=== PATIENT | female | born 1955 | race Caucasian/White ===

== ENCOUNTER 2016-07-28 18:24 | Inpatient (IN) | payer MEDICARE, MEDICAID ==
[2016-07-28] MEDS: NITROFURANTOIN MONOHYD/M-CRYST 100 MG CAPSULE PO SCH ×2 (18:00→23:40)
[2016-07-28 20:47] LABS: ABSOLUTE BASOPHILS # (AUTO) 0.1 10^3/uL (0.0-0.2); ABSOLUTE LYMPHOCYTES (AUTO) 2.6 10^3/uL (0.5-4.7); ABSOLUTE MONOCYTES (AUTO) 1.2 10^3/uL (0.1-1.4); BASOPHILS % (AUTO) 0.7 % (0-2); EOSINOPHILS % (AUTO) 0.1 % (0-6); HEMATOCRIT 29.8 % (36.0-47.0); HEMOGLOBIN 9.7 g/dL (12.0-15.5); HGB HCT DIFFERENCE -0.7; MEAN CORPUSCULAR HGB CONC 32.6 g/dL (32.0-36.0); MEAN CORPUSCULAR VOLUME 86 fl (80-97); MONOCYTES % (AUTO) 12.3 % (3-13); RED BLOOD COUNT 3.46 10^6/uL (3.72-5.28); RED CELL DISTRIBUTION WIDTH 13.9 % (11.5-14.0); SEGMENTED NEUTROPHILS % (AUTO) 60.9 % (42-78); WHITE BLOOD COUNT 9.8 10^3/uL (4.0-10.5)
[2016-07-28 21:00] LABS: ALANINE AMINOTRANSFERASE 23 U/L (9-52); ALBUMIN 4.3 g/dL (3.5-5.0); ALKALINE PHOSPHATASE 87 U/L (38-126); ANION GAP 15 (5-19); ASPARTATE AMINO TRANSFERASE 17 U/L (14-36); BILIRUBIN,TOTAL 0.5 mg/dL (0.2-1.3); BLOOD UREA NITROGEN 34 mg/dL (7-20); CARBON DIOXIDE 24 mmol/L (22-30); CHLORIDE 106 mmol/L (98-107); CREATININE RESULT 0.83 mg/dL (0.52-1.25); GLUCOSE 100 mg/dL (75-110); SODIUM 145.3 mmol/L (137-145); TOTAL PROTEIN 8.1 g/dL (6.3-8.2)
[2016-07-28 21:01] LABS: ALCOHOL < 10 mg/dL (NONE DETECTED)
[2016-07-28 22:40] LABS: APPEARANCE,URINE CLOUDY; BILIRUBIN,URINE NEGATIVE (NEGATIVE); GLUCOSE, URINE NEGATIVE (NEGATIVE); KETONES,URINE TRACE mg/dL (NEGATIVE); LEUKOCYTE ESTERASE,URINE LARGE (NEGATIVE); NITRITE,URINE NEGATIVE (NEGATIVE); PROTEIN,URINE 30 mg/dL (NEGATIVE); URINE SPECIFIC GRAVITY 1.023; UROBILINOGEN,URINE NEGATIVE mg/dL (<2.0)
[2016-07-28 22:59] LABS: URINE BARBITURATES SCREEN NEGATIVE; URINE METHADONE SCREEN NEGATIVE; URINE OPIATES LOW NEGATIVE; URINE PHENCYCLIDINE SCREEN NEGATIVE
[2016-07-28] MEDS ORDERED: CEFTRIAXONE INJ 500 MG VIAL IM ONE (23:02)
--- NOTE | 2016-07-28 23:06 | ER Document Report ---
ED Psych Disorder / Suicide - General Chief Complaint: Psych Problem Stated Complaint: BEHAVIOR ISSUES Time seen by provider: 23:03 Mode of Arrival: Medic Information source: Patient Notes: This is a 60-year-old female with a known history of schizophrenia and bipolar affective disorder with multiple presentations to the emergency room for altered mental status. Records show that she's had worsening mental status in the past in the setting of a UTI. The patient was brought into the emergency room because she became violent with the staff at the [facility]. TRAVEL OUTSIDE OF THE [place] IN LAST 30 DAYS: No - HPI Patient complains to provider of: Aggression, Agitated Onset: Just prior to arrival Onset was: Sudden Quality of pain: No pain Severity: None Pain Level: Denies Suicide Risk Factors: Bipolar, Chronic illness, Loss of rational thought, Schizophrenia Situational problems related to: denies: Daughter, Legal problems, Lost job, Parent, Recent , Recent divorce, School, Sexual orientation, Significant other, Son, Spouse, Work, Other Suicide Attempt Method: denies: Drowning, Hanging, Motor Vehicle, Overdose, Shooting, Stabbing/Cutting, Train, Other Overdose of: No: Acetominophen, Alcohol, Anticholinergic, Anti-depressants, Benzodiazepine, Salicylate, Tricyclic Antidepressant, Other Injury to: No: Generalized, Abdomen, Ankle, Back, Breast, Buttocks, Chest, Elbow , Epigastric, Flank, Face, Finger, Foot, Hand, Head, Hip, Knee, Leg, Lower extremity, Mouth, Neck, Pelvic, Penis, Perineum, Rectum, Shoulder, Testicle, Thigh, Throat, Trunk, Upper extremity, Vagina, Wrist Normal mood: No - labile Associated symptoms: Labile Similar symptoms previously: Yes Recently seen / treated by doctor: Yes - Related Data Allergies/Adverse Reactions: No Known Allergies Allergy (Verified 05/10/15 03:53) Past Medical History - General Information source: Patient - Social History Smoking Status: Never Smoker Cigarette use (# per day): No Chew tobacco use (# tins/day): No Frequency of alcohol use: None Drug Abuse: None Lives with: Other - The [facility] Family History: Reviewed & Not Pertinent Patient has suicidal ideation: No Patient has homicidal ideation: No - Past Medical History Cardiac Medical History: Reports: Hx Coronary Artery Disease, Hx Hypercholesterolemia, Hx Hypertension Denies: Hx Heart Attack Pulmonary Medical History: Denies: Hx Asthma, Hx Bronchitis, Hx COPD, Hx Pneumonia Neurological Medical History: Reports: Hx Seizures Musculoskeltal Medical History: Denies Hx Arthritis Skin Medical History: Reports Hx Eczema, Reports Hx MRSA Psychiatric Medical History: Reports: Hx Anxiety, Hx Dementia, Hx Obsessive Compulsive Disorder, 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 Past Surgical History: Reports: Hx Orthopedic Surgery - right index amputation, left index area removal - Immunizations Hx Diphtheria, Pertussis, Tetanus Vaccination: Yes Review of Systems - Review of Systems Constitutional: denies: Chills, Fever EENT: No symptoms reported Cardiovascular: No symptoms reported Respiratory: No symptoms reported Gastrointestinal: No symptoms reported Genitourinary: No symptoms reported Female Genitourinary: No symptoms reported Musculoskeletal: No symptoms reported Skin: No symptoms reported Hematologic/Lymphatic: No symptoms reported Neurological/Psychological: See HPI Physical Exam - Vital signs Vitals: Temp Pulse Resp BP Pulse Ox 98.9 F 94 20 134/94 H 95 07/28/16 18:59 07/28/16 18:59 07/28/16 18:59 07/28/16 18:59 07/28/16 18:59 Notes: Physical exam: GENERAL: 60-year-old female, appears emotionally labile, she is alert and walking around the room. She is afebrile with stable vital signs. She does not appear to be in any distress. HEAD: Atraumatic, normocephalic. EYES: Pupils equal round and reactive to light, extraocular movements intact, sclera anicteric, conjunctiva are normal. ENT: TMs normal, nares patent, oropharynx clear without exudates. Moist mucous membranes. NECK: Normal range of motion, supple without lymphadenopathy or JVD. LUNGS: Breath sounds clear to auscultation bilaterally and equal. No wheezes rales or rhonchi. HEART: Regular rate and rhythm without murmurs, rubs or gallops. ABDOMEN: Soft, normoactive bowel sounds. No tenderness to palpation. No guarding, no rebound. No masses appreciated. EXTREMITIES: Normal range of motion, no pitting or edema. No clubbing or cyanosis. NEUROLOGICAL: Cranial nerves II through XII grossly intact. Normal speech, normal gait. PSYCH: Normal mood, normal affect. SKIN: Warm, Dry, normal turgor, no rashes or lesions noted. Course - Re-evaluation Re-evalutation: 07/28/16 23:06 Note: It might be that the patient's psychiatric illness is worse in the setting of a UTI. The plan will be to treat for a UTI and to observe her overnight and have psychiatry reassess her tomorrow. I do not see any evidence of acute delirium. The patient is walking around and is quite alert and in no distress. [facility] and she does have a history of this and the settings of UTIs. - Vital Signs Vital signs: Temp Pulse Resp BP Pulse Ox 98.9 F 94 20 134/94 H 95 07/28/16 18:59 07/28/16 18:59 07/28/16 18:59 07/28/16 18:59 07/28/16 18:59 - Laboratory Result Diagrams: 07/28/16 20:30 07/28/16 20:30 Laboratory results interpreted by me: 07/28/16 07/28/16 07/28/16 20:30 20:30 21:13 RBC 3.46 L Hgb 9.7 L Hct 29.8 L Sodium 145.3 H BUN 34 H Urine Protein 30 H Urine Ketones TRACE H Ur Leukocyte Esterase LARGE H Salicylates < 1.0 L Acetaminophen < 10 L - EKG Interpretation by Me Rate: Normal Rhythm: NSR - EKG shows normal sinus rhythm with left ventricular hypertrophy, no acute ST-T wave changes. Discharge - Discharge Clinical Impression: schizophrenia, UTI Condition: Stable Disposition: PSYCH HOSP/UNIT Referrals: JUAN M LE MD [Primary Care Provider] - Follow up as needed
[2016-07-29] MEDS ORDERED: HALOPERIDOL LACTATE INJ 5 MG/1 ML VIAL IM ONE ×2 (00:06→03:34)
[2016-07-29] MEDS ORDERED: LORAZEPAM INJ 2 MG/1 ML VIAL IM ONE ×2 (00:07→03:34)
[2016-07-29] MEDS ORDERED: DIPHENHYDRAMINE HCL 50 MG/ML VIAL IM ONE (00:07)
[2016-07-29] MEDS: NITROFURANTOIN MONOHYD/M-CRYST 100 MG CAPSULE PO SCH ×2 (00:30→17:15)
--- NOTE | 2016-07-29 04:02 | ER Document Report ---
Doctor's Note Notes: 07/29/16 04:01 Patient's continue to try to leave the room. She continued to fight with security. We did give her Haldol and Ativan. She continued to fight despite these medications. Patient will be placed in soft wrist restraints. This is to help keep her from eloping and keep her from being a danger to herself.
[2016-07-29] MEDS ORDERED: DIVALPROEX SODIUM 125 MG CAP.SPRINK PO ONE (07:58)
[2016-07-29] MEDS ORDERED: CLONIDINE HCL 0.2 MG TABLET PO ONE (09:22)
[2016-07-29] MEDS: DIVALPROEX SODIUM 125 MG CAP.SPRINK PO SCH ×2 (09:32→17:13)
[2016-07-29] MEDS ORDERED: HYDROXYZINE PAMOATE 50 MG CAPSULE PO ONE (09:54)
--- NOTE | 2016-07-29 11:24 | PSYCHOLOGICAL NOTE ---
Psych Note - Psych Note Psych Note: Patient presented to [facility] ED with known history of schizophrenia and bipolar affective disorder with multiple presentations to the emergency room for altered mental status. Records show that she's had worsening mental status in the past in the setting of a UTI. The patient was brought into the emergency room because [facility] Clinician observes patient pressure around on bed attempting to communicate however unable to understand what patient is attempting to say. Patient's voice is low in sounds coming out sound as if patient is very hoarse; clinician notes tone and prosody is at baseline for patient; however rate, and thought process is not at baseline. Patient makes eye contact well attempting to speak. Patient is demonstrating behavior that she is responding to internal stimuli with eyes moving around the room, appearing to jump in surprise at times , and attempting communicate in several directions. Diagnosis: Vascular Dementia Based on review of past medical records to include CT scans from 9250-8324, the patient's reaction to benzodiazepines and antipsychotics, and the patient's presentation, evidence indicates Vascular Dementia. Any antipsychotic medication or benzodiazepines will aggravate symptoms. Unspecified Schizophrenia or psychosis per history
--- NOTE | 2016-07-29 14:53 | ER Document Report ---
Doctor's Note Notes: 07/29/16 14:52 Rounds: Chart reviewed and patient interviewed. Patient not making any sense in her conversation and is very anxious and agitated. Vital signs are all essentially normal, although she does have some slight increase in heart rate and respiratory rate this afternoon. Initial labs show no acute problems. Chronic appearing anemia. Patient appears to be medically stable for transfer or discharge. Yasir Bernal M.D. 07/29/16 20:10 Patient continues to be intermittently agitated rolling about in the bed with her soft restraints on her wrists. There is some rubbing of the tissue at the wrist concerning the nursing staff that the patient may get some skin breakdown. We're going to try to reinforce with some padding. I'm giving the patient an extra 0.25 mg of Risperdal now.
[2016-07-29] MEDS ORDERED: RISPERIDONE 0.25 MG TABLET PO ONE ×2 (14:59→20:09)
--- NOTE | 2016-07-29 16:55 | EKG REPORT ---
SEVERITY:- ABNORMAL ECG - SINUS RHYTHM LEFT VENTRICULAR HYPERTROPHY : Confirmed by: Lara Ness MD 29-Jul-2016 16:54:25
[2016-07-29] MEDS ORDERED: RISPERIDONE 0.25 MG TABLET PO SCH ×2 (18:00)
[2016-07-29] MEDS: BUSPIRONE HCL 10 MG TABLET PO SCH (22:06)
[2016-07-30] MEDS: NITROFURANTOIN MONOHYD/M-CRYST 100 MG CAPSULE PO SCH (08:14)
--- NOTE | 2016-07-30 08:50 | PSYCHOLOGICAL NOTE ---
Psych Note - Psych Note Psych Note: Check in Patient presented to [facility] ED with known history of schizophrenia and bipolar affective disorder with multiple presentations to the emergency room for altered mental status. Records show that she's had worsening mental status in the past in the setting of a UTI. The patient was brought into the emergency room because [facility] Patient was able to communicate with some words instead of grunting earlier this morning however is still actively hallucinating. Overall, communication with patient is unsuccessful and currently patient is using hands and sounds in an attempt to communicate. Patient is still trashing around on bed and is currently in soft restraints. Records indicate that patient did get some rest after evening medications. Diagnosis: Vascular Dementia Based on review of past medical records to include CT scans from [id number], the patient's reaction to benzodiazepines and antipsychotics, and the patient's presentation, evidence indicates Vascular Dementia. Any antipsychotic medication or benzodiazepines will aggravate symptoms. Unspecified Schizophrenia or psychosis per history Addendum: Clinician spoke with patient's sister, Shu, she states that her sister is "not like this" normally. She does have good days and bad but she is able to go out in the community to [employer] and show what shed would like to have. She is also able to communicate. She continued to state that in the past she know that she has had mental health issues when she has a UTI.
[2016-07-30] MEDS ORDERED: LIDOCAINE 1% INJ-PF (10 MG/ML) 30 ML SDV INJ ONE (09:51)
[2016-07-30] MEDS ORDERED: CEFTRIAXONE INJ 1000 MG VIAL IM ONE (09:51)
--- NOTE | 2016-07-30 09:51 | ER Document Report ---
Doctor's Note Notes: 07/30/16 09:44 Rounds: Chart reviewed and patient evaluated. Patient continues to thrash about mumbling unintelligible words her statements. She is moving all 4 extremities. Her upper extremities are restrained with soft restraints to prevent self-harm or falling out of the bed, etc. Patient's behavior has shown little change, if any, since medications were initiated. We have started her on Depakote 500 mg twice a day and Risperdal 0.25 at 8 AM and again at 3 PM daily. She's currently on nitrofurantoin for UTI. I just called the lab and they're reporting out greater than 100,000 enterococcus growing on her urine culture and sensitivities will be available tomorrow. I'm going to give the patient an injection of Rocephin IM to feel more certain that the patient is getting sufficient antibiotic treatment for a UTI. I still don't think the UTI counts for much, if any, of the patient's mental status alteration or behavior that she is exhibiting. Patient's vital signs are normal, not febrile. Other labs are essentially normal. And the patient reportedly has episodes like this with UTIs in the past. She is a resident at [facility] and very likely some of her behavior is chronic dementia related. But, I still think the patient needs some additional sedation medication. Yasir Bernal M.D. 07/30/16 20:39 Patient continues to be agitated and acting the same way she has been up until now. Family came to visit and says that this behavior is not like her at all. Nurse reports to me that the patient has a low-grade temp, 100.5. A rectal showed a temp of about the same. I will order to re-draw of patients basic labs and a couple of blood cultures and I've ordered another gram of Rocephin for tomorrow morning. Yasir Bernal M.D.
[2016-07-30] MEDS: DIVALPROEX SODIUM 125 MG CAP.SPRINK PO SCH ×2 (11:00→19:30)
[2016-07-30] MEDS ORDERED: RISPERIDONE 0.25 MG TABLET PO SCH (15:00)
[2016-07-30] MEDS ORDERED: HYDROXYZINE PAMOATE 50 MG CAPSULE PO ONE (20:33)
[2016-07-30 22:14] LABS: ABSOLUTE BASOPHILS # (AUTO) 0.1 10^3/uL (0.0-0.2); ABSOLUTE LYMPHOCYTES (AUTO) 1.9 10^3/uL (0.5-4.7); ABSOLUTE MONOCYTES (AUTO) 1.3 10^3/uL (0.1-1.4); ABSOLUTE NEUT (AUTO) 10.3 10^3/uL (1.7-8.2); BASOPHILS % (AUTO) 0.5 % (0-2); HEMATOCRIT 33.9 % (36.0-47.0); HEMOGLOBIN 11.1 g/dL (12.0-15.5); HGB HCT DIFFERENCE -0.6; LYMPHOCYTES % (AUTO) 14.2 % (13-45); MEAN CORPUSCULAR HEMOGLOBIN 27.6 pg (27.0-33.4); MEAN CORPUSCULAR HGB CONC 32.8 g/dL (32.0-36.0); MEAN CORPUSCULAR VOLUME 84 fl (80-97); MONOCYTES % (AUTO) 9.5 % (3-13); RED BLOOD COUNT 4.03 10^6/uL (3.72-5.28); RED CELL DISTRIBUTION WIDTH 13.6 % (11.5-14.0); SEGMENTED NEUTROPHILS % (AUTO) 75.8 % (42-78); WHITE BLOOD COUNT 13.5 10^3/uL (4.0-10.5)
[2016-07-30] MEDS: BUSPIRONE HCL 10 MG TABLET PO SCH (22:25)
[2016-07-30 22:32] LABS: ALANINE AMINOTRANSFERASE 32 U/L (9-52); ALKALINE PHOSPHATASE 95 U/L (38-126); ASPARTATE AMINO TRANSFERASE 48 U/L (14-36); BILIRUBIN,TOTAL 0.9 mg/dL (0.2-1.3); BLOOD UREA NITROGEN 35 mg/dL (7-20); CALCIUM 10.7 mg/dL (8.4-10.2); CREATINE KINASE 954 U/L (30-135); CREATININE RESULT 0.91 mg/dL (0.52-1.25); GLUCOSE 99 mg/dL (75-110); TOTAL PROTEIN 8.9 g/dL (6.3-8.2)
[2016-07-30 22:56] LABS: ANION GAP 23 (5-19)
[2016-07-30 22:57] LABS: CARBON DIOXIDE 21 mmol/L (22-30); CHLORIDE 112 mmol/L (98-107); POTASSIUM 3.8 mmol/L (3.6-5.0); SODIUM 155.5 mmol/L (137-145)
[2016-07-31] MEDS ORDERED: DEXTROSE 5% IV ONE (01:37)
[2016-07-31] MEDS ORDERED: 1/2 NORMAL SALINE IV ONE (01:37)
[2016-07-31] MEDS ORDERED: HALOPERIDOL LACTATE INJ 5 MG/1 ML VIAL IM ONE (01:38)
[2016-07-31] MEDS ORDERED: CEFTRIAXONE INJ 1000 MG VIAL IV ONE (02:20)
--- NOTE | 2016-07-31 02:26 | ER Document Report ---
ED General - General Chief Complaint: Psych Problem Stated Complaint: BEHAVIOR ISSUES Mode of Arrival: Medic TRAVEL OUTSIDE OF THE [place] IN LAST 30 DAYS: No - Related Data Allergies/Adverse Reactions: Benzodiazepines Adverse Reaction (Verified 07/29/16 16:17) Abnormal behavior anti-psychotics Adverse Reaction (Uncoded 07/29/16 16:14) Abnormal behavior Home Medications: Current Home Medications Acetaminophen [Tylenol 325 mg Tablet] 650 mg PO Q8 07/29/16 [History] Aripiprazole [Abilify 10 mg Tablet] 10 mg PO DAILY 07/29/16 [History] Benztropine Mesylate [Benztropine Mesylate 2 mg Tablet] 2 mg PO BID 07/29/16 [ History] Bisacodyl [Dulcolax 5 mg Tablet] 10 mg PO Q2D 07/29/16 [History] Calcium Carbonate [Calcium] 500 mg PO Q4HP PRN 07/29/16 [History] Divalproex Sodium 250 mg PO QHS 07/29/16 [History] Docusate Sodium [Colace 100 mg Capsule] 100 mg PO QHS 07/29/16 [History] Haloperidol [Haldol 2 mg Tablet] 2 mg PO BID 07/29/16 [History] Lorazepam 2 mg PO Q6HP PRN 07/29/16 [History] Lorazepam [Ativan 1 mg Tablet] 1 mg PO BID 07/29/16 [History] Past Medical History - General Information source: Patient - Social History Smoking Status: Never Smoker Cigarette use (# per day): No Chew tobacco use (# tins/day): No Frequency of alcohol use: None Drug Abuse: None [facility] Family History: Reviewed & Not Pertinent Patient has suicidal ideation: No Patient has homicidal ideation: No - Past Medical History Cardiac Medical History: Reports: Hx Coronary Artery Disease, Hx Hypercholesterolemia, Hx Hypertension Denies: Hx Heart Attack Pulmonary Medical History: Denies: Hx Asthma, Hx Bronchitis, Hx COPD, Hx Pneumonia Neurological Medical History: Reports: Hx Seizures Musculoskeltal Medical History: Denies Hx Arthritis Skin Medical History: Reports Hx Eczema, Reports Hx MRSA Psychiatric Medical History: Reports: Hx Anxiety, Hx Dementia, Hx Obsessive Compulsive Disorder, 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 She has a history of vascular dementia and schizophrenia. She has been agitated frequently throughout her ER stay and has received multiple doses of antipsychotics. RN alerted me to patient's labs that showed a CK of 987 and sodium that increased from 145-155. In addition, she now has a leukocytosis with UTI symptoms. 2L bolus of D5-1/2NS. Patient will require medical admission for IV antibiotics and further evaluation and treatment before she is able to be medically cleared for psychiatric evaluation. Will send a lactate because of multiple SIRS criteria. Pt of Dr. Le's. Spoke to Dr. Cordero at 02:30 and he has accepted patient as Inpatient Tele. - Vital Signs Vital signs: Temp Pulse Resp BP Pulse Ox 100.6 F H 58 L 22 H 132/75 H 96 07/30/16 19:45 07/30/16 18:55 07/30/16 18:55 07/30/16 18:55 07/30/16 18:55 - Laboratory Result Diagrams: 07/30/16 21:45 07/30/16 21:45 Laboratory results interpreted by me: 07/28/16 07/28/16 07/28/16 20:30 20:30 21:13 WBC RBC 3.46 L Hgb 9.7 L Hct 29.8 L Absolute Neutrophils Sodium 145.3 H Chloride Carbon Dioxide Anion Gap BUN 34 H Calcium AST Creatine Kinase Total Protein Urine Protein 30 H Urine Ketones TRACE H Ur Leukocyte Esterase LARGE H Salicylates < 1.0 L Acetaminophen < 10 L 07/30/16 07/30/16 21:45 21:45 WBC 13.5 H RBC Hgb 11.1 L Hct 33.9 L Absolute Neutrophils 10.3 H Sodium 155.5 H Chloride 112 H Carbon Dioxide 21 L Anion Gap 23 H BUN 35 H Calcium 10.7 H AST 48 H Creatine Kinase 954 H Total Protein 8.9 H Urine Protein Urine Ketones Ur Leukocyte Esterase Salicylates Acetaminophen Discharge - Discharge Clinical Impression: UTI, schizophrenia Altered mental status Qualifiers: Altered mental status type: unspecified Qualified Code(s): R41.82 - Altered mental status, unspecified Condition: Stable Disposition: ADMITTED INPATIENT Admitting Provider: [facility] Unit Admitted: Telemetry Referrals: JUAN M LE MD [Primary Care Provider] - Follow up as needed
[2016-07-31] MEDS ORDERED: KETOROLAC TROMETHAMINE INJ/PF 30 MG/1 ML SDV IV ONE (02:27)
[2016-07-31] MEDS ORDERED: LORAZEPAM INJ 2 MG/1 ML VIAL IV ONE (03:03)
[2016-07-31] MEDS ORDERED: DEXTROSE 5%-1/2 NORMAL SALINE 1,000 ML IV PRN (05:17)
[2016-07-31] MEDS ORDERED: LORAZEPAM 1 MG TABLET PO PRN (05:17)
[2016-07-31] MEDS ORDERED: LIDOCAINE 1% INJ-PF (10 MG/ML) 30 ML SDV INJ SCH (08:00)
[2016-07-31] MEDS ORDERED: CEFTRIAXONE INJ 1000 MG VIAL IM SCH (08:00)
[2016-07-31] MEDS ORDERED: (PENDING PHARMACY ID) (Calcium Carbonate [Calcium] 500 MG) PO PRN (09:02)
[2016-07-31] MEDS ORDERED: (PENDING PHARMACY ID) (Lorazepam [Lorazepam] 2 MG) PO PRN (09:02)
[2016-07-31] MEDS ORDERED: BISACODYL 5 MG TABEC PO SCH (09:15)
--- NOTE | 2016-07-31 09:25 | PSYCHOLOGICAL NOTE ---
Psych Note - Psych Note Psych Note: Patient is a 60 year old female who has been admitted to [facility] due to complications due to UTI. Patient is a resident at [facility], which per record, is where she is scheduled to return. Patient has been evaluated multiple times here in the Department by Dr. Alvarado as well as medical staff. Patient's record suggests a history of Vascular Dementia, and per sister has exasperated mental health symptoms when experiencing medical complications. Patient at this time is recommended for rescind IVC due to the medical etiology of her presentation. I consulted with Dr. Alvarado in regards to the care and management of this patient. Hospitalist Dr. Cordero made aware of recommendations; however, disagrees re: the rescind of IVC. Patient is discharged from this services at this time. Please reconsult at a later time should the need arise for further evaluation. Thank you kindly for this referral. Diagnosis: Vascular Dementia Based on review of past medical records to include CT scans from [id number], the patient's reaction to benzodiazepines and antipsychotics, and the patient's presentation, evidence indicates Vascular Dementia. Any antipsychotic medication or benzodiazepines will aggravate symptoms. Unspecified Schizophrenia or psychosis per history
[2016-07-31] MEDS ORDERED: CALCIUM CARBONATE 500 MG TAB.CHEW PO PRN (09:30)
[2016-07-31] MEDS ORDERED: LORAZEPAM 1 MG TABLET PO SCH (10:00)
[2016-07-31] MEDS ORDERED: HALOPERIDOL 2 MG TABLET PO SCH (10:00)
[2016-07-31] MEDS ORDERED: (PENDING PHARMACY ID) (Aripiprazole [Abilify 10 Mg Tablet] 10 MG) PO SCH (10:00)
[2016-07-31] MEDS ORDERED: ARIPIPRAZOLE 5 MG TABLET PO SCH (10:00)
[2016-07-31] MEDS ORDERED: LORAZEPAM INJ 2 MG/1 ML VIAL IV PRN (10:41)
[2016-07-31] MEDS: LORAZEPAM 1 MG TABLET PO SCH ×2 (11:16→17:55)
[2016-07-31] MEDS: BENZTROPINE MESYLATE 1 MG TABLET PO SCH ×2 (11:16→17:56)
[2016-07-31] MEDS: CEFTRIAXONE 1 GM/D5W RTU 1 GM/50 ML RTUPB IV SCH (11:17)
[2016-07-31] MEDS: BISACODYL 5 MG TABEC PO SCH (11:18)
[2016-07-31] MEDS: ACETAMINOPHEN 325 MG TABLET PO SCH ×3 (11:18→23:04)
[2016-07-31] MEDS ORDERED: RISPERIDONE 0.25 MG TABLET PO ONE (11:30)
--- NOTE | 2016-07-31 11:52 | PDOC H&P ---
History of Present Illness Admission Date/PCP: 07/31/16 02:43 JUAN M LE MD Patient complains of: Altered mental status History of Present Illness: VALERY SORIA is a 60 year old female This is a 60-year-old female came to the emergency department for several days. She had a history of the muscular dementia and schizophrenia. was hesitated frequently throughout the her ER stay and that is symptomatic per dose of the antipsychotic. The the nurses so monitor the patient's supposed the patient's CK was 987 and patient's some sodium is going to up to 145-155 and the patient's also have a elevated white counts with the urinary symptoms. At this point patient's was given IV antibiotic and IV fluid and admitting in the hospital for further medical treatments. Patient's serum also seen by the psychologist and suggest the DC the all psychiatric medications as per discussed with myself and suggest to use the BuSpar and that aspirated all. Patient was admitting in the hospital for the IV antibiotic and IV fluid. When I saw the patient's in the ER room patient still was a little agitated and according to the staff patient have this before ongoing problem for to further ongoing schizophrenia and a vascular dementia. Past Medical History Cardiac Medical History: Reports: Coronary Artery Disease, Hyperlipidema, Hypertension Denies: Myocardial Infarction Pulmonary Medical History: Denies: Asthma, Bronchitis, Chronic Obstructive Pulmonary Disease (COPD), Pneumonia Neurological Medical History: Reports: Seizures Musculoskeltal Medical History: Denies: Arthritis Skin Medical History: Reports: Eczema Psychiatric Medical History: Reports: Dementia Hematology: Denies: Anemia Past Surgical History Past Surgical History: Reports: Orthopedic Surgery - right index amputation, left index area removal Social History [facility] with: [facility] Smoking Status: Never Smoker - Advance Directive Resuscitation Status: Full Code Family History Family History: Reviewed & Not Pertinent Parental Family History Reviewed: Yes Children Family History Reviewed: Yes Sibling(s) Family History Reviewed.: Yes Medication/Allergy Home Medications: Haloperidol [Haldol 5 mg Tablet] 5 mg PO BID 11/16/13 Ibuprofen [Motrin 600 Mg Tablet] 600 mg PO TID #30 tablet 03/29/15 Acetaminophen [Tylenol 325 mg Tablet] 650 mg PO Q8 07/29/16 Aripiprazole [Abilify 10 mg Tablet] 10 mg PO DAILY 07/29/16 Benztropine Mesylate [Benztropine Mesylate 2 mg Tablet] 2 mg PO BID 07/29/16 Bisacodyl [Dulcolax 5 mg Tablet] 10 mg PO Q2D 07/29/16 Calcium Carbonate [Calcium] 500 mg PO Q4HP PRN 07/29/16 Divalproex Sodium 250 mg PO QHS 07/29/16 Docusate Sodium [Colace 100 mg Capsule] 100 mg PO QHS 07/29/16 Haloperidol [Haldol 2 mg Tablet] 2 mg PO BID 07/29/16 Lorazepam 2 mg PO Q6HP PRN 07/29/16 Lorazepam [Ativan 1 mg Tablet] 1 mg PO BID 07/29/16 Allergies/Adverse Reactions: Benzodiazepines Adverse Reaction (Verified 07/31/16 11:29) anti-psychotics Adverse Reaction (Uncoded 07/29/16 16:14) Abnormal behavior Review of Systems ROS unobtainable: Due to mental status All systems: as per [facility] Physical Exam Vital Signs: Temp Pulse Resp BP Pulse Ox 98.4 F 92 21 H 119/65 99 07/31/16 08:45 07/31/16 08:45 07/31/16 08:45 07/31/16 08:45 07/31/16 08:45 General appearance: PRESENT: no acute distress, other - Noncooperative and very agitated Head exam: PRESENT: normocephalic Eye exam: PRESENT: EOMI Neck exam: ABSENT: carotid bruit, full ROM, JVD, lymphadenopathy, meningismus, tenderness, thyromegaly, tracheal deviation, tracheostomy, other Respiratory exam: ABSENT: accessory muscle use, chest wall tenderness, clear to auscultation meera, crackles, decreased breath sounds, prolonged expiratory phas, rales, retraction, rhonchi, stridor, symmetrical, tachypnea, unlabored, wheezes , other Cardiovascular exam: ABSENT: bradycardia, clicks, diastolic murmur, gallop, irregular rhythm, RRR, rubs, +S1, +S2, systolic murmur, tachycardia, other GI/Abdominal exam: ABSENT: ascites, diminished bowel sounds, distended, firm, guarding, hernia, hyperactive bowel sounds, hypoactive bowel sounds, mass, Khan's sign, normal bowel sounds, organolmegaly, rebound, rigid, soft, tenderness, other Extremities exam: ABSENT: pedal edema Neurological exam: PRESENT: alert, altered, awake Psychiatric exam: PRESENT: agitated, anxious Skin exam: PRESENT: dry Results Laboratory Results: 07/31/16 07/31/16 03:27 08:04 Lactic Acid 3.1 H 1.3 Assessment & Plan - Diagnosis (1) Urinary tract infection Qualifiers: Urinary tract infection type: site unspecified Is this a current diagnosis for this admission?: YesPlan: Start the patient on IV Rocephin and await for the culture (2) Leukocytosis Qualifiers: Leukocytosis type: unspecified Qualified Code(s): D72.829 - Elevated white blood cell count, unspecified Is this a current diagnosis for this admission?: YesPlan: Continues to IV antibiotic (3) Dementia Qualifiers: Dementia type: unspecified type Is this a current diagnosis for this admission?: YesPlan: Patient have a known history of the vascular dementia (4) Altered mental status Qualifiers: Altered mental status type: unspecified Qualified Code(s): R41.82 - Altered mental status, unspecified Is this a current diagnosis for this admission?: YesPlan: We will get the CT of the head (5) Schizophrenia Qualifiers: Schizophrenia type: unspecified Qualified Code(s): F20.9 - Schizophrenia, unspecified Is this a current diagnosis for this admission?: YesPlan: Discussed with the psych and follow with the psych (6) Hypernatremia Is this a current diagnosis for this admission?: YesPlan: Start the patient on a D5 1 half normal saline with the underlying some rhabdo due to the most agitated behavior - Time Time Spent: 30 to 50 Minutes Medications reviewed and adjusted accordingly: Yes Anticipated discharge: Other Within: Other - Inpatient Certification Medical Necessity: Need Close Monitoring Due to Risk of Patient Decompensation, Need for IV Antibiotics Post Hospital Care: D/C Sole Splitter Documentation - Plan Summary Plan Summary: Patient is admitted for UTI and altered mental status and hypernatremic dehydration's start the patient on IV Rocephin IV fluid and possible underlying rhabdo. Discussed with the psychologist and adjust psych medications and continues to monitor the patient's will get the CT of the head
[2016-07-31] MEDS ORDERED: DOCUSATE SODIUM 100 MG CAPSULE PO SCH (22:00)
[2016-07-31] MEDS ORDERED: DIVALPROEX SODIUM 250 MG TABLET.DR PO SCH (22:00)
[2016-07-31] MEDS: RISPERIDONE 0.25 MG TABLET PO SCH (23:04)
[2016-07-31] MEDS: DIVALPROEX SODIUM 250 MG TAB.SR.24H PO SCH (23:04)
[2016-07-31] MEDS: BUSPIRONE HCL 10 MG TABLET PO SCH (23:04)
[2016-07-31] MEDS: DOCUSATE SODIUM 100 MG CAPSULE PO SCH (23:04)
[2016-07-31] MEDS: DEXTROSE 5%-1/2 NORMAL SALINE 1,000 ML IV PRN (23:31)
[2016-08-01] MEDS: ACETAMINOPHEN 325 MG TABLET PO SCH ×3 (05:35→23:18)
[2016-08-01] MEDS ORDERED: LORAZEPAM INJ 2 MG/1 ML VIAL IV PRN (06:00)
[2016-08-01 06:54] LABS: ABSOLUTE LYMPHOCYTES (AUTO) 2.3 10^3/uL (0.5-4.7); ABSOLUTE NEUT (AUTO) 5.5 10^3/uL (1.7-8.2); BASOPHILS % (AUTO) 0.2 % (0-2); EOSINOPHILS % (AUTO) 0.3 % (0-6); HEMATOCRIT 29.8 % (36.0-47.0); HEMOGLOBIN 9.8 g/dL (12.0-15.5); HGB HCT DIFFERENCE -0.4; MEAN CORPUSCULAR HGB CONC 32.8 g/dL (32.0-36.0); MEAN CORPUSCULAR VOLUME 85 fl (80-97); MONOCYTES % (AUTO) 11.5 % (3-13); RED BLOOD COUNT 3.49 10^6/uL (3.72-5.28); RED CELL DISTRIBUTION WIDTH 13.9 % (11.5-14.0); WHITE BLOOD COUNT 8.8 10^3/uL (4.0-10.5)
[2016-08-01 07:17] LABS: ANION GAP 14 (5-19); BLOOD UREA NITROGEN 22 mg/dL (7-20); CALCIUM 9.2 mg/dL (8.4-10.2); CARBON DIOXIDE 23 mmol/L (22-30); CHLORIDE 114 mmol/L (98-107); CREATININE RESULT 0.53 mg/dL (0.52-1.25); GLUCOSE 107 mg/dL (75-110); POTASSIUM 3.2 mmol/L (3.6-5.0); SODIUM 151.4 mmol/L (137-145)
[2016-08-01] MEDS: LORAZEPAM 1 MG TABLET PO SCH ×2 (09:59→17:27)
[2016-08-01] MEDS: RISPERIDONE 0.25 MG TABLET PO SCH (10:00)
[2016-08-01] MEDS: BENZTROPINE MESYLATE 1 MG TABLET PO SCH ×2 (10:00→17:27)
[2016-08-01] MEDS: DEXTROSE 5%-1/2 NORMAL SALINE 1,000 ML IV PRN (10:05)
[2016-08-01] MEDS: CEFTRIAXONE 1 GM/D5W RTU 1 GM/50 ML RTUPB IV SCH (12:04)
--- NOTE | 2016-08-01 19:49 | PDOC PROGRESS REPORT ---
Subjective Progress Note for:: 08/01/16 Subjective:: She has schizophrenia and she is very disruptive, she has not been taking antipsychotic medications. she has been spitting out the PO antipsychotic medications .The urine culture grew enterococus faecalic sensitive to ampicillin Physical Exam Vital Signs: Temp Pulse Resp BP Pulse Ox 97.5 F 84 20 117/66 99 08/01/16 11:42 08/01/16 16:00 08/01/16 16:00 08/01/16 16:00 08/01/16 11:42 Intake & Output 07/31/16 08/01/16 08/02/16 06:59 06:59 06:59 Intake Total 878 1259 Balance 878 1259 General appearance: PRESENT: disheveled Eye exam: PRESENT: PERRLA Respiratory exam: PRESENT: clear to auscultation meera Cardiovascular exam: PRESENT: +S1, +S2 GI/Abdominal exam: PRESENT: soft Neurological exam: PRESENT: alert Results Laboratory Results: 08/01/16 06:40 08/01/16 06:40 08/01/16 08/01/16 06:40 06:40 WBC 8.8 RBC 3.49 L Hgb 9.8 L Hct 29.8 L MCV 85 MCH 28.0 MCHC 32.8 RDW 13.9 Plt Count 175 Seg Neutrophils % 62.0 Lymphocytes % 26.0 Monocytes % 11.5 Eosinophils % 0.3 Basophils % 0.2 Absolute Neutrophils 5.5 Absolute Lymphocytes 2.3 Absolute Monocytes 1.0 Absolute Eosinophils 0.0 Absolute Basophils 0.0 Sodium 151.4 H Potassium 3.2 L Chloride 114 H Carbon Dioxide 23 Anion Gap 14 BUN 22 H Creatinine 0.53 Est GFR ( Amer) > 60 Est GFR (Non-Af Amer) > 60 Glucose 107 Calcium 9.2 Impressions: Chest X-Ray 07/31/16 00:00 IMPRESSION: NO ACUTE RADIOGRAPHIC FINDING IN THE CHEST. Head CT 07/31/16 00:00 IMPRESSION: No acute abnormality in the brain. Assessment & Plan - Diagnosis (1) Enterococcus UTI Is this a current diagnosis for this admission?: YesPlan: Start ampicillin (2) Hypernatremia Is this a current diagnosis for this admission?: Yes (3) Schizophrenia Qualifiers: Schizophrenia type: unspecified Qualified Code(s): F20.9 - Schizophrenia, unspecified Is this a current diagnosis for this admission?: Yes
[2016-08-01] MEDS ORDERED: POTASSI CL 20 MEQ/50 ML RIDER 50 ML IV ONE (21:56)
[2016-08-02] MEDS: BUSPIRONE HCL 10 MG TABLET PO SCH ×2 (00:17→22:27)
[2016-08-02] MEDS: DIVALPROEX SODIUM 250 MG TAB.SR.24H PO SCH ×2 (00:17→22:26)
[2016-08-02] MEDS: AMPICILLIN SODIUM 750 GM in NORMAL SALINE 50 ML IV SCH ×2 (00:52→05:22)
[2016-08-02] MEDS: HALOPERIDOL LACTATE INJ 5 MG/1 ML VIAL IV PRN ×3 (00:53→13:05)
[2016-08-02] MEDS: DOCUSATE SODIUM 100 MG CAPSULE PO SCH ×2 (00:53→22:27)
[2016-08-02] MEDS: RISPERIDONE 0.25 MG TABLET PO SCH ×3 (00:53→22:26)
[2016-08-02] MEDS: ACETAMINOPHEN 325 MG TABLET PO SCH ×3 (05:23→22:27)
[2016-08-02] MEDS: NORMAL SALINE IV SCH ×2 (11:35→18:08)
[2016-08-02] MEDS: AMPICILLIN SODIUM IV SCH ×2 (11:35→18:08)
[2016-08-02] MEDS: BISACODYL 5 MG TABEC PO SCH (11:51)
[2016-08-02] MEDS: BENZTROPINE MESYLATE 1 MG TABLET PO SCH ×2 (11:51→20:18)
[2016-08-02] MEDS: LORAZEPAM 1 MG TABLET PO SCH ×2 (12:34→20:18)
[2016-08-02] MEDS: DEXTROSE 5%-1/2 NORMAL SALINE 1,000 ML IV PRN (13:05)
--- NOTE | 2016-08-02 19:11 | PDOC PROGRESS REPORT ---
Subjective Progress Note for:: 08/02/16 Subjective:: She has E faecalis UTI, she is not on any by mouth medications ,she is on IV medication .The IV line tissued on the right upper extremity Physical Exam Vital Signs: Temp Pulse Resp BP Pulse Ox 98.4 F 74 18 101/54 L 100 08/02/16 16:00 08/02/16 16:00 08/02/16 16:00 08/02/16 16:00 08/02/16 16:00 Intake & Output 08/01/16 08/02/16 08/03/16 06:59 06:59 06:59 Intake Total 878 2042 1267 Balance 878 2042 1267 General appearance: PRESENT: no acute distress Eye exam: PRESENT: PERRLA Respiratory exam: PRESENT: clear to auscultation meera Cardiovascular exam: PRESENT: +S1, +S2 Psychiatric exam: PRESENT: agitated Results Laboratory Results: 08/01/16 06:40 08/01/16 06:40 Impressions: Chest X-Ray 07/31/16 00:00 IMPRESSION: NO ACUTE RADIOGRAPHIC FINDING IN THE CHEST. Head CT 07/31/16 00:00 IMPRESSION: No acute abnormality in the brain. Assessment & Plan - Diagnosis (1) Enterococcus UTI Is this a current diagnosis for this admission?: YesPlan: Continue IV ampicillin (2) Hypernatremia Is this a current diagnosis for this admission?: Yes (3) Schizophrenia Qualifiers: Schizophrenia type: unspecified Qualified Code(s): F20.9 - Schizophrenia, unspecified Is this a current diagnosis for this admission?: YesPlan: Patient continues to nothing by mouth, she is psychotic
[2016-08-03] MEDS: DEXTROSE 5%-1/2 NORMAL SALINE 1,000 ML IV PRN (00:54)
[2016-08-03] MEDS: HALOPERIDOL LACTATE INJ 5 MG/1 ML VIAL IV PRN ×3 (00:54→08:58)
[2016-08-03] MEDS: NORMAL SALINE IV SCH ×4 (00:54→23:31)
[2016-08-03] MEDS: AMPICILLIN SODIUM IV SCH ×4 (00:54→23:31)
[2016-08-03] MEDS: ACETAMINOPHEN 325 MG TABLET PO SCH ×2 (05:54→15:45)
[2016-08-03] MEDS: BENZTROPINE MESYLATE 1 MG TABLET PO SCH (09:00)
[2016-08-03] MEDS: LORAZEPAM 1 MG TABLET PO SCH ×2 (09:00→23:32)
[2016-08-03] MEDS: RISPERIDONE 0.25 MG TABLET PO SCH (09:00)
--- NOTE | 2016-08-03 18:47 | PDOC PROGRESS REPORT ---
Subjective Progress Note for:: 08/03/16 Subjective:: Patient still very agitated, we need to get psych consult Physical Exam Vital Signs: Temp Pulse Resp BP Pulse Ox 99.6 F 78 18 105/80 99 08/03/16 11:47 08/03/16 11:47 08/03/16 11:47 08/03/16 11:47 08/03/16 11:47 Intake & Output 08/02/16 08/03/16 08/04/16 06:59 06:59 06:59 Intake Total 2041 2388 100 Balance 2041 2388 100 Weight 51 kg General appearance: PRESENT: other - extreme agitation Eye exam: PRESENT: PERRLA Respiratory exam: PRESENT: clear to auscultation meera Cardiovascular exam: PRESENT: +S2 Murmur grade: 3 Results Laboratory Results: 08/01/16 06:40 08/01/16 06:40 Impressions: Chest X-Ray 07/31/16 00:00 IMPRESSION: NO ACUTE RADIOGRAPHIC FINDING IN THE CHEST. Head CT 07/31/16 00:00 IMPRESSION: No acute abnormality in the brain. Assessment & Plan - Diagnosis (1) Enterococcus UTI Is this a current diagnosis for this admission?: Yes (2) Hypernatremia Is this a current diagnosis for this admission?: Yes (3) Schizophrenia Qualifiers: Schizophrenia type: unspecified Qualified Code(s): F20.9 - Schizophrenia, unspecified Is this a current diagnosis for this admission?: YesPlan: Psychiatric consultation
[2016-08-03] MEDS: DIVALPROEX SODIUM 250 MG TAB.SR.24H PO SCH (23:31)
[2016-08-04] MEDS: ACETAMINOPHEN 325 MG TABLET PO SCH ×4 (01:05→21:55)
[2016-08-04] MEDS: BENZTROPINE MESYLATE 1 MG TABLET PO SCH ×3 (01:05→17:30)
[2016-08-04] MEDS: BUSPIRONE HCL 10 MG TABLET PO SCH ×2 (01:05→21:55)
[2016-08-04] MEDS: DOCUSATE SODIUM 100 MG CAPSULE PO SCH ×2 (01:05→21:56)
[2016-08-04] MEDS: RISPERIDONE 0.25 MG TABLET PO SCH ×3 (01:05→21:56)
[2016-08-04] MEDS: AMPICILLIN SODIUM IV SCH ×4 (05:13→23:04)
[2016-08-04] MEDS: NORMAL SALINE IV SCH ×4 (05:13→23:04)
[2016-08-04] MEDS: LORAZEPAM 1 MG TABLET PO SCH ×2 (09:42→17:30)
[2016-08-04] MEDS: BISACODYL 5 MG TABEC PO SCH (09:45)
--- NOTE | 2016-08-04 20:20 | PDOC PROGRESS REPORT ---
Subjective Progress Note for:: 08/04/16 Subjective:: Patient is psychotic and she needs to be seen by psychiatry, the UTI is not the etiology of the acute psychosis is manifesting. I spoke to her caregivers in the assisted living facility where she resides they stated that she has been manifesting psychosis for awhile and psychiatrist have made changes to her medication without good results. Physical Exam Vital Signs: Temp Pulse Resp BP Pulse Ox 98.4 F 79 20 109/59 L 100 08/04/16 16:00 08/04/16 16:00 08/04/16 16:00 08/04/16 16:00 08/04/16 16:00 Intake & Output 08/03/16 08/04/16 08/05/16 06:59 06:59 06:59 Intake Total 2388 2333 1288 Balance 2388 2333 1288 Weight 51 kg General appearance: PRESENT: mild distress Eye exam: PRESENT: PERRLA Respiratory exam: PRESENT: clear to auscultation meera Cardiovascular exam: PRESENT: +S1, +S2 Murmur grade: 3 GI/Abdominal exam: PRESENT: soft Neurological exam: PRESENT: alert, CN II-XII grossly intact Results Laboratory Results: 08/01/16 06:40 08/01/16 06:40 Impressions: Chest X-Ray 07/31/16 00:00 IMPRESSION: NO ACUTE RADIOGRAPHIC FINDING IN THE CHEST. Head CT 07/31/16 00:00 IMPRESSION: No acute abnormality in the brain. Assessment & Plan - Diagnosis (1) Enterococcus UTI Is this a current diagnosis for this admission?: YesPlan: Continue IV antibiotics (2) Hypernatremia Is this a current diagnosis for this admission?: Yes (3) Schizophrenia Qualifiers: Schizophrenia type: unspecified Qualified Code(s): F20.9 - Schizophrenia, unspecified Is this a current diagnosis for this admission?: Yes
[2016-08-04] MEDS: HALOPERIDOL LACTATE INJ 5 MG/1 ML VIAL IV PRN (21:53)
[2016-08-04] MEDS: DEXTROSE 5%-1/2 NORMAL SALINE 1,000 ML IV PRN (21:53)
[2016-08-04] MEDS: DIVALPROEX SODIUM 250 MG TAB.SR.24H PO SCH (21:55)
[2016-08-05] MEDS: ACETAMINOPHEN 325 MG TABLET PO SCH ×3 (05:08→22:56)
[2016-08-05] MEDS: AMPICILLIN SODIUM IV SCH ×3 (05:11→18:26)
[2016-08-05] MEDS: NORMAL SALINE IV SCH ×3 (05:11→18:26)
[2016-08-05] MEDS: RISPERIDONE 0.25 MG TABLET PO SCH ×2 (10:09→22:56)
[2016-08-05] MEDS: LORAZEPAM 1 MG TABLET PO SCH ×2 (10:09→18:26)
[2016-08-05] MEDS: BENZTROPINE MESYLATE 1 MG TABLET PO SCH ×2 (10:09→18:26)
[2016-08-05] MEDS: HALOPERIDOL LACTATE INJ 5 MG/1 ML VIAL IV PRN (13:26)
[2016-08-05] MEDS: BUSPIRONE HCL 10 MG TABLET PO SCH (22:56)
[2016-08-05] MEDS: DOCUSATE SODIUM 100 MG CAPSULE PO SCH (22:56)
[2016-08-05] MEDS: DIVALPROEX SODIUM 250 MG TAB.SR.24H PO SCH (22:56)
[2016-08-06] MEDS: NORMAL SALINE IV SCH ×4 (00:38→18:14)
[2016-08-06] MEDS: AMPICILLIN SODIUM IV SCH ×4 (00:38→18:14)
[2016-08-06] MEDS: DEXTROSE 5%-1/2 NORMAL SALINE 1,000 ML IV PRN (00:39)
[2016-08-06] MEDS: ACETAMINOPHEN 325 MG TABLET PO SCH ×3 (06:16→21:03)
[2016-08-06] MEDS: BISACODYL 5 MG TABEC PO SCH (10:36)
[2016-08-06] MEDS: RISPERIDONE 0.25 MG TABLET PO SCH ×2 (10:36→21:03)
[2016-08-06] MEDS: LORAZEPAM 1 MG TABLET PO SCH ×2 (10:36→18:14)
[2016-08-06] MEDS: BENZTROPINE MESYLATE 1 MG TABLET PO SCH ×2 (10:36→18:14)
[2016-08-06 13:38] LABS: ABSOLUTE BASOPHILS # (AUTO) 0.1 10^3/uL (0.0-0.2); ABSOLUTE LYMPHOCYTES (AUTO) 2.2 10^3/uL (0.5-4.7); ABSOLUTE MONOCYTES (AUTO) 1.3 10^3/uL (0.1-1.4); ABSOLUTE NEUT (AUTO) 4.9 10^3/uL (1.7-8.2); BASOPHILS % (AUTO) 0.8 % (0-2); HEMATOCRIT 27.6 % (36.0-47.0); HEMOGLOBIN 9.2 g/dL (12.0-15.5); LYMPHOCYTES % (AUTO) 25.9 % (13-45); MEAN CORPUSCULAR HEMOGLOBIN 27.7 pg (27.0-33.4); MEAN CORPUSCULAR HGB CONC 33.4 g/dL (32.0-36.0); MEAN CORPUSCULAR VOLUME 83 fl (80-97); MONOCYTES % (AUTO) 15.7 % (3-13); RED BLOOD COUNT 3.33 10^6/uL (3.72-5.28); SEGMENTED NEUTROPHILS % (AUTO) 57.6 % (42-78); WHITE BLOOD COUNT 8.6 10^3/uL (4.0-10.5)
[2016-08-06 13:46] LABS: ALANINE AMINOTRANSFERASE 28 U/L (9-52); ALBUMIN 3.7 g/dL (3.5-5.0); ALKALINE PHOSPHATASE 69 U/L (38-126); ANION GAP 13 (5-19); ASPARTATE AMINO TRANSFERASE 13 U/L (14-36); BILIRUBIN,TOTAL 0.7 mg/dL (0.2-1.3); BLOOD UREA NITROGEN 7 mg/dL (7-20); CALCIUM 9.1 mg/dL (8.4-10.2); CARBON DIOXIDE 23 mmol/L (22-30); CHLORIDE 103 mmol/L (98-107); CREATININE RESULT 0.49 mg/dL (0.52-1.25); GLUCOSE 103 mg/dL (75-110); SODIUM 139.3 mmol/L (137-145); TOTAL PROTEIN 6.5 g/dL (6.3-8.2)
[2016-08-06 13:55] LABS: POTASSIUM 2.6 mmol/L (3.6-5.0)
[2016-08-06] MEDS ORDERED: POTASSIUM CHLORIDE 20 MEQ/50 ML RTU IV ONE (14:55)
--- NOTE | 2016-08-06 16:52 | PDOC PROGRESS REPORT ---
Subjective Progress Note for:: 08/05/16 Subjective:: Patient continues to manifest symptoms of psychosis, she has E faecalis UTI but the UTI is not the etiology of her psychosis. She needs to be committed into a psychiatric facility she was seen by a psychiatrist they suggests that she has vascular dementia and that antipsychotics will worsen her symptoms. Physical Exam Vital Signs: Temp Pulse Resp BP Pulse Ox 98.6 F 101 H 16 108/84 97 08/05/16 19:00 08/05/16 19:00 08/05/16 19:00 08/05/16 19:00 08/05/16 19:00 Intake & Output 08/04/16 08/05/16 08/06/16 06:59 06:59 06:59 Intake Total 2333 2388 2275 Balance 2333 2388 2275 Weight 53.2 kg General appearance: PRESENT: mild distress Eye exam: PRESENT: PERRLA Respiratory exam: PRESENT: clear to auscultation meera Cardiovascular exam: PRESENT: +S1, +S2 Murmur grade: 3 GI/Abdominal exam: PRESENT: soft Neurological exam: PRESENT: alert, CN II-XII grossly intact Results Laboratory Results: 08/01/16 06:40 08/01/16 06:40 Impressions: Chest X-Ray 07/31/16 00:00 IMPRESSION: NO ACUTE RADIOGRAPHIC FINDING IN THE CHEST. Head CT 07/31/16 00:00 IMPRESSION: No acute abnormality in the brain. Assessment & Plan - Diagnosis (1) Enterococcus UTI Is this a current diagnosis for this admission?: Yes (2) Hypernatremia Is this a current diagnosis for this admission?: Yes (3) Schizophrenia Qualifiers: Schizophrenia type: unspecified Qualified Code(s): F20.9 - Schizophrenia, unspecified Is this a current diagnosis for this admission?: Yes (4) Acute psychosis Is this a current diagnosis for this admission?: Yes
--- NOTE | 2016-08-06 16:54 | PDOC PROGRESS REPORT ---
Subjective Progress Note for:: 08/06/16 Subjective:: Patient need to be committed/admitted into psychiatric facility, the nursing supervisor final is is making efforts for the placement. She continues to manifest symptoms of psychosis Physical Exam Vital Signs: Temp Pulse Resp BP Pulse Ox 98.4 F 93 18 124/82 99 08/06/16 00:00 08/06/16 07:32 08/06/16 00:00 08/06/16 00:00 08/06/16 00:00 Intake & Output 08/05/16 08/06/16 08/07/16 06:59 06:59 06:59 Intake Total 2388 3413 150 Balance 2388 3413 150 Weight 53.2 kg 54.1 kg General appearance: PRESENT: mild distress Eye exam: PRESENT: PERRLA Respiratory exam: PRESENT: clear to auscultation meera Cardiovascular exam: PRESENT: +S1, +S2 Murmur grade: 3 GI/Abdominal exam: PRESENT: soft Neurological exam: PRESENT: alert Results Laboratory Results: 08/06/16 13:17 08/06/16 13:17 08/06/16 08/06/16 13:17 13:17 WBC 8.6 RBC 3.33 L Hgb 9.2 L Hct 27.6 L MCV 83 MCH 27.7 MCHC 33.4 RDW 13.0 Plt Count 157 Seg Neutrophils % 57.6 Lymphocytes % 25.9 Monocytes % 15.7 H Eosinophils % 0.0 Basophils % 0.8 Absolute Neutrophils 4.9 Absolute Lymphocytes 2.2 Absolute Monocytes 1.3 Absolute Eosinophils 0.0 Absolute Basophils 0.1 Sodium 139.3 Potassium 2.6 L* Chloride 103 Carbon Dioxide 23 Anion Gap 13 BUN 7 Creatinine 0.49 L Est GFR ( Amer) > 60 Est GFR (Non-Af Amer) > 60 Glucose 103 Calcium 9.1 Total Bilirubin 0.7 AST 13 L ALT 28 Alkaline Phosphatase 69 Total Protein 6.5 Albumin 3.7 Impressions: Chest X-Ray 07/31/16 00:00 IMPRESSION: NO ACUTE RADIOGRAPHIC FINDING IN THE CHEST. Head CT 07/31/16 00:00 IMPRESSION: No acute abnormality in the brain. Assessment & Plan - Diagnosis (1) Enterococcus UTI Is this a current diagnosis for this admission?: Yes (2) Hypernatremia Is this a current diagnosis for this admission?: YesPlan: This is resolved (3) Schizophrenia Qualifiers: Schizophrenia type: unspecified Qualified Code(s): F20.9 - Schizophrenia, unspecified Is this a current diagnosis for this admission?: Yes (4) Acute psychosis Is this a current diagnosis for this admission?: YesPlan: Patient need to be committed into a psychiatric facility, (5) Hypokalemia Plan: This be corrected with potassium
[2016-08-06] MEDS ORDERED: POTASSI CL 20 MEQ/50 ML RIDER 20 MEQ/50 ML RTUPB IV ONE (17:15)
[2016-08-06] MEDS: DIVALPROEX SODIUM 250 MG TAB.SR.24H PO SCH (21:03)
[2016-08-06] MEDS: BUSPIRONE HCL 10 MG TABLET PO SCH (21:03)
[2016-08-06] MEDS: DOCUSATE SODIUM 100 MG CAPSULE PO SCH (21:03)
[2016-08-07] MEDS: AMPICILLIN SODIUM IV SCH ×5 (00:50→23:14)
[2016-08-07] MEDS: NORMAL SALINE IV SCH ×5 (00:50→23:14)
[2016-08-07] MEDS: HALOPERIDOL LACTATE INJ 5 MG/1 ML VIAL IV PRN ×3 (04:00→18:10)
[2016-08-07] MEDS: ACETAMINOPHEN 325 MG TABLET PO SCH ×3 (05:14→21:40)
[2016-08-07] MEDS: BENZTROPINE MESYLATE 1 MG TABLET PO SCH ×2 (09:46→17:06)
[2016-08-07] MEDS: LORAZEPAM 1 MG TABLET PO SCH ×2 (09:46→17:06)
[2016-08-07] MEDS: RISPERIDONE 0.25 MG TABLET PO SCH ×2 (09:46→21:40)
[2016-08-07] MEDS: DIVALPROEX SODIUM 250 MG TAB.SR.24H PO SCH (21:40)
[2016-08-07] MEDS: DOCUSATE SODIUM 100 MG CAPSULE PO SCH (21:40)
[2016-08-07] MEDS: BUSPIRONE HCL 10 MG TABLET PO SCH (21:40)
[2016-08-07] MEDS: DEXTROSE 5%-1/2 NORMAL SALINE 1,000 ML IV PRN (23:13)
[2016-08-08] MEDS: ACETAMINOPHEN 325 MG TABLET PO SCH ×3 (05:06→22:45)
[2016-08-08] MEDS: NORMAL SALINE IV SCH ×3 (05:22→17:34)
[2016-08-08] MEDS: AMPICILLIN SODIUM IV SCH ×3 (05:22→17:34)
[2016-08-08] MEDS: LORAZEPAM 1 MG TABLET PO SCH ×2 (09:49→17:34)
[2016-08-08] MEDS: BISACODYL 5 MG TABEC PO SCH (09:49)
[2016-08-08] MEDS: BENZTROPINE MESYLATE 1 MG TABLET PO SCH ×2 (09:49→17:34)
[2016-08-08] MEDS: RISPERIDONE 0.25 MG TABLET PO SCH ×2 (09:49→22:43)
[2016-08-08 13:17] LABS: HEMOGLOBIN 8.4 g/dL (12.0-15.5); HGB HCT DIFFERENCE 0.2; MEAN CORPUSCULAR HEMOGLOBIN 27.9 pg (27.0-33.4); MEAN CORPUSCULAR HGB CONC 33.8 g/dL (32.0-36.0); MEAN CORPUSCULAR VOLUME 83 fl (80-97); RED BLOOD COUNT 3.03 10^6/uL (3.72-5.28); WHITE BLOOD COUNT 6.6 10^3/uL (4.0-10.5)
[2016-08-08 13:42] LABS: BASOPHILS % (MANUAL) 0 % (0-2); EOSINOPHILS % (MANUAL) 0 % (0-6); LYMPHOCYTES % (MANUAL) 33 % (13-45); TOTAL CELLS COUNTED 100
[2016-08-08 13:45] LABS: ANISOCYTOSIS SLIGHT; HYPOCHROMASIA SLIGHT; OVALOCYTES SLIGHT; POIKILOCYTOSIS SLIGHT; TOXIC GRANULATION SLIGHT
[2016-08-08 13:47] LABS: ALANINE AMINOTRANSFERASE 21 U/L (9-52); ALBUMIN 3.2 g/dL (3.5-5.0); ALKALINE PHOSPHATASE 61 U/L (38-126); ANION GAP 12 (5-19); ASPARTATE AMINO TRANSFERASE 13 U/L (14-36); BILIRUBIN,TOTAL 0.5 mg/dL (0.2-1.3); BLOOD UREA NITROGEN 5 mg/dL (7-20); CALCIUM 8.6 mg/dL (8.4-10.2); CARBON DIOXIDE 26 mmol/L (22-30); CHLORIDE 100 mmol/L (98-107); CREATININE RESULT 0.47 mg/dL (0.52-1.25); GLUCOSE 101 mg/dL (75-110); SODIUM 137.8 mmol/L (137-145)
[2016-08-08 13:59] LABS: POTASSIUM 2.7 mmol/L (3.6-5.0)
[2016-08-08] MEDS: POTASSIUM CHLORIDE 20 MEQ/50 ML RTU IV SCH ×2 (15:49→17:59)
--- NOTE | 2016-08-08 20:16 | PDOC PROGRESS REPORT ---
Subjective Progress Note for:: 08/08/16 Subjective:: Patient manifesting symptoms of psychosis she will need inpatient psychiatric care, she was manifesting the symptoms before she was admitted, she is a resident of [facility] , she was transferred from this facility to the emergency room because she was psychotic, she be stated that the food was poisoned and not behavioral was erratic in the emergency room she was admitted on it was assumed that her behavior or change in behavior was a UTI but she was treated successfully with IV antibiotic for the last 5 7 days on she continues to manifest symptoms of psychosis. The serum potassium is low today there is for that is because of the normal saline infusion that she has been receiving because patient has not been eating or drinking the only means of hydration is through the IV fluid ,will be add potassium into the normal saline Physical Exam Vital Signs: Temp Pulse Resp BP Pulse Ox 98.1 F 68 20 100/55 L 95 08/08/16 16:00 08/08/16 16:00 08/08/16 16:00 08/08/16 16:00 08/08/16 16:00 Intake & Output 08/07/16 08/08/16 08/09/16 06:59 06:59 06:59 Intake Total 2503 2121 2353 Output Total 0 Balance 2503 2121 2353 Weight 55.9 kg General appearance: PRESENT: no acute distress Eye exam: PRESENT: PERRLA Respiratory exam: PRESENT: clear to auscultation meera Cardiovascular exam: PRESENT: +S1, +S2 Murmur grade: 3 Results Laboratory Results: 08/08/16 13:01 08/08/16 13:01 08/08/16 08/08/16 13:01 13:01 WBC 6.6 RBC 3.03 L Hgb 8.4 L Hct 25.0 L MCV 83 MCH 27.9 MCHC 33.8 RDW 13.0 Plt Count 132 L Seg Neutrophils % Not Reportable Lymphocytes % Not Reportable Monocytes % Not Reportable Eosinophils % Not Reportable Basophils % Not Reportable Absolute Neutrophils Not Reportable Absolute Lymphocytes Not Reportable Absolute Monocytes Not Reportable Absolute Eosinophils Not Reportable Absolute Basophils Not Reportable Sodium 137.8 Potassium 2.7 L* Chloride 100 Carbon Dioxide 26 Anion Gap 12 BUN 5 L Creatinine 0.47 L Est GFR ( Amer) > 60 Est GFR (Non-Af Amer) > 60 Glucose 101 Calcium 8.6 Total Bilirubin 0.5 AST 13 L ALT 21 Alkaline Phosphatase 61 Total Protein 6.0 L Albumin 3.2 L Impressions: Chest X-Ray 07/31/16 00:00 IMPRESSION: NO ACUTE RADIOGRAPHIC FINDING IN THE CHEST. Head CT 07/31/16 00:00 IMPRESSION: No acute abnormality in the brain. Assessment & Plan - Diagnosis (1) Enterococcus UTI Is this a current diagnosis for this admission?: Yes (2) Hypernatremia Is this a current diagnosis for this admission?: Yes (3) Schizophrenia Qualifiers: Schizophrenia type: unspecified Qualified Code(s): F20.9 - Schizophrenia, unspecified Is this a current diagnosis for this admission?: Yes (4) Acute psychosis Is this a current diagnosis for this admission?: Yes
[2016-08-08] MEDS: DEXTROSE 5%-NORMAL SALINE 1,000 ML with POTASSIUM CHLORIDE 40 MEQ IV PRN ×2 (22:37)
[2016-08-08] MEDS: DIVALPROEX SODIUM 250 MG TAB.SR.24H PO SCH (22:43)
[2016-08-08] MEDS: BUSPIRONE HCL 10 MG TABLET PO SCH (22:45)
[2016-08-08] MEDS: DOCUSATE SODIUM 100 MG CAPSULE PO SCH (22:45)
[2016-08-09] MEDS ORDERED: AMPICILLIN SOD INJ 1 GM VIAL ONE (01:20)
[2016-08-09] MEDS: NORMAL SALINE IV SCH ×2 (01:54→05:49)
[2016-08-09] MEDS: AMPICILLIN SODIUM IV SCH ×2 (01:54→05:49)
[2016-08-09] MEDS: ACETAMINOPHEN 325 MG TABLET PO SCH ×3 (05:53→22:27)
[2016-08-09] MEDS: RISPERIDONE 0.25 MG TABLET PO SCH ×2 (11:54→22:27)
[2016-08-09] MEDS: BENZTROPINE MESYLATE 1 MG TABLET PO SCH ×2 (11:54→17:47)
[2016-08-09] MEDS: DEXTROSE 5%-NORMAL SALINE 1,000 ML with POTASSIUM CHLORIDE 40 MEQ IV PRN ×2 (17:45)
--- NOTE | 2016-08-09 18:57 | PDOC PROGRESS REPORT ---
Subjective Progress Note for:: 08/09/16 Subjective:: Patient is IVC but no placement yet Physical Exam Vital Signs: Temp Pulse Resp BP Pulse Ox 97.3 F 100 16 119/70 100 08/09/16 16:00 08/09/16 16:00 08/09/16 16:00 08/09/16 16:00 08/09/16 16:00 Intake & Output 08/08/16 08/09/16 08/10/16 06:59 06:59 06:59 Intake Total 2121 3428 0 Output Total 0 Balance 2121 3428 0 General appearance: PRESENT: mild distress Eye exam: PRESENT: PERRLA Respiratory exam: PRESENT: clear to auscultation meera Murmur grade: 3 GI/Abdominal exam: PRESENT: soft Neurological exam: PRESENT: alert Results Laboratory Results: 08/08/16 13:01 08/08/16 13:01 Impressions: Chest X-Ray 07/31/16 00:00 IMPRESSION: NO ACUTE RADIOGRAPHIC FINDING IN THE CHEST. Head CT 07/31/16 00:00 IMPRESSION: No acute abnormality in the brain. Assessment & Plan - Diagnosis (1) Enterococcus UTI Is this a current diagnosis for this admission?: Yes (2) Hypernatremia Is this a current diagnosis for this admission?: Yes (3) Schizophrenia Qualifiers: Schizophrenia type: unspecified Qualified Code(s): F20.9 - Schizophrenia, unspecified Is this a current diagnosis for this admission?: Yes (4) Acute psychosis Is this a current diagnosis for this admission?: Yes
[2016-08-09 19:44] LABS: ABSOLUTE BASOPHILS # (AUTO) 0.1 10^3/uL (0.0-0.2); ABSOLUTE LYMPHOCYTES (AUTO) 1.8 10^3/uL (0.5-4.7); ABSOLUTE MONOCYTES (AUTO) 0.9 10^3/uL (0.1-1.4); ABSOLUTE NEUT (AUTO) 4.5 10^3/uL (1.7-8.2); EOSINOPHILS % (AUTO) 0.1 % (0-6); HEMATOCRIT 27.6 % (36.0-47.0); HEMOGLOBIN 9.1 g/dL (12.0-15.5); HGB HCT DIFFERENCE -0.3; LYMPHOCYTES % (AUTO) 24.9 % (13-45); MEAN CORPUSCULAR HEMOGLOBIN 27.7 pg (27.0-33.4); MEAN CORPUSCULAR HGB CONC 33.1 g/dL (32.0-36.0); MEAN CORPUSCULAR VOLUME 84 fl (80-97); MONOCYTES % (AUTO) 12.6 % (3-13); RED CELL DISTRIBUTION WIDTH 13.2 % (11.5-14.0); SEGMENTED NEUTROPHILS % (AUTO) 61.4 % (42-78); WHITE BLOOD COUNT 7.4 10^3/uL (4.0-10.5)
[2016-08-09] MEDS: DIVALPROEX SODIUM 250 MG TAB.SR.24H PO SCH (22:27)
[2016-08-09] MEDS: BUSPIRONE HCL 10 MG TABLET PO SCH (22:27)
[2016-08-09] MEDS: DOCUSATE SODIUM 100 MG CAPSULE PO SCH (22:27)
[2016-08-10] MEDS: ACETAMINOPHEN 325 MG TABLET PO SCH ×3 (05:05→22:27)
[2016-08-10] MEDS: BENZTROPINE MESYLATE 1 MG TABLET PO SCH ×2 (10:22→17:45)
[2016-08-10] MEDS: RISPERIDONE 0.25 MG TABLET PO SCH ×2 (10:22→22:27)
[2016-08-10] MEDS: BISACODYL 5 MG TABEC PO SCH (10:22)
--- NOTE | 2016-08-10 18:30 | PDOC PROGRESS REPORT ---
Subjective Progress Note for:: 08/10/16 Subjective:: Patient remains psychotic, already IVC waiting for placement Physical Exam Vital Signs: Temp Pulse Resp BP Pulse Ox 98.0 F 69 16 137/62 H 100 08/10/16 08:10 08/10/16 08:10 08/10/16 08:10 08/10/16 08:10 08/10/16 08:10 Intake & Output 08/09/16 08/10/16 08/11/16 06:59 06:59 06:59 Intake Total 3428 1930 Balance 3428 1930 Weight 53.3 kg General appearance: PRESENT: no acute distress Respiratory exam: PRESENT: clear to auscultation meera Cardiovascular exam: PRESENT: +S1, +S2 Murmur grade: 3 GI/Abdominal exam: PRESENT: soft Results Laboratory Results: 08/09/16 19:24 08/08/16 13:01 08/09/16 19:24 WBC 7.4 RBC 3.30 L Hgb 9.1 L Hct 27.6 L MCV 84 MCH 27.7 MCHC 33.1 RDW 13.2 Plt Count 160 Seg Neutrophils % 61.4 Lymphocytes % 24.9 Monocytes % 12.6 Eosinophils % 0.1 Basophils % 1.0 Absolute Neutrophils 4.5 Absolute Lymphocytes 1.8 Absolute Monocytes 0.9 Absolute Eosinophils 0.0 Absolute Basophils 0.1 Impressions: Chest X-Ray 07/31/16 00:00 IMPRESSION: NO ACUTE RADIOGRAPHIC FINDING IN THE CHEST. Head CT 07/31/16 00:00 IMPRESSION: No acute abnormality in the brain. Assessment & Plan - Diagnosis (1) Enterococcus UTI Is this a current diagnosis for this admission?: Yes (2) Hypernatremia Is this a current diagnosis for this admission?: Yes (3) Schizophrenia Qualifiers: Schizophrenia type: unspecified Qualified Code(s): F20.9 - Schizophrenia, unspecified Is this a current diagnosis for this admission?: Yes (4) Acute psychosis Is this a current diagnosis for this admission?: Yes
[2016-08-10] MEDS: DOCUSATE SODIUM 100 MG CAPSULE PO SCH (22:27)
[2016-08-10] MEDS: BUSPIRONE HCL 10 MG TABLET PO SCH (22:27)
[2016-08-10] MEDS: DIVALPROEX SODIUM 250 MG TAB.SR.24H PO SCH (22:27)
[2016-08-11] MEDS: DEXTROSE 5%-NORMAL SALINE 1,000 ML with POTASSIUM CHLORIDE 40 MEQ IV PRN ×4 (00:06→15:09)
[2016-08-11] MEDS: ACETAMINOPHEN 325 MG TABLET PO SCH ×3 (06:21→22:56)
[2016-08-11] MEDS: RISPERIDONE 0.25 MG TABLET PO SCH ×2 (10:26→22:56)
[2016-08-11] MEDS: BENZTROPINE MESYLATE 1 MG TABLET PO SCH ×2 (10:26→22:56)
[2016-08-11] MEDS: DIVALPROEX SODIUM 250 MG TAB.SR.24H PO SCH (22:56)
[2016-08-11] MEDS: BUSPIRONE HCL 10 MG TABLET PO SCH (22:56)
[2016-08-11] MEDS: DOCUSATE SODIUM 100 MG CAPSULE PO SCH (22:56)
[2016-08-12] MEDS: ACETAMINOPHEN 325 MG TABLET PO SCH ×3 (05:09→23:53)
[2016-08-12] MEDS: DEXTROSE 5%-NORMAL SALINE 1,000 ML with POTASSIUM CHLORIDE 40 MEQ IV PRN ×2 (05:29)
--- NOTE | 2016-08-12 10:53 | PSYCHOLOGICAL NOTE ---
Psych Note - Psych Note Psych Note: New consult Patient presented to [facility] ED with known history of schizophrenia and bipolar affective disorder with multiple presentations to the emergency room for altered mental status. Records show that she's had worsening mental status in the past in the setting of a UTI. The patient was brought into the emergency room because [facility] Patient has been in [facility] since 07/28/16 with acute psychosis. While patient had a UTI, psychosis continued after treatment. Current presentation is more congruent with dementia. Symptoms have started to show improvement; however, it has been a slow process with some set backs. Currently patient is verbal but difficult to understand. It appears the patient is still experiencing internal stimuli and the verbalization is centered around the psychosis. Patient is showing signs of awareness of others; however unable to differentiate from her hallucinations. Verbalizations is on random topics and words showing disorganized thought process. Currently looking for in-patient treatment; thus far have been unsuccessful due to medical acuity. Diagnosis: Vascular Dementia Based on review of past medical records to include CT scans from [id number], the patient's reaction to benzodiazepines and antipsychotics, and the patient's presentation, evidence indicates Vascular Dementia. Any antipsychotic medication or benzodiazepines will aggravate symptoms. Unspecified Schizophrenia or psychosis per history
--- NOTE | 2016-08-12 11:02 | PSYCHOLOGICAL NOTE ---
Psych Note - Psych Note Psych Note: Check-in Patient presented to [facility] ED with known history of schizophrenia and bipolar affective disorder with multiple presentations to the emergency room for altered mental status. Records show that she's had worsening mental status in the past in the setting of a UTI. The patient was brought into the emergency room because she became [facility] with [facility]. Patient has been in [facility] since 07/28/16 with acute psychosis. While patient had a UTI, psychosis continued after treatment. Current presentation is more congruent with dementia. Symptoms have started to show improvement; however, it has been a slow process with some set backs. Patient is verbal and able answer clinician's questions; however, patient is unable to remain linear and becomes disorganized. Patient was able to state that she used wipes to clean up. When asked if she is hearing voices she states "ya...I hear my own...write that down." When asked if she saw her sister yesterday, she states "no." Patient's volume of voice is louder when talking with clinician and able to answer directly then reverts to lower level speech and disorganized thought process. Currently looking for in-patient treatment; thus far have been unsuccessful due to medical acuity. Diagnosis: Vascular Dementia Based on review of past medical records to include CT scans from [id number], the patient's reaction to benzodiazepines and antipsychotics, and the patient's presentation, evidence indicates Vascular Dementia. Any antipsychotic medication or benzodiazepines will aggravate symptoms. Unspecified Schizophrenia or psychosis per history
[2016-08-12] MEDS: CLONIDINE 0.2 MG/24 HR PATCH.TDWK TD SCH (17:39)
[2016-08-12] MEDS: BENZTROPINE MESYLATE 1 MG TABLET PO SCH ×2 (18:42→18:47)
[2016-08-12] MEDS: BISACODYL 5 MG TABEC PO SCH (18:42)
[2016-08-12] MEDS: RISPERIDONE 0.25 MG TABLET PO SCH ×2 (18:42→23:53)
[2016-08-12] MEDS: PHENYTOIN SODIUM INJ/PF 100 MG/2 ML SDV IM SCH ×2 (18:47→23:53)
--- NOTE | 2016-08-12 21:47 | PDOC PROGRESS REPORT ---
Subjective Progress Note for:: 08/12/16 Subjective:: Patient remains psychotic screening uncontrol behavior she is restrained she was seen by psychiatrist Physical Exam Vital Signs: Temp Pulse Resp BP Pulse Ox 98.2 F 91 17 126/81 H 100 08/11/16 23:51 08/11/16 23:51 08/11/16 23:51 08/11/16 23:51 08/11/16 23:51 Intake & Output 08/11/16 08/12/16 08/13/16 06:59 06:59 06:59 Intake Total 2420 2400 1650 Balance 2420 2400 1650 Weight 50 kg 50.9 kg General appearance: PRESENT: disheveled Eye exam: PRESENT: PERRLA Respiratory exam: PRESENT: clear to auscultation meera Cardiovascular exam: PRESENT: +S1, +S2 Murmur grade: 3 Results Laboratory Results: 08/09/16 19:24 08/08/16 13:01 Impressions: Chest X-Ray 07/31/16 00:00 IMPRESSION: NO ACUTE RADIOGRAPHIC FINDING IN THE CHEST. Head CT 07/31/16 00:00 IMPRESSION: No acute abnormality in the brain. Assessment & Plan - Diagnosis (1) Enterococcus UTI Is this a current diagnosis for this admission?: Yes (2) Hypernatremia Is this a current diagnosis for this admission?: Yes (3) Schizophrenia Qualifiers: Schizophrenia type: unspecified Qualified Code(s): F20.9 - Schizophrenia, unspecified Is this a current diagnosis for this admission?: Yes (4) Acute psychosis Is this a current diagnosis for this admission?: Yes
--- NOTE | 2016-08-12 21:48 | PDOC PROGRESS REPORT ---
Subjective Progress Note for:: 08/11/16 Subjective:: Patient remains psychotic screening uncontrol behavior she is restrained she was seen by psychiatrist Physical Exam Vital Signs: Temp Pulse Resp BP Pulse Ox 98.2 F 91 17 126/81 H 100 08/11/16 23:51 08/11/16 23:51 08/11/16 23:51 08/11/16 23:51 08/11/16 23:51 Intake & Output 08/11/16 08/12/16 08/13/16 06:59 06:59 06:59 Intake Total 2420 2400 1650 Balance 2420 2400 1650 Weight 50 kg 50.9 kg Head exam: PRESENT: atraumatic, normocephalic Eye exam: PRESENT: conjunctiva pink, EOMI, PERRLA Ear exam: PRESENT: normal external ear exam Mouth exam: PRESENT: moist, tongue midline Neck exam: PRESENT: full ROM Cardiovascular exam: PRESENT: RRR, +S1, +S2. ABSENT: rubs, systolic murmur Murmur grade: 3 Pulses: PRESENT: normal dorsalis pedis pul, +2 pedal pulses bilateral Vascular exam: PRESENT: normal capillary refill GI/Abdominal exam: PRESENT: normal bowel sounds, soft Rectal exam: PRESENT: deferred Neurological exam: PRESENT: alert, awake, oriented to person, oriented to place , oriented to time, oriented to situation, CN II-XII grossly intact Psychiatric exam: PRESENT: appropriate affect, normal mood Skin exam: PRESENT: dry, intact, warm Results Laboratory Results: 08/09/16 19:24 08/08/16 13:01 Impressions: Chest X-Ray 07/31/16 00:00 IMPRESSION: NO ACUTE RADIOGRAPHIC FINDING IN THE CHEST. Head CT 07/31/16 00:00 IMPRESSION: No acute abnormality in the brain. Assessment & Plan - Diagnosis (1) Enterococcus UTI Is this a current diagnosis for this admission?: Yes (2) Hypernatremia Is this a current diagnosis for this admission?: Yes (3) Schizophrenia Qualifiers: Schizophrenia type: unspecified Qualified Code(s): F20.9 - Schizophrenia, unspecified Is this a current diagnosis for this admission?: Yes (4) Acute psychosis Is this a current diagnosis for this admission?: Yes
[2016-08-12] MEDS: DIVALPROEX SODIUM 250 MG TAB.SR.24H PO SCH (23:53)
[2016-08-12] MEDS: DOCUSATE SODIUM 100 MG CAPSULE PO SCH (23:53)
[2016-08-12] MEDS: BUSPIRONE HCL 10 MG TABLET PO SCH (23:53)
[2016-08-13] MEDS: ACETAMINOPHEN 325 MG TABLET PO SCH ×3 (05:20→21:38)
[2016-08-13] MEDS: PHENYTOIN SODIUM INJ/PF 100 MG/2 ML SDV IM SCH ×6 (05:20→21:56)
[2016-08-13] MEDS: RISPERIDONE 0.25 MG TABLET PO SCH (10:48)
[2016-08-13] MEDS: BENZTROPINE MESYLATE 1 MG TABLET PO SCH ×2 (10:48→17:52)
--- NOTE | 2016-08-13 12:03 | PDOC PROGRESS REPORT ---
Subjective Progress Note for:: 08/13/16 Subjective:: Patient continue to demonstrate psychotic agitation and remain on four point restraints. Patient have not been able to take Depakote ER, Buspirone or Risperdal for awhile. P.O intake remain a concern. No reported difficulty with breathing. No reported fever. No vomiting. Physical Exam Vital Signs: Temp Pulse Resp BP Pulse Ox 98.2 F 97 21 H 91/62 L 100 08/13/16 07:44 08/13/16 07:44 08/13/16 07:44 08/13/16 07:44 08/13/16 07:44 Intake & Output 08/12/16 08/13/16 08/14/16 06:59 06:59 07:59 Intake Total 2400 1650 Balance 2400 1650 Weight 50.9 kg General appearance: PRESENT: cooperative, severe distress - from psychotic agitation Head exam: PRESENT: atraumatic, normocephalic Eye exam: PRESENT: conjunctiva pink, EOMI, PERRLA. ABSENT: scleral icterus Mouth exam: PRESENT: dry mucosa Teeth exam: PRESENT: edentulous Respiratory exam: PRESENT: clear to auscultation meera Cardiovascular exam: PRESENT: RRR. ABSENT: diastolic murmur, rubs, systolic murmur Murmur grade: 3 GI/Abdominal exam: PRESENT: normal bowel sounds, soft. ABSENT: distended, guarding, mass, organolmegaly, rebound, tenderness Extremities exam: PRESENT: full ROM Neurological exam: PRESENT: awake Focused psych exam: PRESENT: psychomotor agitation, restlessness Skin exam: PRESENT: dry, warm Results Laboratory Results: 08/09/16 19:24 08/08/16 13:01 Impressions: Chest X-Ray 07/31/16 00:00 IMPRESSION: NO ACUTE RADIOGRAPHIC FINDING IN THE CHEST. Head CT 07/31/16 00:00 IMPRESSION: No acute abnormality in the brain. Assessment & Plan - Diagnosis (1) Vascular dementia with behavioral disturbance Is this a current diagnosis for this admission?: YesPlan: See covering physician orders. (2) Acute psychosis Is this a current diagnosis for this admission?: YesPlan: See covering physician orders. (3) Schizophrenia Qualifiers: Schizophrenia type: unspecified Qualified Code(s): F20.9 - Schizophrenia, unspecified Is this a current diagnosis for this admission?: YesPlan: See covering physician orders. (4) Electrolyte abnormality Is this a current diagnosis for this admission?: YesPlan: See covering physician orders. - Time Time Spent with patient: 35 or more minutes Medications reviewed and adjusted accordingly: Yes Anticipated discharge: Other Within: Other - Inpatient Certification Medical Necessity: Need Close Monitoring Due to Risk of Patient Decompensation, Risk of Complication if Not Cared For in Hospital, Other - acute mental health deterioration Post Hospital Care: D/C or Transfer Summary - Plan Summary Plan Summary: See covering physician orders. I did change her Depakote to sprinkle formulary to easy administration and improve compliance. She will be started on 125 mg p.o tid and adjust dose as needed. I will change Risperdal to odt formulation and increase dose to 0.5mg bid. Maintain on four point restrains as per protocol and discontinue as agitation become less risky.
[2016-08-13] MEDS: DIVALPROEX SODIUM 125 MG CAP.SPRINK PO SCH ×2 (13:44→17:52)
[2016-08-13] MEDS: RISPERIDONE 0.5 MG TAB.RAPDIS PO SCH (17:52)
[2016-08-13] MEDS: BUSPIRONE HCL 10 MG TABLET PO SCH (21:38)
[2016-08-13] MEDS: DOCUSATE SODIUM 100 MG CAPSULE PO SCH (22:07)
[2016-08-14] MEDS: ACETAMINOPHEN 325 MG TABLET PO SCH ×2 (06:49→14:02)
[2016-08-14] MEDS: PHENYTOIN SODIUM INJ/PF 100 MG/2 ML SDV IM SCH ×4 (06:49→18:36)
--- NOTE | 2016-08-14 09:29 | PDOC PROGRESS REPORT ---
Subjective Progress Note for:: 08/14/16 Subjective:: Patient responded to medication formulary adjustment. She is currently sleeping. No reported difficulty with breathing. No reported fever. No vomiting. Physical Exam Vital Signs: Temp Pulse Resp BP Pulse Ox 98.0 F 87 20 109/87 H 96 08/13/16 23:55 08/13/16 23:55 08/13/16 23:55 08/13/16 23:55 08/13/16 23:55 Intake & Output 08/13/16 08/14/16 08/15/16 05:59 06:59 06:59 Intake Total Balance General appearance: PRESENT: no acute distress Head exam: PRESENT: atraumatic, normocephalic Eye exam: PRESENT: conjunctiva pink, EOMI, PERRLA. ABSENT: scleral icterus Respiratory exam: PRESENT: clear to auscultation meera Cardiovascular exam: PRESENT: RRR. ABSENT: diastolic murmur, rubs, systolic murmur Murmur grade: 3 GI/Abdominal exam: PRESENT: normal bowel sounds, soft. ABSENT: distended, guarding, mass, organolmegaly, rebound, tenderness Extremities exam: PRESENT: full ROM Focused psych exam: PRESENT: psychomotor agitation - improving, restlessness - improving Skin exam: PRESENT: dry, warm Results Laboratory Results: 08/09/16 19:24 08/08/16 13:01 Impressions: Chest X-Ray 07/31/16 00:00 IMPRESSION: NO ACUTE RADIOGRAPHIC FINDING IN THE CHEST. Head CT 07/31/16 00:00 IMPRESSION: No acute abnormality in the brain. Assessment & Plan - Diagnosis (1) Vascular dementia with behavioral disturbance Is this a current diagnosis for this admission?: YesPlan: See covering physician orders. (2) Acute psychosis Is this a current diagnosis for this admission?: YesPlan: See covering physician orders. (3) Schizophrenia Qualifiers: Schizophrenia type: unspecified Qualified Code(s): F20.9 - Schizophrenia, unspecified Is this a current diagnosis for this admission?: YesPlan: See covering physician orders. (4) Electrolyte abnormality Is this a current diagnosis for this admission?: YesPlan: See covering physician orders. - Time Time Spent with patient: 25-34 minutes Medications reviewed and adjusted accordingly: Yes Anticipated discharge: Other Within: Other - Inpatient Certification Based on my medical assessment, after consideration of the patient's comorbidities, presenting symptoms, or acuity I expect that the services needed warrant INPATIENT care.: Yes I certify that my determination is in accordance with my understanding of Medicare's requirements for reasonable and necessary INPATIENT services [42 CFR 412.3e].: Yes Medical Necessity: Need Close Monitoring Due to Risk of Patient Decompensation, Risk of Complication if Not Cared For in Hospital Post Hospital Care: D/C or Transfer Summary - Plan Summary Plan Summary: See covering attending physician orders.
[2016-08-14] MEDS: DIVALPROEX SODIUM 125 MG CAP.SPRINK PO SCH ×3 (10:31→18:36)
[2016-08-14] MEDS: RISPERIDONE 0.5 MG TAB.RAPDIS PO SCH ×2 (10:31→18:36)
[2016-08-14] MEDS: BISACODYL 5 MG TABEC PO SCH (10:31)
[2016-08-14] MEDS: BENZTROPINE MESYLATE 1 MG TABLET PO SCH ×2 (10:31→18:36)
[2016-08-14 11:12] LABS: ABSOLUTE BASOPHILS # (AUTO) 0.1 10^3/uL (0.0-0.2); ABSOLUTE LYMPHOCYTES (AUTO) 1.9 10^3/uL (0.5-4.7); BASOPHILS % (AUTO) 1.5 % (0-2); EOSINOPHILS % (AUTO) 0.1 % (0-6); HEMOGLOBIN 10.7 g/dL (12.0-15.5); HGB HCT DIFFERENCE -0.9; LYMPHOCYTES % (AUTO) 20.8 % (13-45); MEAN CORPUSCULAR HEMOGLOBIN 27.2 pg (27.0-33.4); MEAN CORPUSCULAR HGB CONC 32.5 g/dL (32.0-36.0); MEAN CORPUSCULAR VOLUME 84 fl (80-97); MONOCYTES % (AUTO) 11.5 % (3-13); RED BLOOD COUNT 3.95 10^6/uL (3.72-5.28); RED CELL DISTRIBUTION WIDTH 13.4 % (11.5-14.0); SEGMENTED NEUTROPHILS % (AUTO) 66.1 % (42-78); WHITE BLOOD COUNT 9.1 10^3/uL (4.0-10.5)
[2016-08-14 11:20] LABS: ALANINE AMINOTRANSFERASE 26 U/L (9-52); ALBUMIN 3.9 g/dL (3.5-5.0); ALKALINE PHOSPHATASE 88 U/L (38-126); ANION GAP 13 (5-19); ASPARTATE AMINO TRANSFERASE 21 U/L (14-36); BILIRUBIN,TOTAL 0.6 mg/dL (0.2-1.3); BLOOD UREA NITROGEN 17 mg/dL (7-20); CALCIUM 9.6 mg/dL (8.4-10.2); CARBON DIOXIDE 28 mmol/L (22-30); CHLORIDE 102 mmol/L (98-107); CREATININE RESULT 0.41 mg/dL (0.52-1.25); GLUCOSE 106 mg/dL (75-110); POTASSIUM 3.8 mmol/L (3.6-5.0); SODIUM 142.8 mmol/L (137-145); TOTAL PROTEIN 7.3 g/dL (6.3-8.2)
[2016-08-15] MEDS: BUSPIRONE HCL 10 MG TABLET PO SCH ×2 (00:16→23:22)
[2016-08-15] MEDS: DOCUSATE SODIUM 100 MG CAPSULE PO SCH ×2 (00:16→23:22)
[2016-08-15] MEDS: ACETAMINOPHEN 325 MG TABLET PO SCH ×4 (00:16→23:22)
[2016-08-15] MEDS: PHENYTOIN SODIUM INJ/PF 100 MG/2 ML SDV IM SCH ×6 (01:54→17:52)
[2016-08-15] MEDS: BENZTROPINE MESYLATE 1 MG TABLET PO SCH ×2 (12:15→17:52)
[2016-08-15] MEDS: DIVALPROEX SODIUM 125 MG CAP.SPRINK PO SCH ×3 (12:15→17:52)
--- NOTE | 2016-08-15 12:45 | PSYCHOLOGICAL NOTE ---
Psych Note - Psych Note Psych Note: Attempted to consult patient who is a 60 year old female admitted to [facility]. Patient today is unable to engage in conversation, by tracking topic, etc. Patient is observed moving around in her bed, where she is placed in 4pt soft restraints for her safety and mumbling inaudibly to herself. Patient does not respond to simple directives or questions. Reviewed patient's record to assess for medication compliance. Patient continues to refuse PO intake, to include some of her medications. Patient has been referred to the following psychiatric facilities with the following results: [facility]-denied by admissions due to medical (Dementia etiology) [facility]-denied. Note, this facility is specific for Dementia patients; however, requires patient to be age 65+ [facility]-denied. Note, this facility is specific for Dementia patients; however, requires patient to be age 65+ [facility]-Under review Communicated concerns with DC production control plannerBONILLA. Discussed patient's overall dementia (medical) presentation and that this is likely her new baseline in regards to needs for higher level of care. NM prompted clinician so speak with MD. Consulted with Dr. Alvarado in regards to the care and management of this patient. Will contact MD once disposition and received from [place]. Will track.
[2016-08-15] MEDS: RISPERIDONE 0.5 MG TAB.RAPDIS PO SCH ×2 (13:37→17:52)
--- NOTE | 2016-08-15 18:48 | PDOC PROGRESS REPORT ---
Subjective Progress Note for:: 08/15/16 Subjective:: Patient still in 4 point restraint, the psychiatrist stated she has vascular dementia, I am not aware that patient had a stroke in the past I request MRI of the brain Physical Exam Vital Signs: Temp Pulse Resp BP Pulse Ox 97.2 F 108 H 24 H 125/68 89 L 08/15/16 08:00 08/15/16 11:33 08/15/16 08:00 08/15/16 11:33 08/15/16 11:33 Intake & Output 08/14/16 08/15/16 08/16/16 06:59 06:59 06:59 Intake Total 250 5 Output Total 2 Balance 250 3 General appearance: PRESENT: no acute distress Eye exam: PRESENT: PERRLA Cardiovascular exam: PRESENT: +S1 Murmur grade: 3 Neurological exam: PRESENT: alert Results Laboratory Results: 08/14/16 10:37 08/14/16 10:37 Impressions: Chest X-Ray 07/31/16 00:00 IMPRESSION: NO ACUTE RADIOGRAPHIC FINDING IN THE CHEST. Head CT 07/31/16 00:00 IMPRESSION: No acute abnormality in the brain. Assessment & Plan - Diagnosis (1) Enterococcus UTI Is this a current diagnosis for this admission?: Yes (2) Schizophrenia Qualifiers: Schizophrenia type: unspecified Qualified Code(s): F20.9 - Schizophrenia, unspecified Is this a current diagnosis for this admission?: Yes (3) Acute psychosis Is this a current diagnosis for this admission?: Yes
[2016-08-15] MEDS ORDERED: LORAZEPAM INJ 2 MG/1 ML VIAL IV ONE (20:15)
[2016-08-16] MEDS: PHENYTOIN SODIUM INJ/PF 100 MG/2 ML SDV IM SCH ×7 (00:07→22:07)
[2016-08-16] MEDS: ACETAMINOPHEN 325 MG TABLET PO SCH ×3 (05:52→21:52)
[2016-08-16] MEDS: RISPERIDONE 0.5 MG TAB.RAPDIS PO SCH ×2 (11:10→17:41)
[2016-08-16] MEDS: BENZTROPINE MESYLATE 1 MG TABLET PO SCH ×2 (11:10→17:41)
[2016-08-16] MEDS: BISACODYL 5 MG TABEC PO SCH (11:11)
[2016-08-16] MEDS: DIVALPROEX SODIUM 125 MG CAP.SPRINK PO SCH ×3 (11:11→17:41)
--- NOTE | 2016-08-16 19:26 | PDOC PROGRESS REPORT ---
Subjective Progress Note for:: 08/23/16 Subjective:: MRI brain was ordered yesterday, but it was not done because of restlessness and unable to stay still. She was seen by nutrition on NG tube placement was recommended patient has not had any adequate nutrition since being in the hospital. She continues to manifest psychotic symptoms. It is and will be a challenge to keep the NG tube because patient is very restless. She is presently in 4 points restraint Physical Exam Vital Signs: Temp Pulse Resp BP Pulse Ox 98.8 F 95 24 H 111/55 L 97 08/16/16 16:00 08/16/16 16:00 08/16/16 16:00 08/16/16 16:00 08/16/16 16:00 Intake & Output 08/15/16 08/16/16 08/17/16 06:59 06:59 06:59 Intake Total 250 11 703 Output Total 4 Balance 250 7 703 Weight 46.7 kg Head exam: PRESENT: normocephalic Eye exam: PRESENT: PERRLA Respiratory exam: PRESENT: clear to auscultation meera Cardiovascular exam: PRESENT: +S1, +S2 Murmur grade: 3 GI/Abdominal exam: PRESENT: soft Neurological exam: PRESENT: alert Results Laboratory Results: 08/14/16 10:37 08/14/16 10:37 Impressions: Chest X-Ray 07/31/16 00:00 IMPRESSION: NO ACUTE RADIOGRAPHIC FINDING IN THE CHEST. Head CT 07/31/16 00:00 IMPRESSION: No acute abnormality in the brain. Assessment & Plan - Diagnosis (1) Enterococcus UTI Is this a current diagnosis for this admission?: Yes (2) Schizophrenia Qualifiers: Schizophrenia type: unspecified Qualified Code(s): F20.9 - Schizophrenia, unspecified Is this a current diagnosis for this admission?: YesPlan: Nasogastric tube inserted for purposes of nutrition (3) Acute psychosis Is this a current diagnosis for this admission?: Yes (4) Hypokalemia Is this a current diagnosis for this admission?: Yes
[2016-08-16] MEDS: BUSPIRONE HCL 10 MG TABLET PO SCH (21:52)
[2016-08-16] MEDS: DOCUSATE SODIUM 100 MG CAPSULE PO SCH (21:52)
[2016-08-17] MEDS: PHENYTOIN SODIUM INJ/PF 100 MG/2 ML SDV IM SCH ×6 (02:30→22:39)
[2016-08-17] MEDS: ACETAMINOPHEN 325 MG TABLET PO SCH ×3 (06:47→22:19)
[2016-08-17] MEDS: BENZTROPINE MESYLATE 1 MG TABLET PO SCH ×2 (10:13→18:37)
[2016-08-17] MEDS: DIVALPROEX SODIUM 125 MG CAP.SPRINK PO SCH ×3 (10:13→18:40)
[2016-08-17] MEDS: RISPERIDONE 0.5 MG TAB.RAPDIS PO SCH ×2 (10:14→18:37)
--- NOTE | 2016-08-17 12:12 | PSYCHOLOGICAL NOTE ---
Psych Note - Psych Note Psych Note: Review: Reviewed Patient's chart dating back to 2010. Patient has a reported positive history for Schizophrenia according to records. A head CT scan from revealed perivascular space in the lateral right basal ganglia vs old lacunar infarct. Head CT from 03/20/2015 revealed prominent ventricles, low area density in the white matter due to chronic microvascular changes and mild age-related involutional changes in the extraaxial spaces. Subsequent scans are consistent with previous scans. Review of Patient's most current stay reveals extreme restlessness, response to auditory / visual hallucinations, impaired speech, altered mental status, refusal to eat or take oral medications intermittently, and requirement of 4-point soft restraints Multiple psychiatric evaluations and medication recommendations have been completed, but Patient continues to refuse oral intake. Psychiatric consultation reveals attempts for psychiatric placement but denial secondary to acuity and "medical" instability. Collateral information gained from family reveals that Patient's current presentation is significantly different than her typical baseline, and Patient had not been taking medications for her mental health for several years fairly successfully. Given the information reviewed and considered, Patient's symptomatology and current presentation is most consistent with vascular dementia. Head CT's revealed neurovascular processes impacting the white matter, and the ongoing hallucinations, impaired speech, restlessness and refusal to eat suggest subcortical involvement. Her speech is observed to be nonsensical in terms of formulation of words vs. disorganized speech. Schizophrenia would evidence disorganized speech, hallucinations, avolition, diminished emotional expression , and / or grossly disorganized behavior. Major Neurocognitive Vascular Disorder disorder with behavioral disturbance is characterized by others indicating a substantial decline incognitive function (i.e.daughter), substantial impairment in cognitive performance, inability to perform activities of daily living, cognitive disturbance accompanied by clinically significant behavioral disturbance (i.e. psychotic symptoms, mood disturbance, agitation, etc.), full dependence on others for activities of daily living ( severe), evidence of cerebrovascular disease such as neuroimaging (cerebral atophy, prominent ventricles, subcortical white matter microvascular ischemic disease, perivascular space in the lateral right basal ganglia vs old lacunar infarct (more likely) and medical diseases such as hypertension, diabetes, hyperlipidemia , decline in complex attention, processing speed, and frontal- executive function. Consultation with Neuropsychiatrist: Patient's case was staffed with [facility] contracted Neuropsychiatrist and he indicated that given the Patient's behavior and cognitive status significantly declined following the administration of antipsychotic and benzodiazepine medication, the above listed patient engaged behaviors, and medical history, the Patient is most likely experiencing a Major Neurocognitive Vascular Disorder with Behavioral Disturbance (i.e. Vascular Dementia). He stated since the Patient is refusing oral intake including medications and remains agitated, the provision of psychotropic medications will not be helpful and at this juncture, cannot be administered since the prescribed medications (i.e. Buspar, Depakote, Risperdal) are not supplied in IM form. He related that until the Patient begins to receive nutrition, she is unlikely to cognitively clear enough to consent to medical treatment. He stated the Patient's case is not considered psychiatric in nature at this time, as Dementia is a medical diagnosis requiring medical intervention in this particular case. In summary, Patient is not appropriate for inpatient psychiatric care as her presentation is consistent with Vascular Dementia, and this time, requiring a higher level of residential care such as a SNF. She is also felt to be in need of a guardian to make decisions on her behalf for medical, legal, financial, and personal matters. Patient has been denied from psychiatric facilities due to "medical" acuity, thus, closing the door on that option. As stated, psychiatric inpatient is not considered appropriate for this Patient given the medical nature and course of her illness. Psychotropic medications at this juncture, given her refusal for oral intake, are not likely to be helpful in stabilizing the Patient. Antipsychotic and Benzodiazepine medications are considered contraindicated for her condition and felt to place her at greater risk for behavioral dysregulation. A brain MRI is supported (Dr. Gerardo deleon has one ordered) if Patient is able to remain still enough for such process. It may be helpful to seek input from neurology given the neurodegenerative process occuring within her brain and subsequent behaviors as a result. Behavioral Health services are closing this consultation due to the medical nature of Patient's condition, but open to re-consult should the Patient make improvements in her current presentation. 1. 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
--- NOTE | 2016-08-17 15:46 | PSYCHOLOGICAL NOTE ---
Psych Note - Psych Note Psych Note: Check-in Patient presented to [facility] ED with known history of schizophrenia and bipolar affective disorder with multiple presentations to the emergency room for altered mental status. Records show that she's had worsening mental status in the past in the setting of a UTI. The patient was brought into the emergency room because she became [facility] with [facility]. Patient has been in [facility] since 07/28/16 with acute psychosis. While patient had a UTI, psychosis continued after treatment. Current presentation is more congruent with dementia. Symptoms have started to show improvement; however, it has been a slow process with some set backs. Patient's sister and daughter are visiting with patient. Patient smiled at clinician and said hi. When asked if the patient remembered clinician, patient nodded her head. Patient then said "hair" "like." Clinician notes that clinician just got a hair cut of about 8 inches the previous day. Clinician thanked patient. Patient's sister stated that she was able to get the patient to eat a little bit of apple sauce, but not much. Patient also drank some pepsi. Patient appeared to be more grounded with family around and not as agitated but is still restrained and moving around. Currently looking for in-patient treatment; thus far have been unsuccessful due to medical acuity. Diagnosis: Vascular Dementia Based on review of past medical records to include CT scans from [id number], the patient's reaction to benzodiazepines and antipsychotics, and the patient's presentation, evidence indicates Vascular Dementia. Any antipsychotic medication or benzodiazepines will aggravate symptoms. Unspecified Schizophrenia or psychosis per history
--- NOTE | 2016-08-17 17:04 | PDOC PROGRESS REPORT ---
Subjective Progress Note for:: 08/24/16 Subjective:: I spoke to the psychologist and she insisted that patient have vascular dementia on she also stated that patient is not appropriate for inpatient psychiatric care, patient continues to refuse food and water and she has been requiring restrains, unfortunately MRI of the brain could not be done because of restlessness and increased agitation. Physical Exam Vital Signs: Temp Pulse Resp BP Pulse Ox 98.7 F 86 20 118/48 L 99 08/17/16 15:46 08/17/16 15:46 08/16/16 23:48 08/17/16 15:46 08/16/16 23:48 Intake & Output 08/16/16 08/17/16 08/18/16 06:59 06:59 06:59 Intake Total 11 703 Output Total 4 1 Balance 7 702 Weight 46.7 kg 46.5 kg General appearance: PRESENT: mild distress Eye exam: PRESENT: PERRLA Respiratory exam: PRESENT: clear to auscultation meera Cardiovascular exam: PRESENT: +S1, +S2 Murmur grade: 3 GI/Abdominal exam: PRESENT: soft Neurological exam: PRESENT: alert Results Laboratory Results: 08/14/16 10:37 08/14/16 10:37 Impressions: Chest X-Ray 07/31/16 00:00 IMPRESSION: NO ACUTE RADIOGRAPHIC FINDING IN THE CHEST. Head CT 07/31/16 00:00 IMPRESSION: No acute abnormality in the brain. Assessment & Plan - Diagnosis (1) Enterococcus UTI Is this a current diagnosis for this admission?: Yes (2) Schizophrenia Qualifiers: Schizophrenia type: unspecified Qualified Code(s): F20.9 - Schizophrenia, unspecified Is this a current diagnosis for this admission?: Yes (3) Acute psychosis Is this a current diagnosis for this admission?: Yes (4) Hypokalemia Is this a current diagnosis for this admission?: Yes
[2016-08-17] MEDS: BUSPIRONE HCL 10 MG TABLET PO SCH (22:19)
[2016-08-17] MEDS: DOCUSATE SODIUM 100 MG CAPSULE PO SCH (22:19)
[2016-08-18] MEDS: PHENYTOIN SODIUM INJ/PF 100 MG/2 ML SDV IM SCH ×6 (02:34→23:52)
[2016-08-18] MEDS: ACETAMINOPHEN 325 MG TABLET PO SCH ×3 (06:45→23:55)
[2016-08-18] MEDS: RISPERIDONE 0.5 MG TAB.RAPDIS PO SCH ×2 (09:54→17:14)
[2016-08-18] MEDS: BENZTROPINE MESYLATE 1 MG TABLET PO SCH ×2 (09:54→17:14)
[2016-08-18] MEDS: BISACODYL 5 MG TABEC PO SCH (09:54)
[2016-08-18] MEDS: DIVALPROEX SODIUM 125 MG CAP.SPRINK PO SCH ×3 (09:54→17:14)
--- NOTE | 2016-08-18 19:13 | PDOC PROGRESS REPORT ---
Subjective Progress Note for:: 08/18/16 Subjective:: Patient is very calm today she is off restraints she is eating and drinking appropriately very minimal agitation Physical Exam Vital Signs: Temp Pulse Resp BP Pulse Ox 98.2 F 98 20 121/69 98 08/18/16 16:00 08/18/16 16:00 08/18/16 16:00 08/18/16 16:00 08/18/16 16:00 Intake & Output 08/17/16 08/18/16 08/19/16 06:59 06:59 06:59 Intake Total 703 777 673 Output Total 1 1 Balance 702 776 673 Weight 46.5 kg 46 kg General appearance: PRESENT: no acute distress Eye exam: PRESENT: PERRLA Respiratory exam: PRESENT: clear to auscultation meera Cardiovascular exam: PRESENT: +S1, +S2 Murmur grade: 3 GI/Abdominal exam: PRESENT: soft Neurological exam: PRESENT: alert Results Laboratory Results: 08/14/16 10:37 08/14/16 10:37 Impressions: Chest X-Ray 07/31/16 00:00 IMPRESSION: NO ACUTE RADIOGRAPHIC FINDING IN THE CHEST. Head CT 07/31/16 00:00 IMPRESSION: No acute abnormality in the brain. Assessment & Plan - Diagnosis (1) Enterococcus UTI Is this a current diagnosis for this admission?: YesPlan: She will need to be placed in the care home (2) Schizophrenia Qualifiers: Schizophrenia type: unspecified Qualified Code(s): F20.9 - Schizophrenia, unspecified Is this a current diagnosis for this admission?: Yes (3) Acute psychosis Is this a current diagnosis for this admission?: Yes (4) Hypokalemia Is this a current diagnosis for this admission?: Yes
[2016-08-18] MEDS: BUSPIRONE HCL 10 MG TABLET PO SCH (23:55)
[2016-08-18] MEDS: DOCUSATE SODIUM 100 MG CAPSULE PO SCH (23:55)
[2016-08-19] MEDS: PHENYTOIN SODIUM INJ/PF 100 MG/2 ML SDV IM SCH ×6 (03:02→22:58)
[2016-08-19] MEDS: ACETAMINOPHEN 325 MG TABLET PO SCH ×3 (05:52→22:58)
[2016-08-19] MEDS: RISPERIDONE 0.5 MG TAB.RAPDIS PO SCH ×2 (09:46→17:05)
[2016-08-19] MEDS: BENZTROPINE MESYLATE 1 MG TABLET PO SCH ×2 (09:46→17:05)
[2016-08-19] MEDS: DIVALPROEX SODIUM 125 MG CAP.SPRINK PO SCH ×3 (09:47→17:05)
[2016-08-19] MEDS: CLONIDINE 0.2 MG/24 HR PATCH.TDWK TD SCH (17:05)
[2016-08-19] MEDS: BUSPIRONE HCL 10 MG TABLET PO SCH (22:58)
[2016-08-19] MEDS: DOCUSATE SODIUM 100 MG CAPSULE PO SCH (22:58)
[2016-08-20] MEDS: PHENYTOIN SODIUM INJ/PF 100 MG/2 ML SDV IM SCH ×4 (02:28→15:37)
[2016-08-20] MEDS: ACETAMINOPHEN 325 MG TABLET PO SCH ×3 (06:31→21:37)
[2016-08-20] MEDS: RISPERIDONE 0.5 MG TAB.RAPDIS PO SCH ×2 (11:04→17:25)
[2016-08-20] MEDS: DIVALPROEX SODIUM 125 MG CAP.SPRINK PO SCH ×3 (11:04→17:25)
[2016-08-20] MEDS: BENZTROPINE MESYLATE 1 MG TABLET PO SCH ×2 (11:04→17:25)
[2016-08-20] MEDS: BISACODYL 5 MG TABEC PO SCH (11:04)
[2016-08-20] MEDS ORDERED: CLINDAMYCIN HCL 150 MG CAPSULE PO ONE (16:30)
[2016-08-20 16:34] LABS: HEMATOCRIT 33.8 % (36.0-47.0); HEMOGLOBIN 10.7 g/dL (12.0-15.5); HGB HCT DIFFERENCE -1.7; MEAN CORPUSCULAR HGB CONC 31.5 g/dL (32.0-36.0); MEAN CORPUSCULAR VOLUME 86 fl (80-97); RED BLOOD COUNT 3.95 10^6/uL (3.72-5.28); WHITE BLOOD COUNT 16.2 10^3/uL (4.0-10.5)
[2016-08-20 16:42] LABS: PROTHROMBIN TIME 13.1 SEC (11.4-15.4)
[2016-08-20 16:43] LABS: PARTIAL THROMBOPLASTIN TIME 30.4 SEC (23.5-35.8)
[2016-08-20 16:52] LABS: CREATININE RESULT 0.54 mg/dL (0.52-1.25)
[2016-08-20] MEDS ORDERED: ENOXAPARIN SODIUM INJ 40 MG/0.4 ML DISP.SYRIN SUBCUT ONE (17:00)
[2016-08-20] MEDS ORDERED: LEVETIRACETAM 500 MG TABLET PO ONE (17:00)
--- NOTE | 2016-08-20 17:43 | PDOC PROGRESS REPORT ---
Subjective Progress Note for:: 08/19/16 Subjective:: Patient was seen by the bedside, no new complaints today, she is not very calm and she is eating and drinking for the first time in many days on she is very cooperative taking the medication hopefully she could be discharged to a care home home next week Physical Exam Vital Signs: Temp Pulse Resp BP Pulse Ox 97.9 F 90 16 103/83 99 08/18/16 23:42 08/18/16 23:42 08/18/16 23:42 08/18/16 23:42 08/18/16 23:42 Intake & Output 08/18/16 08/19/16 08/20/16 06:59 06:59 06:59 Intake Total 777 1749 100 Output Total 1 Balance 776 1749 100 Weight 46 kg 46 kg General appearance: PRESENT: no acute distress Eye exam: PRESENT: PERRLA Respiratory exam: PRESENT: clear to auscultation meera Cardiovascular exam: PRESENT: +S1, +S2 Murmur grade: 3 Neurological exam: PRESENT: alert Results Laboratory Results: 08/14/16 10:37 08/14/16 10:37 Impressions: Chest X-Ray 07/31/16 00:00 IMPRESSION: NO ACUTE RADIOGRAPHIC FINDING IN THE CHEST. Head CT 07/31/16 00:00 IMPRESSION: No acute abnormality in the brain. Assessment & Plan - Diagnosis (1) Enterococcus UTI Is this a current diagnosis for this admission?: Yes (2) Schizophrenia Qualifiers: Schizophrenia type: unspecified Qualified Code(s): F20.9 - Schizophrenia, unspecified Is this a current diagnosis for this admission?: Yes (3) Acute psychosis Is this a current diagnosis for this admission?: Yes (4) Hypokalemia Is this a current diagnosis for this admission?: Yes
--- NOTE | 2016-08-20 17:46 | PDOC PROGRESS REPORT ---
Subjective Progress Note for:: 08/20/16 Subjective:: She was seen by the bedside, she has scattered pustules involving the upper extremities and the torso, there is associated leukocytosis, antibiotic will be added to the regimen Physical Exam Vital Signs: Temp Pulse Resp BP Pulse Ox 97.9 F 90 16 103/83 99 08/18/16 23:42 08/18/16 23:42 08/18/16 23:42 08/18/16 23:42 08/18/16 23:42 Intake & Output 08/19/16 08/20/16 08/21/16 06:59 06:59 06:59 Intake Total 1749 100 480 Balance 1749 100 480 Weight 46 kg General appearance: PRESENT: no acute distress Eye exam: PRESENT: PERRLA Respiratory exam: PRESENT: clear to auscultation meera Cardiovascular exam: PRESENT: +S1, +S2 Murmur grade: 3 GI/Abdominal exam: PRESENT: soft Neurological exam: PRESENT: alert Results Laboratory Results: 08/20/16 16:24 08/20/16 16:24 08/20/16 08/20/16 16:24 16:24 WBC 16.2 H RBC 3.95 Hgb 10.7 L Hct 33.8 L MCV 86 MCH 27.0 MCHC 31.5 L RDW 14.0 Plt Count 240 Creatinine 0.54 Est GFR ( Amer) > 60 Est GFR (Non-Af Amer) > 60 Impressions: Chest X-Ray 07/31/16 00:00 IMPRESSION: NO ACUTE RADIOGRAPHIC FINDING IN THE CHEST. Head CT 07/31/16 00:00 IMPRESSION: No acute abnormality in the brain. Assessment & Plan - Diagnosis (1) Enterococcus UTI Is this a current diagnosis for this admission?: Yes (2) Schizophrenia Qualifiers: Schizophrenia type: unspecified Qualified Code(s): F20.9 - Schizophrenia, unspecified Is this a current diagnosis for this admission?: Yes (3) Acute psychosis Is this a current diagnosis for this admission?: Yes (4) Hypokalemia Is this a current diagnosis for this admission?: Yes (5) Pustule Is this a current diagnosis for this admission?: YesPlan: She has scattered pustules, most likely from MRSA, she will be treated with p.o. clindamycin
[2016-08-20 18:10] LABS: ALANINE AMINOTRANSFERASE 31 U/L (9-52); ALBUMIN 3.4 g/dL (3.5-5.0); ALKALINE PHOSPHATASE 89 U/L (38-126); ASPARTATE AMINO TRANSFERASE 32 U/L (14-36); BILIRUBIN,TOTAL 0.3 mg/dL (0.2-1.3); BLOOD UREA NITROGEN 19 mg/dL (7-20); CALCIUM 8.8 mg/dL (8.4-10.2); CARBON DIOXIDE 25 mmol/L (22-30); CHLORIDE 97 mmol/L (98-107); GLUCOSE 191 mg/dL (75-110); POTASSIUM 3.3 mmol/L (3.6-5.0); TOTAL PROTEIN 6.9 g/dL (6.3-8.2)
[2016-08-20 18:13] LABS: CREATININE RESULT 0.54 mg/dL (0.52-1.25)
[2016-08-20 18:20] LABS: ANION GAP 19 (5-19); SODIUM 141.1 mmol/L (137-145)
[2016-08-20] MEDS: BUSPIRONE HCL 10 MG TABLET PO SCH (21:37)
[2016-08-20] MEDS: DOCUSATE SODIUM 100 MG CAPSULE PO SCH (21:37)
[2016-08-20] MEDS: CLINDAMYCIN HCL 150 MG CAPSULE PO SCH (21:38)
[2016-08-21] MEDS: ACETAMINOPHEN 325 MG TABLET PO SCH ×3 (05:12→22:14)
[2016-08-21] MEDS: LEVETIRACETAM 500 MG TABLET PO SCH ×2 (05:13→17:58)
[2016-08-21] MEDS: CLINDAMYCIN HCL 150 MG CAPSULE PO SCH ×3 (05:15→22:14)
[2016-08-21] MEDS: ENOXAPARIN SODIUM INJ 40 MG/0.4 ML DISP.SYRIN SUBCUT SCH (08:32)
[2016-08-21] MEDS: RISPERIDONE 0.5 MG TAB.RAPDIS PO SCH ×2 (12:07→17:58)
[2016-08-21] MEDS: BENZTROPINE MESYLATE 1 MG TABLET PO SCH ×2 (12:07→17:57)
[2016-08-21] MEDS: DIVALPROEX SODIUM 125 MG CAP.SPRINK PO SCH ×3 (12:07→17:58)
--- NOTE | 2016-08-21 17:35 | PDOC PROGRESS REPORT ---
Subjective Progress Note for:: 08/21/16 Subjective:: She was seen by the bedside, she has scattered pustules involving the upper extremities and the torso, there is associated leukocytosis, antibiotic will be added to the regimen Physical Exam Vital Signs: Temp Pulse Resp BP Pulse Ox 97.3 F 90 17 135/74 H 99 08/21/16 15:02 08/21/16 15:02 08/21/16 15:02 08/21/16 15:02 08/21/16 15:02 Intake & Output 08/20/16 08/21/16 08/22/16 06:59 06:59 06:59 Intake Total 100 490 480 Output Total 1 Balance 100 489 480 General appearance: PRESENT: no acute distress Eye exam: PRESENT: PERRLA Respiratory exam: PRESENT: clear to auscultation meera Cardiovascular exam: PRESENT: +S1, +S2 Murmur grade: 3 GI/Abdominal exam: PRESENT: soft Results Laboratory Results: 08/20/16 16:24 08/20/16 16:24 08/20/16 16:24 Sodium 141.1 Potassium 3.3 L Chloride 97 L Carbon Dioxide 25 Anion Gap 19 BUN 19 Creatinine 0.54 Est GFR ( Amer) > 60 Est GFR (Non-Af Amer) > 60 Glucose 191 H Calcium 8.8 Total Bilirubin 0.3 AST 32 ALT 31 Alkaline Phosphatase 89 Total Protein 6.9 Albumin 3.4 L Impressions: Chest X-Ray 07/31/16 00:00 IMPRESSION: NO ACUTE RADIOGRAPHIC FINDING IN THE CHEST. Head CT 07/31/16 00:00 IMPRESSION: No acute abnormality in the brain. Assessment & Plan - Diagnosis (1) Enterococcus UTI Is this a current diagnosis for this admission?: Yes (2) Schizophrenia Qualifiers: Schizophrenia type: unspecified Qualified Code(s): F20.9 - Schizophrenia, unspecified Is this a current diagnosis for this admission?: Yes (3) Acute psychosis Is this a current diagnosis for this admission?: Yes (4) Hypokalemia Is this a current diagnosis for this admission?: Yes (5) Pustule Is this a current diagnosis for this admission?: Yes
[2016-08-21 18:38] LABS: ALANINE AMINOTRANSFERASE 33 U/L (9-52); ALBUMIN 3.3 g/dL (3.5-5.0); ALKALINE PHOSPHATASE 95 U/L (38-126); ANION GAP 12 (5-19); ASPARTATE AMINO TRANSFERASE 30 U/L (14-36); BILIRUBIN,TOTAL 0.4 mg/dL (0.2-1.3); BLOOD UREA NITROGEN 16 mg/dL (7-20); CALCIUM 8.7 mg/dL (8.4-10.2); CARBON DIOXIDE 32 mmol/L (22-30); CHLORIDE 93 mmol/L (98-107); CREATININE RESULT 0.51 mg/dL (0.52-1.25); GLUCOSE 94 mg/dL (75-110); POTASSIUM 3.9 mmol/L (3.6-5.0); SODIUM 136.9 mmol/L (137-145); TOTAL PROTEIN 6.8 g/dL (6.3-8.2)
[2016-08-21 18:55] LABS: ABSOLUTE EOSINOPHILS # (AUTO) 0.1 10^3/uL (0.0-0.6); ABSOLUTE LYMPHOCYTES (AUTO) 2.5 10^3/uL (0.5-4.7); ABSOLUTE MONOCYTES (AUTO) 1.1 10^3/uL (0.1-1.4); ABSOLUTE NEUT (AUTO) 8.9 10^3/uL (1.7-8.2); BASOPHILS % (AUTO) 0.3 % (0-2); EOSINOPHILS % (AUTO) 0.4 % (0-6); HEMOGLOBIN 10.7 g/dL (12.0-15.5); HGB HCT DIFFERENCE -0.9; LYMPHOCYTES % (AUTO) 20.1 % (13-45); MEAN CORPUSCULAR HEMOGLOBIN 26.9 pg (27.0-33.4); MEAN CORPUSCULAR HGB CONC 32.5 g/dL (32.0-36.0); MEAN CORPUSCULAR VOLUME 83 fl (80-97); MONOCYTES % (AUTO) 8.7 % (3-13); RED BLOOD COUNT 3.98 10^6/uL (3.72-5.28); RED CELL DISTRIBUTION WIDTH 13.4 % (11.5-14.0); SEGMENTED NEUTROPHILS % (AUTO) 70.5 % (42-78); WHITE BLOOD COUNT 12.6 10^3/uL (4.0-10.5)
[2016-08-21] MEDS: DOCUSATE SODIUM 100 MG CAPSULE PO SCH (22:14)
[2016-08-21] MEDS: BUSPIRONE HCL 10 MG TABLET PO SCH (22:14)
[2016-08-22 04:59] LABS: ABSOLUTE BASOPHILS # (AUTO) 0.1 10^3/uL (0.0-0.2); ABSOLUTE LYMPHOCYTES (AUTO) 2.6 10^3/uL (0.5-4.7); ABSOLUTE MONOCYTES (AUTO) 1.4 10^3/uL (0.1-1.4); ABSOLUTE NEUT (AUTO) 8.5 10^3/uL (1.7-8.2); BASOPHILS % (AUTO) 0.6 % (0-2); HEMATOCRIT 31.7 % (36.0-47.0); HEMOGLOBIN 10.2 g/dL (12.0-15.5); HGB HCT DIFFERENCE -1.1; LYMPHOCYTES % (AUTO) 20.4 % (13-45); MEAN CORPUSCULAR HEMOGLOBIN 26.8 pg (27.0-33.4); MEAN CORPUSCULAR HGB CONC 32.3 g/dL (32.0-36.0); MEAN CORPUSCULAR VOLUME 83 fl (80-97); MONOCYTES % (AUTO) 11.1 % (3-13); RED BLOOD COUNT 3.82 10^6/uL (3.72-5.28); RED CELL DISTRIBUTION WIDTH 13.6 % (11.5-14.0); SEGMENTED NEUTROPHILS % (AUTO) 67.9 % (42-78); WHITE BLOOD COUNT 12.5 10^3/uL (4.0-10.5)
[2016-08-22 05:21] LABS: ALANINE AMINOTRANSFERASE 35 U/L (9-52); ALBUMIN 3.3 g/dL (3.5-5.0); ALKALINE PHOSPHATASE 95 U/L (38-126); ANION GAP 14 (5-19); ASPARTATE AMINO TRANSFERASE 29 U/L (14-36); BILIRUBIN,TOTAL 0.4 mg/dL (0.2-1.3); BLOOD UREA NITROGEN 17 mg/dL (7-20); CARBON DIOXIDE 32 mmol/L (22-30); CHLORIDE 95 mmol/L (98-107); CREATININE RESULT 0.53 mg/dL (0.52-1.25); GLUCOSE 93 mg/dL (75-110); POTASSIUM 4.7 mmol/L (3.6-5.0); SODIUM 140.9 mmol/L (137-145); TOTAL PROTEIN 6.9 g/dL (6.3-8.2)
[2016-08-22] MEDS: ACETAMINOPHEN 325 MG TABLET PO SCH ×3 (05:52→21:17)
[2016-08-22] MEDS: LEVETIRACETAM 500 MG TABLET PO SCH ×2 (05:52→17:42)
[2016-08-22] MEDS: CLINDAMYCIN HCL 150 MG CAPSULE PO SCH ×3 (05:52→21:17)
[2016-08-22] MEDS: ENOXAPARIN SODIUM INJ 40 MG/0.4 ML DISP.SYRIN SUBCUT SCH (07:55)
[2016-08-22] MEDS: BISACODYL 5 MG TABEC PO SCH (10:13)
[2016-08-22] MEDS: RISPERIDONE 0.5 MG TAB.RAPDIS PO SCH ×2 (10:14→17:42)
[2016-08-22] MEDS: DIVALPROEX SODIUM 125 MG CAP.SPRINK PO SCH ×3 (10:14→17:42)
[2016-08-22] MEDS: BENZTROPINE MESYLATE 1 MG TABLET PO SCH ×2 (10:14→17:42)
[2016-08-22] MEDS: BUSPIRONE HCL 10 MG TABLET PO SCH (21:17)
[2016-08-22] MEDS: DOCUSATE SODIUM 100 MG CAPSULE PO SCH (21:18)
--- NOTE | 2016-08-22 21:47 | PDOC PROGRESS REPORT ---
Subjective Progress Note for:: 08/22/16 Subjective:: Patient is back again to her psychotic state, she was quite well the last 2 days taking her medication and eating appropriately now she is refusing medication and also food intake and now she is delusional and paranoia Physical Exam Vital Signs: Temp Pulse Resp BP Pulse Ox 98.2 F 80 22 H 123/64 100 08/22/16 16:42 08/22/16 16:42 08/22/16 16:42 08/22/16 16:42 08/22/16 16:42 Intake & Output 08/21/16 08/22/16 08/23/16 06:59 06:59 06:59 Intake Total 490 720 0 Output Total 1 Balance 489 720 0 General appearance: PRESENT: mild distress Eye exam: PRESENT: PERRLA Respiratory exam: PRESENT: clear to auscultation meera Cardiovascular exam: PRESENT: +S1, +S2 Murmur grade: 3 GI/Abdominal exam: PRESENT: soft Results Laboratory Results: 08/22/16 04:00 08/22/16 04:00 08/22/16 08/22/16 04:00 04:00 WBC 12.5 H RBC 3.82 Hgb 10.2 L Hct 31.7 L MCV 83 MCH 26.8 L MCHC 32.3 RDW 13.6 Plt Count 211 Seg Neutrophils % 67.9 Lymphocytes % 20.4 Monocytes % 11.1 Eosinophils % 0.0 Basophils % 0.6 Absolute Neutrophils 8.5 H Absolute Lymphocytes 2.6 Absolute Monocytes 1.4 Absolute Eosinophils 0.0 Absolute Basophils 0.1 Sodium 140.9 Potassium 4.7 Chloride 95 L Carbon Dioxide 32 H Anion Gap 14 BUN 17 Creatinine 0.53 Est GFR ( Amer) > 60 Est GFR (Non-Af Amer) > 60 Glucose 93 Calcium 9.0 Total Bilirubin 0.4 AST 29 ALT 35 Alkaline Phosphatase 95 Total Protein 6.9 Albumin 3.3 L Impressions: Chest X-Ray 07/31/16 00:00 IMPRESSION: NO ACUTE RADIOGRAPHIC FINDING IN THE CHEST. Head CT 07/31/16 00:00 IMPRESSION: No acute abnormality in the brain. Assessment & Plan - Diagnosis (1) Enterococcus UTI Is this a current diagnosis for this admission?: Yes (2) Schizophrenia Qualifiers: Schizophrenia type: unspecified Qualified Code(s): F20.9 - Schizophrenia, unspecified Is this a current diagnosis for this admission?: Yes (3) Acute psychosis Is this a current diagnosis for this admission?: Yes (4) Hypokalemia Is this a current diagnosis for this admission?: Yes (5) Pustule Is this a current diagnosis for this admission?: Yes
[2016-08-23] MEDS: CLINDAMYCIN HCL 150 MG CAPSULE PO SCH ×3 (06:39→21:53)
[2016-08-23] MEDS: ACETAMINOPHEN 325 MG TABLET PO SCH ×3 (06:39→21:52)
[2016-08-23] MEDS: LEVETIRACETAM 500 MG TABLET PO SCH ×2 (06:39→17:48)
[2016-08-23] MEDS: ENOXAPARIN SODIUM INJ 40 MG/0.4 ML DISP.SYRIN SUBCUT SCH (10:12)
[2016-08-23] MEDS: DIVALPROEX SODIUM 125 MG CAP.SPRINK PO SCH ×3 (10:18→17:48)
[2016-08-23] MEDS: BENZTROPINE MESYLATE 1 MG TABLET PO SCH ×2 (10:21→17:48)
[2016-08-23] MEDS: RISPERIDONE 0.5 MG TAB.RAPDIS PO SCH ×2 (10:21→17:48)
[2016-08-23] MEDS: DOCUSATE SODIUM 100 MG CAPSULE PO SCH (21:52)
[2016-08-23] MEDS: BUSPIRONE HCL 10 MG TABLET PO SCH (21:53)
[2016-08-24] MEDS: ACETAMINOPHEN 325 MG TABLET PO SCH ×3 (05:29→21:28)
[2016-08-24] MEDS: LEVETIRACETAM 500 MG TABLET PO SCH ×2 (06:25→19:29)
[2016-08-24] MEDS: CLINDAMYCIN HCL 150 MG CAPSULE PO SCH ×3 (06:26→21:28)
[2016-08-24] MEDS: ENOXAPARIN SODIUM INJ 40 MG/0.4 ML DISP.SYRIN SUBCUT SCH (08:36)
[2016-08-24] MEDS: DIVALPROEX SODIUM 125 MG CAP.SPRINK PO SCH ×2 (13:24→19:29)
[2016-08-24] MEDS: RISPERIDONE 0.5 MG TAB.RAPDIS PO SCH ×2 (13:24→21:26)
[2016-08-24] MEDS: BENZTROPINE MESYLATE 1 MG TABLET PO SCH ×2 (13:24→19:29)
--- NOTE | 2016-08-24 16:59 | PDOC PROGRESS REPORT ---
Subjective Progress Note for:: 08/23/16 Subjective:: Patient continues to manifest psychosis symptoms Physical Exam Vital Signs: Temp Pulse Resp BP Pulse Ox 97.7 F 74 12 112/51 L 100 08/23/16 12:00 08/23/16 12:00 08/23/16 12:00 08/23/16 12:00 08/23/16 12:00 Intake & Output 08/22/16 08/23/16 08/24/16 06:59 06:59 06:59 Intake Total 720 150 243 Balance 720 150 243 General appearance: PRESENT: mild distress Head exam: PRESENT: atraumatic, normocephalic Neck exam: PRESENT: full ROM Respiratory exam: PRESENT: clear to auscultation meera Cardiovascular exam: PRESENT: RRR, +S1, +S2 Murmur grade: 3 Pulses: PRESENT: normal dorsalis pedis pul, +2 pedal pulses bilateral GI/Abdominal exam: PRESENT: normal bowel sounds, soft Rectal exam: PRESENT: deferred Neurological exam: PRESENT: alert. ABSENT: motor sensory deficit Psychiatric exam: PRESENT: agitated Skin exam: PRESENT: dry, intact, warm Results Laboratory Results: 08/22/16 04:00 08/22/16 04:00 Impressions: Chest X-Ray 07/31/16 00:00 IMPRESSION: NO ACUTE RADIOGRAPHIC FINDING IN THE CHEST. Head CT 07/31/16 00:00 IMPRESSION: No acute abnormality in the brain. Assessment & Plan - Diagnosis (1) Enterococcus UTI Is this a current diagnosis for this admission?: Yes (2) Schizophrenia Qualifiers: Schizophrenia type: unspecified Qualified Code(s): F20.9 - Schizophrenia, unspecified Is this a current diagnosis for this admission?: Yes (3) Acute psychosis Is this a current diagnosis for this admission?: Yes (4) Hypokalemia Is this a current diagnosis for this admission?: Yes (5) Pustule Is this a current diagnosis for this admission?: Yes
--- NOTE | 2016-08-24 17:04 | PDOC PROGRESS REPORT ---
Subjective Progress Note for:: 08/24/16 Subjective:: Patient continues to manifest psychosis symptoms Physical Exam Vital Signs: Temp Pulse Resp BP Pulse Ox 97.3 F 78 18 97/64 L 96 08/24/16 08:30 08/24/16 08:30 08/24/16 08:30 08/24/16 08:30 08/24/16 08:30 Intake & Output 08/23/16 08/24/16 08/25/16 06:59 06:59 06:59 Intake Total 150 248 474 Balance 150 248 474 Weight 47.9 kg General appearance: PRESENT: no acute distress Eye exam: PRESENT: PERRLA Respiratory exam: PRESENT: clear to auscultation meera Cardiovascular exam: PRESENT: +S1, +S2 Murmur grade: 3 GI/Abdominal exam: PRESENT: soft Neurological exam: PRESENT: alert Results Laboratory Results: 08/22/16 04:00 08/22/16 04:00 Impressions: Chest X-Ray 07/31/16 00:00 IMPRESSION: NO ACUTE RADIOGRAPHIC FINDING IN THE CHEST. Head CT 07/31/16 00:00 IMPRESSION: No acute abnormality in the brain. Assessment & Plan - Diagnosis (1) Enterococcus UTI Is this a current diagnosis for this admission?: Yes (2) Schizophrenia Qualifiers: Schizophrenia type: unspecified Qualified Code(s): F20.9 - Schizophrenia, unspecified Is this a current diagnosis for this admission?: Yes (3) Acute psychosis Is this a current diagnosis for this admission?: Yes (4) Hypokalemia Is this a current diagnosis for this admission?: Yes (5) Pustule Is this a current diagnosis for this admission?: Yes
[2016-08-24] MEDS: BISACODYL 5 MG TABEC PO SCH (19:29)
[2016-08-24] MEDS: BUSPIRONE HCL 10 MG TABLET PO SCH (21:26)
[2016-08-24] MEDS: DOCUSATE SODIUM 100 MG CAPSULE PO SCH (21:28)
[2016-08-25] MEDS: LEVETIRACETAM 500 MG TABLET PO SCH ×2 (05:23→18:10)
[2016-08-25] MEDS: CLINDAMYCIN HCL 150 MG CAPSULE PO SCH ×3 (05:23→22:22)
[2016-08-25] MEDS: ACETAMINOPHEN 325 MG TABLET PO SCH ×3 (05:24→22:22)
[2016-08-25] MEDS: DIVALPROEX SODIUM 125 MG CAP.SPRINK PO SCH ×3 (10:40→18:10)
[2016-08-25] MEDS: BENZTROPINE MESYLATE 1 MG TABLET PO SCH ×2 (10:40→18:10)
[2016-08-25] MEDS: RISPERIDONE 0.5 MG TAB.RAPDIS PO SCH ×2 (10:40→18:11)
[2016-08-25] MEDS: ENOXAPARIN SODIUM INJ 40 MG/0.4 ML DISP.SYRIN SUBCUT SCH (10:40)
[2016-08-25] MEDS: BUSPIRONE HCL 10 MG TABLET PO SCH (22:22)
[2016-08-25] MEDS: DOCUSATE SODIUM 100 MG CAPSULE PO SCH (22:22)
[2016-08-26] MEDS: LEVETIRACETAM 500 MG TABLET PO SCH ×2 (05:24→18:07)
[2016-08-26] MEDS: CLINDAMYCIN HCL 150 MG CAPSULE PO SCH ×3 (05:24→22:33)
[2016-08-26] MEDS: ACETAMINOPHEN 325 MG TABLET PO SCH ×3 (05:24→22:32)
[2016-08-26] MEDS: BISACODYL 5 MG TABEC PO SCH (10:57)
[2016-08-26] MEDS: ENOXAPARIN SODIUM INJ 40 MG/0.4 ML DISP.SYRIN SUBCUT SCH (10:57)
[2016-08-26] MEDS: BENZTROPINE MESYLATE 1 MG TABLET PO SCH ×2 (10:57→18:07)
[2016-08-26] MEDS: RISPERIDONE 0.5 MG TAB.RAPDIS PO SCH ×2 (10:57→18:09)
[2016-08-26] MEDS: DIVALPROEX SODIUM 125 MG CAP.SPRINK PO SCH ×3 (10:57→22:33)
[2016-08-26] MEDS: CLONIDINE 0.2 MG/24 HR PATCH.TDWK TD SCH (18:11)
--- NOTE | 2016-08-26 19:56 | PDOC PROGRESS REPORT ---
Subjective Progress Note for:: 08/25/16 Subjective:: Patient still agitated, disposition is a challenge for this patient at this time. Physical Exam Vital Signs: Temp Pulse Resp BP Pulse Ox 98.0 F 98 16 90/59 L 98 08/25/16 12:00 08/25/16 12:00 08/25/16 12:00 08/25/16 12:00 08/25/16 12:00 Intake & Output 08/24/16 08/25/16 08/26/16 06:59 06:59 06:59 Intake Total 248 679 Balance 248 679 Weight 47.9 kg 47.5 kg General appearance: PRESENT: no acute distress Eye exam: PRESENT: PERRLA Respiratory exam: PRESENT: clear to auscultation meera Cardiovascular exam: PRESENT: +S1, +S2 Murmur grade: 3 GI/Abdominal exam: PRESENT: soft Neurological exam: PRESENT: alert, CN II-XII grossly intact Results Laboratory Results: 08/22/16 04:00 08/22/16 04:00 Impressions: Chest X-Ray 07/31/16 00:00 IMPRESSION: NO ACUTE RADIOGRAPHIC FINDING IN THE CHEST. Head CT 07/31/16 00:00 IMPRESSION: No acute abnormality in the brain. Assessment & Plan - Diagnosis (1) Enterococcus UTI Is this a current diagnosis for this admission?: Yes (2) Schizophrenia Qualifiers: Schizophrenia type: unspecified Qualified Code(s): F20.9 - Schizophrenia, unspecified Is this a current diagnosis for this admission?: Yes (3) Acute psychosis Is this a current diagnosis for this admission?: Yes (4) Hypokalemia Is this a current diagnosis for this admission?: Yes (5) Pustule Is this a current diagnosis for this admission?: Yes
--- NOTE | 2016-08-26 20:00 | PDOC PROGRESS REPORT ---
Subjective Progress Note for:: 08/26/16 Subjective:: Patient is seen by the bedside, I have attempted to outpatient transferred to the psychiatric facility without success, she is not stable enough to be transferred to assisted living facility. She is eating today. I read the notes from the discharge planning, she indicated that patient can return back to [facility] when she is ready but she continues to manifest psychosis symptom ,she is not able to return back [facility] facility in her present condition, the best option is to transfer her to psychiatric facility and I have indicated this multiple times for this patient ,but unfortunately she was seen by the psychologist that stated she has vascular dementia and because of this diagnoses patient has been refused transfer to a psychiatric facility Physical Exam Vital Signs: Temp Pulse Resp BP Pulse Ox 97.9 F 84 20 89/58 L 96 08/26/16 15:57 08/26/16 15:57 08/26/16 15:57 08/26/16 15:57 08/26/16 15:57 Intake & Output 08/25/16 08/26/16 08/27/16 06:59 06:59 06:59 Intake Total 679 0 507 Balance 679 0 507 Weight 47.5 kg 48.9 kg Eye exam: PRESENT: PERRLA Respiratory exam: PRESENT: clear to auscultation meera Cardiovascular exam: PRESENT: +S1, +S2 Murmur grade: 3 GI/Abdominal exam: PRESENT: soft Results Laboratory Results: 08/22/16 04:00 08/22/16 04:00 Impressions: Chest X-Ray 07/31/16 00:00 IMPRESSION: NO ACUTE RADIOGRAPHIC FINDING IN THE CHEST. Head CT 07/31/16 00:00 IMPRESSION: No acute abnormality in the brain. Assessment & Plan - Diagnosis (1) Enterococcus UTI Is this a current diagnosis for this admission?: Yes (2) Schizophrenia Qualifiers: Schizophrenia type: unspecified Qualified Code(s): F20.9 - Schizophrenia, unspecified Is this a current diagnosis for this admission?: Yes (3) Acute psychosis Is this a current diagnosis for this admission?: Yes (4) Hypokalemia Is this a current diagnosis for this admission?: Yes (5) Pustule Is this a current diagnosis for this admission?: Yes
[2016-08-26] MEDS: BUSPIRONE HCL 10 MG TABLET PO SCH (22:32)
[2016-08-26] MEDS: DOCUSATE SODIUM 100 MG CAPSULE PO SCH (22:32)
[2016-08-27] MEDS: CLINDAMYCIN HCL 150 MG CAPSULE PO SCH ×2 (07:28→15:12)
[2016-08-27] MEDS: LEVETIRACETAM 500 MG TABLET PO SCH ×2 (07:28→19:37)
[2016-08-27] MEDS: ACETAMINOPHEN 325 MG TABLET PO SCH ×3 (07:28→21:25)
[2016-08-27] MEDS: RISPERIDONE 0.5 MG TAB.RAPDIS PO SCH ×2 (09:26→18:57)
[2016-08-27] MEDS: ENOXAPARIN SODIUM INJ 40 MG/0.4 ML DISP.SYRIN SUBCUT SCH (10:31)
--- NOTE | 2016-08-27 10:50 | PDOC PROGRESS REPORT ---
Subjective Progress Note for:: 08/27/16 Subjective:: Patient is doing well patient was admitted because of the UTI and mental health problems I believe on medical problem is resolved. Patient have a significant psych issue and waiting for the bed Physical Exam Vital Signs: Temp Pulse Resp BP Pulse Ox 98.2 F 72 16 97/60 L 96 08/27/16 00:09 08/27/16 00:09 08/27/16 00:09 08/27/16 00:09 08/27/16 00:09 Intake & Output 08/26/16 08/27/16 08/28/16 06:59 06:59 06:59 Intake Total 0 1007 Balance 0 1007 Weight 48.9 kg General appearance: PRESENT: no acute distress Head exam: PRESENT: normocephalic Eye exam: PRESENT: PERRLA Mouth exam: PRESENT: neck supple Respiratory exam: PRESENT: clear to auscultation meera Cardiovascular exam: PRESENT: +S1, +S2 Murmur grade: 3 GI/Abdominal exam: PRESENT: normal bowel sounds, soft Extremities exam: ABSENT: pedal edema Neurological exam: PRESENT: alert, awake Results Laboratory Results: 08/22/16 04:00 08/22/16 04:00 Impressions: Chest X-Ray 07/31/16 00:00 IMPRESSION: NO ACUTE RADIOGRAPHIC FINDING IN THE CHEST. Head CT 07/31/16 00:00 IMPRESSION: No acute abnormality in the brain. Assessment & Plan - Diagnosis (1) Urinary tract infection Qualifiers: Urinary tract infection type: site unspecified Is this a current diagnosis for this admission?: YesPlan: Resolving (2) Leukocytosis Qualifiers: Leukocytosis type: unspecified Qualified Code(s): D72.829 - Elevated white blood cell count, unspecified Is this a current diagnosis for this admission?: YesPlan: Resolving (3) Dementia Qualifiers: Dementia type: unspecified type Is this a current diagnosis for this admission?: YesPlan: Is likely due to the site issue (4) Altered mental status Qualifiers: Altered mental status type: unspecified Qualified Code(s): R41.82 - Altered mental status, unspecified Is this a current diagnosis for this admission?: YesPlan: Significant underlying psych problems (5) Schizophrenia Qualifiers: Schizophrenia type: unspecified Qualified Code(s): F20.9 - Schizophrenia, unspecified Is this a current diagnosis for this admission?: YesPlan: With a psychiatrist (6) Hypernatremia Is this a current diagnosis for this admission?: Yes - Time Time Spent with patient: 15-24 minutes Medications reviewed and adjusted accordingly: Yes Anticipated discharge: Other Within: Other - Inpatient Certification Medical Necessity: Need Close Monitoring Due to Risk of Patient Decompensation Post Hospital Care: D/C [employer] Documentation - Plan Summary Plan Summary: Is medically stable continues the current medications
[2016-08-27] MEDS: DIVALPROEX SODIUM 125 MG CAP.SPRINK PO SCH ×3 (12:16→19:37)
[2016-08-27] MEDS: BENZTROPINE MESYLATE 1 MG TABLET PO SCH ×2 (12:16→19:37)
[2016-08-27] MEDS: BUSPIRONE HCL 10 MG TABLET PO SCH (21:24)
[2016-08-27] MEDS: DOCUSATE SODIUM 100 MG CAPSULE PO SCH (21:31)
[2016-08-28] MEDS: LEVETIRACETAM 500 MG TABLET PO SCH ×2 (07:03→18:45)
[2016-08-28] MEDS: ACETAMINOPHEN 325 MG TABLET PO SCH ×3 (07:03→22:01)
[2016-08-28] MEDS: ENOXAPARIN SODIUM INJ 40 MG/0.4 ML DISP.SYRIN SUBCUT SCH (08:50)
--- NOTE | 2016-08-28 10:27 | PDOC PROGRESS REPORT ---
Subjective Progress Note for:: 08/28/16 Subjective:: Patient is doing well patient was admitted because of the UTI and mental health problems I believe on medical problem is resolved. Patient have a significant psych issue and waiting for the bed Physical Exam Vital Signs: Temp Pulse Resp BP Pulse Ox 97.2 F 62 18 104/78 95 08/28/16 08:04 08/28/16 08:04 08/28/16 08:04 08/28/16 08:04 08/28/16 08:04 Intake & Output 08/27/16 08/28/16 08/29/16 06:59 06:59 06:59 Intake Total 1007 1061 Balance 1007 1061 General appearance: PRESENT: no acute distress, well-developed, well-nourished Head exam: PRESENT: atraumatic, normocephalic Eye exam: PRESENT: conjunctiva pink, EOMI, PERRLA. ABSENT: scleral icterus Ear exam: PRESENT: normal external ear exam Mouth exam: PRESENT: moist, tongue midline Neck exam: PRESENT: full ROM. ABSENT: carotid bruit, JVD, lymphadenopathy, thyromegaly Respiratory exam: PRESENT: clear to auscultation meera Cardiovascular exam: PRESENT: RRR. ABSENT: diastolic murmur, rubs, systolic murmur Murmur grade: 3 Pulses: PRESENT: normal dorsalis pedis pul, +2 pedal pulses bilateral Vascular exam: PRESENT: normal capillary refill GI/Abdominal exam: PRESENT: normal bowel sounds, soft. ABSENT: distended, guarding, mass, organolmegaly, rebound, tenderness Rectal exam: PRESENT: deferred Neurological exam: PRESENT: alert, awake. ABSENT: motor sensory deficit Psychiatric exam: PRESENT: appropriate affect, normal mood. ABSENT: homicidal ideation, suicidal ideation Focused psych exam: PRESENT: psychomotor agitation Results Laboratory Results: 08/22/16 04:00 08/22/16 04:00 Impressions: Chest X-Ray 07/31/16 00:00 IMPRESSION: NO ACUTE RADIOGRAPHIC FINDING IN THE CHEST. Head CT 07/31/16 00:00 IMPRESSION: No acute abnormality in the brain. Assessment & Plan - Diagnosis (1) Urinary tract infection Qualifiers: Urinary tract infection type: site unspecified Is this a current diagnosis for this admission?: YesPlan: Resolving (2) Leukocytosis Qualifiers: Leukocytosis type: unspecified Qualified Code(s): D72.829 - Elevated white blood cell count, unspecified Is this a current diagnosis for this admission?: YesPlan: Resolving (3) Dementia Qualifiers: Dementia type: unspecified type Is this a current diagnosis for this admission?: YesPlan: Is likely due to the site issue (4) Altered mental status Qualifiers: Altered mental status type: unspecified Qualified Code(s): R41.82 - Altered mental status, unspecified Is this a current diagnosis for this admission?: YesPlan: Significant underlying psych problems (5) Schizophrenia Qualifiers: Schizophrenia type: unspecified Qualified Code(s): F20.9 - Schizophrenia, unspecified Is this a current diagnosis for this admission?: YesPlan: With a psychiatrist (6) Hypernatremia Is this a current diagnosis for this admission?: YesPlan: Start the patient on a D5 1 half normal saline with the underlying some rhabdo due to the most agitated behavior - Time Time Spent with patient: 15-24 minutes Medications reviewed and adjusted accordingly: Yes Anticipated discharge: Other - Inpatient Certification Medical Necessity: Need Close Monitoring Due to Risk of Patient Decompensation Post Hospital Care: D/C [employer] Documentation - Plan Summary Plan Summary: cont curr med
[2016-08-28] MEDS: RISPERIDONE 0.5 MG TAB.RAPDIS PO SCH ×2 (11:00→18:45)
[2016-08-28] MEDS: BISACODYL 5 MG TABEC PO SCH (11:02)
[2016-08-28] MEDS: DIVALPROEX SODIUM 125 MG CAP.SPRINK PO SCH ×3 (11:02→17:48)
[2016-08-28] MEDS: BENZTROPINE MESYLATE 1 MG TABLET PO SCH ×2 (11:03→17:48)
[2016-08-28] MEDS: BUSPIRONE HCL 10 MG TABLET PO SCH (22:01)
[2016-08-28] MEDS: DOCUSATE SODIUM 100 MG CAPSULE PO SCH (22:02)
[2016-08-29] MEDS: ACETAMINOPHEN 325 MG TABLET PO SCH ×3 (06:59→22:07)
[2016-08-29] MEDS: LEVETIRACETAM 500 MG TABLET PO SCH ×2 (06:59→19:52)
[2016-08-29] MEDS: ENOXAPARIN SODIUM INJ 40 MG/0.4 ML DISP.SYRIN SUBCUT SCH (09:18)
[2016-08-29] MEDS: BENZTROPINE MESYLATE 1 MG TABLET PO SCH ×2 (10:26→19:52)
[2016-08-29] MEDS: RISPERIDONE 0.5 MG TAB.RAPDIS PO SCH ×2 (10:26→19:52)
[2016-08-29] MEDS: DIVALPROEX SODIUM 125 MG CAP.SPRINK PO SCH ×3 (10:26→19:52)
--- NOTE | 2016-08-29 19:58 | PDOC TRANSFER SUMMARY ---
General - Admit/Disc Date/PCP Admission Date/Primary Care Provider: 07/31/16 18:18 JUAN M LE MD Discharge Date: 08/29/16 - Discharge Diagnosis (1) Enterococcus UTI Is this a current diagnosis for this admission?: Yes (2) Schizophrenia Is this a current diagnosis for this admission?: Yes (3) Acute psychosis Is this a current diagnosis for this admission?: Yes (4) Hypokalemia Is this a current diagnosis for this admission?: Yes (5) Pustule Is this a current diagnosis for this admission?: Yes - Additional Information Resuscitation Status: Full Code Home Medications: Haloperidol [Haldol 5 mg Tablet] 5 mg PO BID 11/16/13 Ibuprofen [Motrin 600 Mg Tablet] 600 mg PO TID #30 tablet 03/29/15 Acetaminophen [Tylenol 325 mg Tablet] 650 mg PO Q8 07/29/16 Aripiprazole [Abilify 10 mg Tablet] 10 mg PO DAILY 07/29/16 Benztropine Mesylate [Benztropine Mesylate 2 mg Tablet] 2 mg PO BID 07/29/16 Bisacodyl [Dulcolax 5 mg Tablet] 10 mg PO Q2D 07/29/16 Calcium Carbonate [Calcium] 500 mg PO Q4HP PRN 07/29/16 Divalproex Sodium 250 mg PO QHS 07/29/16 Docusate Sodium [Colace 100 mg Capsule] 100 mg PO QHS 07/29/16 Haloperidol [Haldol 2 mg Tablet] 2 mg PO BID 07/29/16 Lorazepam 2 mg PO Q6HP PRN 07/29/16 Lorazepam [Ativan 1 mg Tablet] 1 mg PO BID 07/29/16 History of Present Illness Admission Date/PCP: 07/31/16 18:18 JUAN M LE MD History of Present Illness: Patient was admitted because of altered mental status on 07/31/2016 she was initially IVC in the emergency room but it was felt that she had a UTI and she needed to be admitted for treatment of UTI. Hospital Course Hospital Course: Patient was admitted on July 31, 2016 when she presented to the emergency room with altered mental status, on presentation it was felt that she has metabolic encephalopathy due to UTI. Patient hospital course was prolonged because of the fact that she manifested acute psychosis. The urine culture grew enterococcus faecalis and she was treated appropriately with IV antibiotic , ampicillin for 10 days, despite adequate treatment with IV antibiotic and also appropriate antibiotic based on culture and sensitivity test patient psychosis did not subside she was hallucinating, delusional and paranoia. She has a long history of schizophrenia and she was managed with antipsychotic and she was controlled. The staff at the assisted living facility where she resides also stated that she has been showing signs of psychosis, she has been refusing to eat because she thought she was being poisoned. Patient was IVC, involuntary confinement but no psychiatric facility we are septa because she was seen by the psychologist who says she has vascular dementia and I totally disagree with his diagnosis because I did not know what she based the diagnosis on. She is not known to have history of CVA or any vascular disease of the brain that we were not the diagnosis of vascular dementia but because she was labeled as vascular dementia no psychiatry facility will accept her. She refused food intake for prolonged period and she was managed with IV fluids for very prolonged period of time. Her condition was seen obviously because apparently a regular antipsychotic drug was also stopped because the psychologist said haldol and the atypicals will make her psychosis worse.She was managed as best as we could without any psychiatry input and no psychiatry facility would accept her ,at this stage it seems that she has optmize her present hospital stay and she would be discharged back to the assisted living facility where she came from Physical Exam Vital Signs: Temp Pulse Resp BP Pulse Ox 97.8 F 69 20 114/69 100 08/29/16 11:39 08/29/16 16:00 08/29/16 16:00 08/29/16 16:00 08/29/16 07:56 Intake & Output 08/28/16 08/29/16 08/30/16 06:59 06:59 06:59 Intake Total 1061 774 900 Balance 1061 774 900 General appearance: PRESENT: no acute distress, thin Eye exam: PRESENT: PERRLA Respiratory exam: PRESENT: clear to auscultation meera Cardiovascular exam: PRESENT: +S1, +S2 GI/Abdominal exam: PRESENT: soft Neurological exam: PRESENT: alert Results Laboratory Results: 08/22/16 04:00 08/22/16 04:00 Impressions: Chest X-Ray 07/31/16 00:00 IMPRESSION: NO ACUTE RADIOGRAPHIC FINDING IN THE CHEST. Head CT 07/31/16 00:00 IMPRESSION: No acute abnormality in the brain.
[2016-08-29] MEDS: DOCUSATE SODIUM 100 MG CAPSULE PO SCH (22:07)
[2016-08-29] MEDS: BUSPIRONE HCL 10 MG TABLET PO SCH (22:07)
[2016-08-30] MEDS: LEVETIRACETAM 500 MG TABLET PO SCH ×2 (05:10→17:37)
[2016-08-30] MEDS: ENOXAPARIN SODIUM INJ 40 MG/0.4 ML DISP.SYRIN SUBCUT SCH (08:49)
[2016-08-30] MEDS: DIVALPROEX SODIUM 125 MG CAP.SPRINK PO SCH ×3 (11:21→17:37)
[2016-08-30] MEDS: BENZTROPINE MESYLATE 1 MG TABLET PO SCH ×2 (11:22→17:37)
[2016-08-30] MEDS: RISPERIDONE 0.5 MG TAB.RAPDIS PO SCH ×2 (11:22→17:37)
[2016-08-30] MEDS: BISACODYL 5 MG TABEC PO SCH (11:23)
[2016-08-30] MEDS: ACETAMINOPHEN 325 MG TABLET PO SCH ×2 (14:07→22:55)
[2016-08-30] MEDS: DOCUSATE SODIUM 100 MG CAPSULE PO SCH (22:55)
[2016-08-30] MEDS: BUSPIRONE HCL 10 MG TABLET PO SCH (22:55)
[2016-08-31] MEDS: ACETAMINOPHEN 325 MG TABLET PO SCH (06:38)
[2016-08-31] MEDS: LEVETIRACETAM 500 MG TABLET PO SCH (06:38)
[2016-08-31] MEDS: ENOXAPARIN SODIUM INJ 40 MG/0.4 ML DISP.SYRIN SUBCUT SCH (07:29)
[2016-08-31 08:44] VITALS: BP 113/62
[2016-08-31] MEDS: BENZTROPINE MESYLATE 1 MG TABLET PO SCH (09:29)
[2016-08-31] MEDS: RISPERIDONE 0.5 MG TAB.RAPDIS PO SCH (09:29)
[2016-08-31] MEDS: DIVALPROEX SODIUM 125 MG CAP.SPRINK PO SCH (09:29)
== END 2016-08-31 10:21 | DRG 885 ==
LOC: ER 18:24 → UNDOADMIN 07-31 02:43 → EH 07-31 02:43 → 4S 07-31 10:23 → EH 07-31 18:18 → 4S 07-31 18:18 → 4N 08-12 21:55
PROVIDERS: ADMIT Internal Medicine; ATTEND Internal Medicine
DX: F20.9 Schizophrenia, unspecified (principal); N39.0 Urinary tract infection, site not specified; F03.91 Unspecified dementia, unspecified severity, with behavioral disturbance; E87.0 Hyperosmolality and hypernatremia; F31.9 Bipolar disorder, unspecified; F42.9 Obsessive-compulsive disorder, unspecified; Z78.1 Physical restraint status; B95.2 Enterococcus as the cause of diseases classified elsewhere; E87.6 Hypokalemia; F50.89 Other specified eating disorder; L08.0 Pyoderma; B95.62 Methicillin resistant Staphylococcus aureus infection as the cause of diseases classified elsewhere; D72.829 Elevated white blood cell count, unspecified; Z75.1 Person awaiting admission to adequate facility elsewhere; Z88.8 Allergy status to other drugs, medicaments and biological substances; Z86.14 Personal history of Methicillin resistant Staphylococcus aureus infection; Z89.021 Acquired absence of right finger(s); Z79.899 Other long term (current) drug therapy
CPT/HCPCS: 36415; 70450; 71010; 80048; 80053; 80307; 81001; 82550; 82565; 83605; 85025; 85027; 85610; 85730; 87040; 87086; 87088; 87186; 93005; 93010; 96365; 96367; 96372; 96375; 99285; J0290; J0696; J1165; J1200; J1630; J1650; J1885; J2060; J3480; J3490; J8499

== ENCOUNTER 2016-09-21 20:39 | Emergency (ER) | payer MEDICARE, MEDICAID ==
[2016-09-21] MEDS ORDERED: LIDOCAINE 4%/TETRACAINE 0.5%/EPI 0.18% 5 ML TOPICAL SOLN TOP ONE (22:02)
--- NOTE | 2016-09-21 23:00 | ER Document Report ---
ED Skin Rash/Insect Bite/Abscs - General Stated Complaint: RASH Notes: Patient is a 60-year-old female that comes from [facility] by EMS for chief complaint of a rash mainly over her mid to lower abdomen, bilateral, patient has been scratching this, EMS is unable to tell me how long it has been there. Patient has not had any fevers, patient is acting at her baseline per EMS which is confused. She will follow orders but will not engage in conversation. TRAVEL OUTSIDE OF THE [place] IN LAST 30 DAYS: No - Related Data Allergies/Adverse Reactions: Benzodiazepines Adverse Reaction (Verified 07/31/16 11:29) anti-psychotics Adverse Reaction (Uncoded 07/29/16 16:14) Abnormal behavior Past Medical History - General Information source: Patient - Social History Smoking Status: Never Smoker Frequency of alcohol use: None Drug Abuse: None Lives with: Family Family History: Reviewed & Not Pertinent - Past Medical History Cardiac Medical History: Reports: Hx Coronary Artery Disease, Hx Hypercholesterolemia, Hx Hypertension Denies: Hx Heart Attack Pulmonary Medical History: Denies: Hx Asthma, Hx Bronchitis, Hx COPD, Hx Pneumonia Neurological Medical History: Reports: Hx Seizures Musculoskeltal Medical History: Denies Hx Arthritis Skin Medical History: Reports Hx Eczema, Reports Hx MRSA Psychiatric Medical History: Reports: Hx Anxiety, Hx Dementia, Hx Obsessive Compulsive Disorder, 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 Past Surgical History: Reports: Hx Orthopedic Surgery - right index amputation, left index area removal - Immunizations Hx Diphtheria, Pertussis, Tetanus Vaccination: Yes Review of Systems - Review of Systems Constitutional: No symptoms reported EENT: No symptoms reported Cardiovascular: No symptoms reported Respiratory: No symptoms reported Gastrointestinal: No symptoms reported Genitourinary: No symptoms reported Female Genitourinary: No symptoms reported Musculoskeletal: No symptoms reported Skin: See HPI Hematologic/Lymphatic: No symptoms reported Neurological/Psychological: No symptoms reported Physical Exam - Vital signs Vitals: Temp Pulse Resp BP Pulse Ox 98.4 F 81 19 138/92 H 98 09/21/16 20:57 09/21/16 20:57 09/21/16 20:57 09/21/16 20:57 09/21/16 20:57 Interpretation: Normal - General General appearance: Appears well, Alert - HEENT Head: Normocephalic, Atraumatic Eyes: Normal Pupils: PERRL - Respiratory Respiratory status: No respiratory distress Chest status: Nontender Breath sounds: Normal Chest palpation: Normal - Cardiovascular Rhythm: Regular Heart sounds: Normal auscultation Murmur: No - Abdominal Inspection: Normal Distension: No distension Bowel sounds: Normal Tenderness: Nontender Organomegaly: No organomegaly - Back Back: Normal, Nontender - Extremities General upper extremity: Normal inspection, Nontender, Normal color, Normal ROM , Normal temperature General lower extremity: Normal inspection, Nontender, Normal color, Normal ROM , Normal temperature, Normal weight bearing. No: Shannan's sign - Neurological Neuro grossly intact: Yes Cognition: Normal Orientation: AAOx4 Derian Coma Scale Eye Opening: Spontaneous [place] Coma Scale Verbal: Oriented Derian Coma Scale Motor: Obeys Commands Derian Coma Scale Total: 15 Speech: Normal Motor strength normal: LUE, RUE, LLE, RLE Sensory: Normal - Psychological Associated symptoms: Normal affect, Normal mood - Skin Skin Temperature: Warm Skin Moisture: Dry Skin Color: Normal Skin irregularity: Abscess - Left lower abdominal wall superficial abscess with localized induration and fluctuance but no significant surrounding erythema, other - Multiple areas of excoriations with mild erythema over the mid to lower abdomen Course - Re-evaluation Re-evalutation: Patient has multiple excoriated sites over her mid to lower abdomen, there is an indurated and fluctuant one on her left lower abdominal area, this was excised and drained, this was dressed, patient will be placed on antibiotics, provided with treatment and return instructions. - Vital Signs Vital signs: Temp Pulse Resp BP Pulse Ox 98.4 F 78 17 122/82 98 09/21/16 20:57 09/22/16 03:23 09/22/16 03:23 09/22/16 03:23 09/22/16 03:23 Procedures - Incision and Drainage left lower abdominal wall Type: Single Anesthetic type: Other - l.e.t. Blade size: 11 I&D procedure: Other - Surgical cleanser Incision Method: Incision made by scalpel Notes: Small amount of purulent and bloody drainage expressed, patient tolerated very well, cleaned and dressed Discharge - Discharge Clinical Impression: Abscess, Skin rash Condition: Stable Disposition: HOME, SELF-CARE Additional Instructions: The abscess was opened and drained, cleaned with soap and water, perform daily dressing changes, apply absorbent dressing. There are other locations of infection, give Bactrim and Keflex antibiotics as directed, cut nails short to avoid additional infections from scratching, if she scratches open any of the areas I recommended placing a bacitracin dressing over this to prevent her from continuing to scratch. Follow-up with primary care. Return for any concerning or worsening symptoms including spreading redness, fever, etc. Prescriptions: Cephalexin Monohydrate [Keflex 500 mg Capsule] 500 mg PO QID #28 capsule Sulfamethoxazole/Trimethoprim [Bactrim Ds Tablet] 1 each PO BID #14 tablet
[2016-09-21] MEDS ORDERED: DIPHENHYDRAMINE HCL 50 MG/ML VIAL IM ONE (23:22)
[2016-09-22] MEDS ORDERED: HALOPERIDOL LACTATE INJ 5 MG/1 ML VIAL IM ONE (00:31)
[2016-09-22] MEDS ORDERED: LORAZEPAM INJ 2 MG/1 ML VIAL IM ONE (01:02)
[2016-09-22] MEDS ORDERED: LORAZEPAM INJ 2 MG/1 ML VIAL ONE (01:06)
[2016-09-22 03:24] VITALS: BP 122/82
== END 2016-09-22 03:23 | disposition home or self-care (01) ==
LOC: ER 20:39
PROC: 0H97XZZ Drainage of Abdomen Skin, External Approach (ICD-10-PCS; principal; 2016-09-21)
DX: L02.211 Cutaneous abscess of abdominal wall (principal); R21 Rash and other nonspecific skin eruption
CPT/HCPCS: 99284; 10060; J1200; J1630

== ENCOUNTER 2016-10-18 19:02 | Observation (INO) | payer MEDICARE, MEDICAID ==
[2016-10-18] MEDS ORDERED: LORAZEPAM INJ 2 MG/1 ML VIAL IM ONE (19:23)
--- NOTE | 2016-10-18 19:29 | ER Document Report ---
ED General - General Stated Complaint: ALTERED MENTAL STATUS Time Seen by Provider: 10/18/16 19:11 TRAVEL OUTSIDE OF THE [place] IN LAST 30 DAYS: No - HPI Patient complains to provider of: abnormal behavior Onset: This morning Similar symptoms previously: Yes Notes: Patient is a 60-year-old female with a history of schizophrenia who was sent from [facility] for abnormal behavior, she has been seen in this emergency room for this in the past which was related to a likely UTI, patient is awake and alert, not interactive, shouting incomprehensible words, combative requiring physical and pharmacologic restraint - Related Data Allergies/Adverse Reactions: Benzodiazepines Adverse Reaction (Verified 07/31/16 11:29) anti-psychotics Adverse Reaction (Uncoded 07/29/16 16:14) Abnormal behavior Past Medical History - General Information source: Outside Facility Records - Social History Smoking Status: Unknown if Ever Smoked Family History: Reviewed & Not Pertinent - Past Medical History Cardiac Medical History: Reports: Hx Coronary Artery Disease, Hx Hypercholesterolemia, Hx Hypertension Denies: Hx Heart Attack Pulmonary Medical History: Denies: Hx Asthma, Hx Bronchitis, Hx COPD, Hx Pneumonia Neurological Medical History: Reports: Hx Seizures Renal/ Medical History: Denies: Hx Peritoneal Dialysis Musculoskeltal Medical History: Denies Hx Arthritis Skin Medical History: Reports Hx Eczema, Reports Hx MRSA Psychiatric Medical History: Reports: Hx Anxiety, Hx Dementia, Hx Obsessive Compulsive Disorder, 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 Past Surgical History: Reports: Hx Orthopedic Surgery - right index amputation, left index area removal - Immunizations Hx Diphtheria, Pertussis, Tetanus Vaccination: Yes Review of Systems - Review of Systems -: Yes ROS unobtainable due to patient's medical condition Physical Exam - Vital signs Vitals: Temp Pulse Resp BP Pulse Ox 98.4 F 69 17 121/60 100 10/19/16 00:09 10/19/16 00:09 10/19/16 00:09 10/19/16 00:09 10/19/16 00:09 Interpretation: Normal - General General appearance: Alert, Combative - HEENT Head: Normocephalic, Atraumatic Eyes: Normal Conjunctiva: Normal Extraocular movements intact: Yes Eyelashes: Normal Pupils: PERRL Pharynx: Normal Neck: Normal - Respiratory Respiratory status: No respiratory distress - Cardiovascular Rhythm: Regular - Abdominal Inspection: Normal - Rectal Tenderness: No Stool: Other - Brown stools, no gross blood - Back Back: Normal - Extremities General upper extremity: Normal inspection General lower extremity: Normal inspection - Neurological Derian Coma Scale Eye Opening: Spontaneous [place] Coma Scale Verbal: Inappropriate Derian Coma Scale Motor: Withdraws to Pain Derian Coma Scale Total: 11 - Psychological Associated symptoms: Combative, Confused - Skin Skin Temperature: Warm Skin Moisture: Dry Skin Color: Normal Course - Re-evaluation Re-evalutation: 10/19/16 00:33 Patient was discussed with Dr. Jayce Webster who agrees to admit for further evaluation of anemia, recommends patient received a blood transfusion as well - Vital Signs Vital signs: Temp Pulse Resp BP Pulse Ox 98.4 F 69 17 121/60 100 10/19/16 00:09 10/19/16 00:09 10/19/16 00:09 10/19/16 00:09 10/19/16 00:09 - Laboratory Result Diagrams: 10/18/16 20:25 10/18/16 20:25 Laboratory results interpreted by me: 10/18/16 10/18/16 10/18/16 20:25 20:25 20:40 RBC 2.75 L Hgb 7.6 L Hct 23.0 L RDW 15.8 H Monocytes % 16.8 H Creatinine 0.50 L Alkaline Phosphatase 170 H Urine Urobilinogen 2.0 H - EKG Interpretation by Pa EKG shows normal: Sinus rhythm Rate: Normal Rhythm: NSR Discharge - Discharge Clinical Impression: Acute psychosis Anemia Qualifiers: Anemia type: unspecified type Qualified Code(s): D64.9 - Anemia, unspecified Condition: Fair Disposition: ADMITTED OBSERVATION Admitting Provider: [facility] Unit Admitted: Telemetry
[2016-10-18 21:10] LABS: ABSOLUTE BASOPHILS # (AUTO) 0.1 10^3/uL (0.0-0.2); ABSOLUTE LYMPHOCYTES (AUTO) 1.4 10^3/uL (0.5-4.7); ABSOLUTE MONOCYTES (AUTO) 1.2 10^3/uL (0.1-1.4); ABSOLUTE NEUT (AUTO) 4.2 10^3/uL (1.7-8.2); BASOPHILS % (AUTO) 1.1 % (0-2); HGB HCT DIFFERENCE -0.2; LYMPHOCYTES % (AUTO) 20.7 % (13-45); MEAN CORPUSCULAR HEMOGLOBIN 27.6 pg (27.0-33.4); MEAN CORPUSCULAR HGB CONC 32.9 g/dL (32.0-36.0); MEAN CORPUSCULAR VOLUME 84 fl (80-97); MONOCYTES % (AUTO) 16.8 % (3-13); RED BLOOD COUNT 2.75 10^6/uL (3.72-5.28); RED CELL DISTRIBUTION WIDTH 15.8 % (11.5-14.0); SEGMENTED NEUTROPHILS % (AUTO) 61.4 % (42-78); WHITE BLOOD COUNT 6.9 10^3/uL (4.0-10.5)
[2016-10-18 21:22] LABS: HEMOGLOBIN 7.6 g/dL (12.0-15.5)
[2016-10-18 21:31] LABS: ALANINE AMINOTRANSFERASE 24 U/L (9-52); ALBUMIN 3.6 g/dL (3.5-5.0); ALKALINE PHOSPHATASE 170 U/L (38-126); ANION GAP 10 (5-19); ASPARTATE AMINO TRANSFERASE 18 U/L (14-36); BILIRUBIN,DIRECT 0.4 mg/dL (0.0-0.4); BILIRUBIN,TOTAL 0.7 mg/dL (0.2-1.3); BLOOD UREA NITROGEN 18 mg/dL (7-20); CALCIUM 9.2 mg/dL (8.4-10.2); CARBON DIOXIDE 25 mmol/L (22-30); CHLORIDE 103 mmol/L (98-107); CREATINE KINASE 113 U/L (30-135); GLUCOSE 91 mg/dL (75-110); POTASSIUM 3.7 mmol/L (3.6-5.0); SODIUM 137.6 mmol/L (137-145)
[2016-10-18 21:41] LABS: CREATINE KINASE MB 1.86 ng/mL (<4.55)
[2016-10-18 21:42] LABS: TROPONIN I < 0.012 ng/mL
[2016-10-18 21:56] LABS: APPEARANCE,URINE CLEAR; BILIRUBIN,URINE NEGATIVE (NEGATIVE); GLUCOSE, URINE NEGATIVE (NEGATIVE); KETONES,URINE NEGATIVE (NEGATIVE); LEUKOCYTE ESTERASE,URINE NEGATIVE (NEGATIVE); NITRITE,URINE NEGATIVE (NEGATIVE); PROTEIN,URINE NEGATIVE (NEGATIVE); URINE SPECIFIC GRAVITY 1.015
[2016-10-18 22:11] LABS: URINE BARBITURATES SCREEN NEGATIVE; URINE METHADONE SCREEN NEGATIVE; URINE OPIATES LOW NEGATIVE; URINE PHENCYCLIDINE SCREEN NEGATIVE
--- NOTE | 2016-10-18 22:12 | EKG REPORT ---
SEVERITY:- ABNORMAL ECG - SINUS RHYTHM NONSPECIFIC T ABNORMALITIES, ANTERIOR LEADS : Confirmed by: Lara Ness MD 18-Oct-2016 22:11:26
[2016-10-19] MEDS ORDERED: NORMAL SALINE 250 ML IV PRN (00:40)
[2016-10-19] MEDS ORDERED: LORAZEPAM INJ 2 MG/1 ML VIAL IV PRN (20:36)
[2016-10-19] MEDS ORDERED: LORAZEPAM 1 MG TABLET PO PRN (20:37)
[2016-10-19] MEDS ORDERED: CALCIUM CARBONATE 500 MG TAB.CHEW PO PRN (20:37)
[2016-10-20 00:52] VITALS: BP 157/78
[2016-10-20] MEDS: DOCUSATE SODIUM 100 MG CAPSULE PO SCH ×2 (02:04→22:15)
[2016-10-20] MEDS: DIVALPROEX SODIUM 250 MG TABLET.DR PO SCH ×2 (02:04→22:15)
[2016-10-20] MEDS: ACETAMINOPHEN 325 MG TABLET PO SCH ×4 (02:04→22:15)
[2016-10-20] MEDS: LORAZEPAM INJ 2 MG/1 ML VIAL IM PRN (09:00)
[2016-10-20] MEDS ORDERED: BISACODYL 5 MG TABEC PO SCH (10:00)
[2016-10-20 12:16] LABS: ABSOLUTE BASOPHILS # (AUTO) 0.1 10^3/uL (0.0-0.2); ABSOLUTE LYMPHOCYTES (AUTO) 1.9 10^3/uL (0.5-4.7); ABSOLUTE NEUT (AUTO) 3.3 10^3/uL (1.7-8.2); BASOPHILS % (AUTO) 1.3 % (0-2); HEMATOCRIT 28.3 % (36.0-47.0); HEMOGLOBIN 9.4 g/dL (12.0-15.5); HGB HCT DIFFERENCE -0.1; LYMPHOCYTES % (AUTO) 30.1 % (13-45); MEAN CORPUSCULAR HEMOGLOBIN 27.4 pg (27.0-33.4); MEAN CORPUSCULAR HGB CONC 33.3 g/dL (32.0-36.0); MEAN CORPUSCULAR VOLUME 82 fl (80-97); MONOCYTES % (AUTO) 15.4 % (3-13); RED BLOOD COUNT 3.43 10^6/uL (3.72-5.28); RED CELL DISTRIBUTION WIDTH 15.7 % (11.5-14.0); SEGMENTED NEUTROPHILS % (AUTO) 53.2 % (42-78); WHITE BLOOD COUNT 6.2 10^3/uL (4.0-10.5)
[2016-10-20 12:55] LABS: ALANINE AMINOTRANSFERASE 22 U/L (9-52); ALBUMIN 3.6 g/dL (3.5-5.0); ALKALINE PHOSPHATASE 159 U/L (38-126); ANION GAP 10 (5-19); ASPARTATE AMINO TRANSFERASE 17 U/L (14-36); BILIRUBIN,DIRECT 0.2 mg/dL (0.0-0.4); BILIRUBIN,TOTAL 0.4 mg/dL (0.2-1.3); BLOOD UREA NITROGEN 15 mg/dL (7-20); CALCIUM 8.9 mg/dL (8.4-10.2); CARBON DIOXIDE 26 mmol/L (22-30); CHLORIDE 102 mmol/L (98-107); CREATININE RESULT 0.51 mg/dL (0.52-1.25); GLUCOSE 98 mg/dL (75-110); POTASSIUM 4.1 mmol/L (3.6-5.0); SODIUM 138.2 mmol/L (137-145); TOTAL PROTEIN 6.7 g/dL (6.3-8.2)
--- NOTE | 2016-10-20 20:53 | PDOC H&P ---
History of Present Illness Admission Date/PCP: 10/19/16 01:50 History of Present Illness: VALERY SORIA is a 60 year old female with history of schizophrenia she was sent to the ED for abnormal behavior she was found to be anemic, no history could be obtained from this patient Past Medical History Neurological Medical History: Reports: Seizures Skin Medical History: Reports: Eczema Psychiatric Medical History: Reports: Schizoaffective Disorder Past Surgical History Past Surgical History: Reports: Orthopedic Surgery - right index amputation, left index area removal Social History Smoking Status: Unknown if Ever Smoked Hx Recreational Drug Use: No Drugs: None Hx Prescription Drug Abuse: No Family History Family History: Reviewed & Not Pertinent Parental Family History Reviewed: Yes Children Family History Reviewed: Yes Sibling(s) Family History Reviewed.: Yes Medication/Allergy Home Medications: Haloperidol [Haldol 5 mg Tablet] 5 mg PO BID 11/16/13 Ibuprofen [Motrin 600 Mg Tablet] 600 mg PO TID #30 tablet 03/29/15 Acetaminophen 650 mg PO Q8 10/20/16 Bisacodyl [Dulcolax 5 mg Tablet] 10 mg PO Q2DAYS 10/20/16 Calcium Carbonate [Tums Chewable 500 mg Tab.chew] 500 mg PO Q4HP PRN 10/20/16 Calcium Carbonate/Vitamin D3 [Calcium 500 mg Chewable Tablet] 500 mg PO DAILY Divalproex Sodium 250 mg PO BID 10/20/16 Docusate Sodium [Colace 100 mg Capsule] 100 mg PO QHS 10/20/16 Multivitamin [Daily Multiple Vitamin] 1 tab PO DAILY 10/20/16 Nystatin/Dexameth/Diphen [Magic Mouthwash] 5 ml PO MEALS 10/20/16 Allergies/Adverse Reactions: Benzodiazepines Adverse Reaction (Verified 07/31/16 11:29) anti-psychotics Adverse Reaction (Uncoded 07/29/16 16:14) Abnormal behavior Review of Systems ROS unobtainable: Due to mental status Ears: ABSENT: hearing changes Musculoskeletal: ABSENT: joint swelling Physical Exam Vital Signs: Temp Pulse Resp BP Pulse Ox 98.2 F 76 18 157/78 H 100 10/20/16 12:36 10/20/16 12:36 10/20/16 12:36 10/19/16 23:00 10/20/16 12:36 Intake & Output 10/19/16 10/20/1610/21/17 06:59 06:59 06:59 Intake Total 600 720 Balance 600 720 Weight 65 kg 65 kg General appearance: PRESENT: no acute distress, thin Eye exam: PRESENT: PERRLA Respiratory exam: PRESENT: clear to auscultation meera Cardiovascular exam: PRESENT: +S1, +S2 GI/Abdominal exam: PRESENT: soft Neurological exam: PRESENT: alert Results Laboratory Results: 10/20/16 12:00 10/20/16 12:00 10/20/16 10/20/16 12:00 12:00 WBC 6.2 RBC 3.43 L Hgb 9.4 L Hct 28.3 L MCV 82 MCH 27.4 MCHC 33.3 RDW 15.7 H Plt Count 286 Seg Neutrophils % 53.2 Lymphocytes % 30.1 Monocytes % 15.4 H Eosinophils % 0.0 Basophils % 1.3 Absolute Neutrophils 3.3 Absolute Lymphocytes 1.9 Absolute Monocytes 1.0 Absolute Eosinophils 0.0 Absolute Basophils 0.1 Sodium 138.2 Potassium 4.1 Chloride 102 Carbon Dioxide 26 Anion Gap 10 BUN 15 Creatinine 0.51 L Est GFR ( Amer) > 60 Est GFR (Non-Af Amer) > 60 Glucose 98 Calcium 8.9 Total Bilirubin 0.4 AST 17 ALT 22 Alkaline Phosphatase 159 H Total Protein 6.7 Albumin 3.6 Assessment & Plan - Diagnosis (1) Anemia Qualifiers: Anemia type: unspecified type Qualified Code(s): D64.9 - Anemia, unspecified Is this a current diagnosis for this admission?: YesPlan: she is admitted and transfuse with PRBC
--- NOTE | 2016-10-20 20:58 | PDOC TRANSFER SUMMARY ---
General - Admit/Disc Date/PCP Admission Date/Primary Care Provider: 10/19/16 01:50 Discharge Date: 10/20/16 - Discharge Diagnosis (1) Anemia Is this a current diagnosis for this admission?: Yes - Additional Information Home Medications: Haloperidol [Haldol 5 mg Tablet] 5 mg PO BID 11/16/13 Ibuprofen [Motrin 600 Mg Tablet] 600 mg PO TID #30 tablet 03/29/15 Acetaminophen 650 mg PO Q8 10/20/16 Bisacodyl [Dulcolax 5 mg Tablet] 10 mg PO Q2DAYS 10/20/16 Calcium Carbonate [Tums Chewable 500 mg Tab.chew] 500 mg PO Q4HP PRN 10/20/16 Calcium Carbonate/Vitamin D3 [Calcium 500 mg Chewable Tablet] 500 mg PO DAILY Divalproex Sodium 250 mg PO BID 10/20/16 Docusate Sodium [Colace 100 mg Capsule] 100 mg PO QHS 10/20/16 Multivitamin [Daily Multiple Vitamin] 1 tab PO DAILY 10/20/16 Nystatin/Dexameth/Diphen [Magic Mouthwash] 5 ml PO MEALS 10/20/16 History of Present Illness Admission Date/PCP: 10/19/16 01:50 History of Present Illness: VALERY SORIA is a 60 year old female with history of schizophrenia she was sent to the ED for abnormal behavior she was found to be anemic, no history could be obtained from this patient Hospital Course Hospital Course: Patient admitted with anemia, she was transfused with 2 units of packed red blood,post transfusion hemoglobin is 9 Physical Exam Vital Signs: Temp Pulse Resp BP Pulse Ox 98.2 F 76 18 157/78 H 100 10/20/16 12:36 10/20/16 12:36 10/20/16 12:36 10/19/16 23:00 10/20/16 12:36 Intake & Output 10/19/16 10/20/16 10/21/16 06:59 06:59 06:59 Intake Total 600 720 Balance 600 720 Weight 65 kg 65 kg General appearance: PRESENT: no acute distress Eye exam: PRESENT: PERRLA Cardiovascular exam: PRESENT: +S1, +S2 GI/Abdominal exam: PRESENT: soft Neurological exam: PRESENT: alert, CN II-XII grossly intact Results Laboratory Results: 10/20/16 12:00 10/20/16 12:00 10/20/16 10/20/16 12:00 12:00 WBC 6.2 RBC 3.43 L Hgb 9.4 L Hct 28.3 L MCV 82 MCH 27.4 MCHC 33.3 RDW 15.7 H Plt Count 286 Seg Neutrophils % 53.2 Lymphocytes % 30.1 Monocytes % 15.4 H Eosinophils % 0.0 Basophils % 1.3 Absolute Neutrophils 3.3 Absolute Lymphocytes 1.9 Absolute Monocytes 1.0 Absolute Eosinophils 0.0 Absolute Basophils 0.1 Sodium 138.2 Potassium 4.1 Chloride 102 Carbon Dioxide 26 Anion Gap 10 BUN 15 Creatinine 0.51 L Est GFR ( Amer) > 60 Est GFR (Non-Af Amer) > 60 Glucose 98 Calcium 8.9 Total Bilirubin 0.4 AST 17 ALT 22 Alkaline Phosphatase 159 H Total Protein 6.7 Albumin 3.6
[2016-10-21] MEDS: LORAZEPAM INJ 2 MG/1 ML VIAL IM PRN (05:33)
[2016-10-21] MEDS: ACETAMINOPHEN 325 MG TABLET PO SCH ×2 (05:35→18:20)
== END 2016-10-21 17:00 | disposition home health service (06) ==
LOC: ER 19:02 → EH 10-19 01:50 → 5 10-19 05:05
PROVIDERS: ADMIT Internal Medicine; ATTEND Internal Medicine
PROC: 30230N1 Transfusion of Nonautologous Red Blood Cells into Peripheral Vein, Open Approach (ICD-10-PCS; principal; 2016-10-19)
DX: D64.9 Anemia, unspecified (principal); F25.9 Schizoaffective disorder, unspecified; Z79.899 Other long term (current) drug therapy
CPT/HCPCS: 93005; 99285; 96372; 86900; 86901; 36415 ×3; 87040; 87086; 82553; 36430; 86850; 82550; 85025 ×2; 82272; 80053 ×2; 81001; 84484; 80307; 86920; 93010; G0378 ×3; P9016; A9270 ×2; J2060 ×3; 80164; J0515; J1200; J2794; J3490

== ENCOUNTER 2016-10-21 17:44 | Emergency (ER) | payer MEDICARE, MEDICAID ==
[~2016-10-21 17:44] MED LIST: DIVALPROEX SODIUM 125 MG CAP.SPRINK PO SCH
--- NOTE | 2016-10-21 18:09 | ER Document Report ---
ED General - General Stated Complaint: PSYCH EVAL Time Seen by Provider: 10/21/16 18:04 Mode of Arrival: Stretcher Information source: Transfer Record TRAVEL OUTSIDE OF THE [place] IN LAST 30 DAYS: No - HPI Patient complains to provider of: Agitation, and combative behavior is Onset: Just prior to arrival Onset/Duration: Intermittent, Waxing and waning Quality of pain: No pain Associated symptoms: None Exacerbated by: Denies Relieved by: Denies Similar symptoms previously: Yes Recently seen / treated by doctor: Yes Notes: Patient is a 60-year-old female sent from [facility] for complaints of agitation and combative behavior, uncooperative facility, patient has a history of similar symptoms and has been seen in the emergency room recently for these complaints, patient has a history of dementia and is unable to provide any further details of condition - Related Data Allergies/Adverse Reactions: Benzodiazepines Adverse Reaction (Verified 07/31/16 11:29) anti-psychotics Adverse Reaction (Uncoded 07/29/16 16:14) Abnormal behavior Past Medical History - General Information source: Transfer Record - Social History Smoking Status: Unknown if Ever Smoked Family History: Reviewed & Not Pertinent - Past Medical History Cardiac Medical History: Reports: Hx Coronary Artery Disease, Hx Hypercholesterolemia, Hx Hypertension Denies: Hx Heart Attack Pulmonary Medical History: Denies: Hx Asthma, Hx Bronchitis, Hx COPD, Hx Pneumonia Neurological Medical History: Reports: Hx Seizures Renal/ Medical History: Denies: Hx Peritoneal Dialysis Musculoskeltal Medical History: Denies Hx Arthritis Skin Medical History: Reports Hx Eczema, Reports Hx MRSA Psychiatric Medical History: Reports: Hx Anxiety, Hx Dementia, Hx Obsessive Compulsive Disorder, Hx Schizoaffective Disorder, 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 Past Surgical History: Reports: Hx Orthopedic Surgery - right index amputation, left index area removal - Immunizations Hx Diphtheria, Pertussis, Tetanus Vaccination: Yes Review of Systems - Review of Systems -: Yes ROS unobtainable due to patient's medical condition Physical Exam - Vital signs Vitals: Pulse Resp BP 92 32 H 144/90 H 10/22/16 00:53 10/22/16 00:53 10/22/16 00:53 Interpretation: Normal - General General appearance: Alert In distress: None - HEENT Head: Normocephalic, Atraumatic Eyes: Normal Pupils: PERRL - Respiratory Respiratory status: No respiratory distress Chest status: Nontender Breath sounds: Normal Chest palpation: Normal - Cardiovascular Rhythm: Regular Heart sounds: Normal auscultation Murmur: No - Abdominal Inspection: Normal Distension: No distension Bowel sounds: Normal Tenderness: Nontender Organomegaly: No organomegaly - Back Back: Normal, Nontender - Extremities General upper extremity: Normal inspection, Normal ROM, Normal temperature General lower extremity: Normal inspection, Normal ROM, Normal temperature. No : Shannan's sign - Neurological [place] Coma Scale Eye Opening: Spontaneous Derian Coma Scale Verbal: Inappropriate [place] Coma Scale Motor: Withdraws to Pain [place] Coma Scale Total: 11 Motor strength normal: LUE, RUE, LLE, RLE Sensory: Normal - Psychological Associated symptoms: Agitated - Skin Skin Temperature: Warm Skin Moisture: Dry Skin Color: Normal Course - Re-evaluation Re-evalutation: 10/22/16 02:52 Patient is well known to the mental health providers, they recommend that she does not receive any further benzodiazepines or antipsychotics, however it is recommended that she receive her Depakote 250 mg BID, as well as clonidine 0.2 mg Q8 PRN, and clonidine 0.1 mg QHS, patient has been uncooperative, combative, violent towards nursing staff, requiring 4 point restraints, as well as medication to help sedate her, mental health team reports that they will attempt to get patient placed in an appropriate facility in the morning, and she does not appear to be appropriate to be discharged back to [facility] at this time, patient is otherwise medically cleared for transfer or discharge - Vital Signs Vital signs: Temp Pulse Resp BP Pulse Ox 92 32 H 144/90 H 10/22/16 00:53 10/22/16 00:53 10/22/16 00:53 - Laboratory Result Diagrams: 10/21/16 21:55 10/21/16 21:55 Laboratory results interpreted by me: 10/21/16 10/21/16 10/21/16 21:55 21:55 23:10 WBC 14.2 H D RBC 3.43 L Hgb 9.3 L Hct 28.6 L RDW 15.6 H Absolute Neutrophils 8.8 H Absolute Monocytes 1.8 H BUN 22 H Alkaline Phosphatase 183 H Urine Urobilinogen 2.0 H Ur Leukocyte Esterase TRACE H Salicylates < 1.0 L Acetaminophen < 10 L Discharge - Discharge Clinical Impression: Acute psychosis Altered mental status Qualifiers: Altered mental status type: unspecified Qualified Code(s): R41.82 - Altered mental status, unspecified Condition: Stable Disposition: PSYCH HOSP/UNIT
[2016-10-21] MEDS ORDERED: CLONIDINE HCL 0.2 MG TABLET PO SCH (18:30)
[2016-10-21] MEDS ORDERED: DIVALPROEX SODIUM 125 MG CAP.SPRINK PO SCH (18:45)
[2016-10-21] MEDS ORDERED: DIVALPROEX SODIUM 250 MG TAB.SR.24H PO SCH (19:00)
[2016-10-21] MEDS ORDERED: DIVALPROEX SODIUM 125 MG CAP.SPRINK PO ONE (19:00)
[2016-10-21] MEDS ORDERED: CLONIDINE HCL 0.2 MG TABLET PO ONE (19:00)
[2016-10-21] MEDS ORDERED: RISPERIDONE MICROSPHERES 25 MG/2 ML IM ONE (20:07)
[2016-10-21] MEDS: CLONIDINE HCL 0.1 MG TABLET PO PRN (22:00)
[2016-10-21 22:28] LABS: ABSOLUTE BASOPHILS # (AUTO) 0.1 10^3/uL (0.0-0.2); ABSOLUTE LYMPHOCYTES (AUTO) 3.4 10^3/uL (0.5-4.7); ABSOLUTE MONOCYTES (AUTO) 1.8 10^3/uL (0.1-1.4); ABSOLUTE NEUT (AUTO) 8.8 10^3/uL (1.7-8.2); EOSINOPHILS % (AUTO) 0.1 % (0-6); HEMATOCRIT 28.6 % (36.0-47.0); HEMOGLOBIN 9.3 g/dL (12.0-15.5); HGB HCT DIFFERENCE -0.7; LYMPHOCYTES % (AUTO) 24.1 % (13-45); MEAN CORPUSCULAR HEMOGLOBIN 27.2 pg (27.0-33.4); MEAN CORPUSCULAR HGB CONC 32.6 g/dL (32.0-36.0); MEAN CORPUSCULAR VOLUME 83 fl (80-97); MONOCYTES % (AUTO) 12.9 % (3-13); RED BLOOD COUNT 3.43 10^6/uL (3.72-5.28); RED CELL DISTRIBUTION WIDTH 15.6 % (11.5-14.0); SEGMENTED NEUTROPHILS % (AUTO) 61.9 % (42-78)
[2016-10-21 22:34] LABS: ALANINE AMINOTRANSFERASE 22 U/L (9-52); ALBUMIN 3.9 g/dL (3.5-5.0); ALKALINE PHOSPHATASE 183 U/L (38-126); ANION GAP 14 (5-19); ASPARTATE AMINO TRANSFERASE 17 U/L (14-36); BILIRUBIN,DIRECT 0.3 mg/dL (0.0-0.4); BILIRUBIN,TOTAL 0.3 mg/dL (0.2-1.3); BLOOD UREA NITROGEN 22 mg/dL (7-20); CALCIUM 9.2 mg/dL (8.4-10.2); CARBON DIOXIDE 27 mmol/L (22-30); CHLORIDE 98 mmol/L (98-107); CREATININE RESULT 0.63 mg/dL (0.52-1.25); GLUCOSE 98 mg/dL (75-110); POTASSIUM 4.1 mmol/L (3.6-5.0); SODIUM 138.7 mmol/L (137-145)
[2016-10-21 22:38] LABS: ALCOHOL < 10 mg/dL (NONE DETECTED)
[2016-10-21 22:44] LABS: WHITE BLOOD COUNT 14.2 10^3/uL (4.0-10.5)
[2016-10-21 23:36] LABS: APPEARANCE,URINE CLEAR; BILIRUBIN,URINE NEGATIVE (NEGATIVE); GLUCOSE, URINE NEGATIVE (NEGATIVE); KETONES,URINE NEGATIVE (NEGATIVE); LEUKOCYTE ESTERASE,URINE TRACE (NEGATIVE); NITRITE,URINE NEGATIVE (NEGATIVE); PROTEIN,URINE NEGATIVE (NEGATIVE); URINE SPECIFIC GRAVITY 1.018
[2016-10-21 23:52] LABS: URINE BARBITURATES SCREEN NEGATIVE; URINE METHADONE SCREEN NEGATIVE; URINE OPIATES LOW NEGATIVE; URINE PHENCYCLIDINE SCREEN NEGATIVE
[2016-10-22] MEDS ORDERED: DIPHENHYDRAMINE HCL 50 MG/ML VIAL IM ONE ×2 (02:59→06:37)
--- NOTE | 2016-10-22 06:39 | ER Document Report ---
Doctor's Note Notes: 10/22/16 06:38 Asked by nurse to see patient at bedside history of bipolar schizophrenia agitation recent admission filled at facility no psychiatric note on this visit but delaying getting Depakote yesterday. They medicate her last evening with Depakote and Benadryl. Very agitated aggressive and by history is a Chi. On physical examination she is alert she is rambling with no clear stream of consciousness. She is in 4 point restraints which are appropriate at this point. I am going give her a IM dose of Benadryl which seemed to help her last evening. And discussed reasons for ED return sooner
[2016-10-22] MEDS: CLONIDINE HCL 0.1 MG TABLET PO PRN (06:53)
--- NOTE | 2016-10-22 09:52 | PSYCHOLOGICAL NOTE ---
Psych Note - Psych Note Psych Note: Patient is a 60-year-old female sent from [facility] for complaints of agitation and combative behavior, uncooperative facility, patient has a history of similar symptoms and has been seen in the emergency room recently for these complaints, patient has a history of dementia and is unable to provide any further details of condition Patient has been seen multiple time by this Behavioral Health staff; As noted on 08/17/2016 Review: Reviewed Patient's chart dating back to 2010. Patient has a reported positive history for Schizophrenia according to records. A head CT scan from revealed perivascular space in the lateral right basal ganglia vs old lacunar infarct. Head CT from 03/20/2015 revealed prominent ventricles, low area density in the white matter due to chronic microvascular changes and mild age-related involutional changes in the extraaxial spaces. Subsequent scans are consistent with previous scans. Review of Patient's most current stay reveals extreme restlessness, response to auditory / visual hallucinations, impaired speech, altered mental status, refusal to eat or take oral medications intermittently, and requirement of 4-point soft restraints Multiple psychiatric evaluations and medication recommendations have been completed, but Patient continues to refuse oral intake. Psychiatric consultation reveals attempts for psychiatric placement but denial secondary to acuity and "medical" instability. Collateral information gained from family reveals that Patient's current presentation is significantly different than her typical baseline, and Patient had not been taking medications for her mental health for several years fairly successfully. Given the information reviewed and considered, Patient's symptomatology and current presentation is most consistent with vascular dementia. Head CT's revealed neurovascular processes impacting the white matter, and the ongoing hallucinations, impaired speech, restlessness and refusal to eat suggest subcortical involvement. Her speech is observed to be nonsensical in terms of formulation of words vs. disorganized speech. Schizophrenia would evidence disorganized speech, hallucinations, avolition, diminished emotional expression , and / or grossly disorganized behavior. Major Neurocognitive Vascular Disorder disorder with behavioral disturbance is characterized by others indicating a substantial decline incognitive function (i.e.daughter), substantial impairment in cognitive performance, inability to perform activities of daily living, cognitive disturbance accompanied by clinically significant behavioral disturbance (i.e. psychotic symptoms, mood disturbance, agitation, etc.), full dependence on others for activities of daily living ( severe), evidence of cerebrovascular disease such as neuroimaging (cerebral atophy, prominent ventricles, subcortical white matter microvascular ischemic disease, perivascular space in the lateral right basal ganglia vs old lacunar infarct (more likely) and medical diseases such as hypertension, diabetes, hyperlipidemia , decline in complex attention, processing speed, and frontal- executive function. Consultation with Neuropsychiatrist: Patient's case was staffed with [facility] contracted Neuropsychiatrist and he indicated that given the Patient's behavior and cognitive status significantly declined following the administration of antipsychotic and benzodiazepine medication, the above listed patient engaged behaviors, and medical history, the Patient is most likely experiencing a Major Neurocognitive Vascular Disorder with Behavioral Disturbance (i.e. Vascular Dementia). He stated since the Patient is refusing oral intake including medications and remains agitated, the provision of psychotropic medications will not be helpful and at this juncture, cannot be administered since the prescribed medications (i.e. Buspar, Depakote, Risperdal) are not supplied in IM form. He related that until the Patient begins to receive nutrition, she is unlikely to cognitively clear enough to consent to medical treatment. He stated the Patient's case is not considered psychiatric in nature at this time, as Dementia is a medical diagnosis requiring medical intervention in this particular case. In summary, Patient is not appropriate for inpatient psychiatric care as her presentation is consistent with Vascular Dementia, and this time, requiring a higher level of residential care such as a SNF. She is also felt to be in need of a guardian to make decisions on her behalf for medical, legal, financial, and personal matters. Patient has been denied from psychiatric facilities due to "medical" acuity, thus, closing the door on that option. As stated, psychiatric inpatient is not considered appropriate for this Patient given the medical nature and course of her illness. Psychotropic medications at this juncture, given her refusal for oral intake, are not likely to be helpful in stabilizing the Patient. Antipsychotic and Benzodiazepine medications are considered contraindicated for her condition and felt to place her at greater risk for behavioral dysregulation. A brain MRI is supported (Dr. Carrillo already has one ordered) if Patient is able to remain still enough for such process. It may be helpful to seek input from neurology given the neurodegenerative process occurring within her brain and subsequent behaviors as a result. 1. 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 This has been an issue in the past which causes the patient to decline. As stated, psychiatric inpatient is not considered appropriate for this Patient given the medical nature and course of her neurocognitive disease. Requests will be submitted to appropriate facilities that provide care for both psychiatric and dementia patients; if unsuccessful, on the patient is considered at her baseline, the patient is recommended to turn to her facility and follow up with her primary care physician for ongoing care and treatment.
[2016-10-22] MEDS ORDERED: DIVALPROEX SODIUM 125 MG CAP.SPRINK PO SCH (10:00)
--- NOTE | 2016-10-22 10:31 | ER Document Report ---
Doctor's Note Notes: 10/22/16 10:30 I have evaluated this pt this am and she is combative and in 4-point restraints. Her physical exam is otherwise normal and and she is awaitng disposition per mental health.
[2016-10-22] MEDS: CLONIDINE HCL 0.2 MG TABLET PO SCH ×2 (11:12→16:34)
[2016-10-22] MEDS: CARBAMAZEPINE SUSP 200 MG/10 ML UDCUP PO SCH (16:33)
[2016-10-22] MEDS: BENZTROPINE MESYLATE 1 MG TABLET PO SCH (16:34)
[2016-10-23 08:24] VITALS: BP 119/68
--- NOTE | 2016-10-23 09:52 | ER Document Report ---
Doctor's Note Notes: 10/23/16 09:50 Pt intermittently agitated overnight. Calm this morning. Otherwise normal exam. Awaiting disposition from Mental Health.
[2016-10-23] MEDS: CLONIDINE HCL 0.2 MG TABLET PO SCH ×2 (10:45→22:00)
[2016-10-23] MEDS: BENZTROPINE MESYLATE 1 MG TABLET PO SCH ×2 (10:45→22:00)
[2016-10-23] MEDS: CARBAMAZEPINE SUSP 200 MG/10 ML UDCUP PO SCH ×2 (11:15→22:00)
--- NOTE | 2016-10-23 11:49 | PSYCHOLOGICAL NOTE ---
Psych Note - Psych Note Psych Note: Patient is a 60 year old female at [facility]. Patient presented from [facility] due to noncompliance with staff, aggression, and noncompliance with medications. Patient has been evaluated and at this time, her presentation is considered medical in nature, and overall most congruent with a neurocognitive process, such as Vascular Dementia. Attempted to engage patient in conversation today to assess for any progress and or change in mental status and she was unable to appropriately engage. Patient presented with rapid and nonsensical speech, and was observed sitting on her bed talking with no one else in the room. Patient's father, Hernan Viveros presented and inquired into patient's status. Father advised that there was little information that could be provided due to HIPPA. Father disclosed that a few years ago the patient was sent to a psychiatric facility, and they helped regulate her medications. Otherwise, stated that patient's sister is the one who oversees her care. Contact information was provided for Shu Crowe . Discussed the care and management of this patient with Dr. Alvarado. Patient is recommended for discharge from psych services as her presentation is considered medical in nature (likely vascular dementia). As noted in earlier reports by Dr. Alvarado, "Given the information reviewed and considered, Patient's symptomatology and current presentation is most consistent with vascular dementia. Head CT's revealed neurovascular processes impacting the white matter , and the ongoing hallucinations, impaired speech, restlessness and refusal to eat suggest subcortical involvement. Her speech is observed to be nonsensical in terms of formulation of words vs. disorganized speech. Schizophrenia would evidence disorganized speech, hallucinations, avolition, diminished emotional expression, and / or grossly disorganized behavior. Major Neurocognitive Vascular Disorder disorder with behavioral disturbance is characterized by others indicating a substantial decline in cognitive function (i.e.daughter), substantial impairment in cognitive performance, inability to perform activities of daily living, cognitive disturbance accompanied by clinically significant behavioral disturbance (i.e. psychotic symptoms, mood disturbance, agitation, etc.), full dependence on others for activities of daily living ( severe), evidence of cerebrovascular disease such as neuroimaging (cerebral atophy, prominent ventricles, subcortical white matter microvascular ischemic disease, perivascular space in the lateral right basal ganglia vs old lacunar infarct (more likely) and medical diseases such as hypertension, diabetes, hyperlipidemia , decline in complex attention, processing speed, and frontal- executive function." 1. 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 Schizophrenia, per history Discussed plan of care with MD, who has agreed to request a discharge planning consultation.
[2016-10-23] MEDS ORDERED: BENZTROPINE MESYLATE INJ 2 MG/2 ML AMPULE IM ONE (21:30)
--- NOTE | 2016-10-24 11:40 | ER Document Report ---
Doctor's Note Notes: 10/24/16 11:39 I have evaluated this patient this am and has no c/o at this time. Pt still intermittently agitated, but cooperative. Awaiting dispositon per mental health.
[2016-10-24] MEDS: CLONIDINE HCL 0.2 MG TABLET PO SCH (11:47)
[2016-10-24] MEDS: BENZTROPINE MESYLATE 1 MG TABLET PO SCH (11:47)
[2016-10-24] MEDS: CARBAMAZEPINE SUSP 200 MG/10 ML UDCUP PO SCH (11:47)
== END 2016-10-24 23:14 ==
LOC: ER 17:44
DX: F23 Brief psychotic disorder (principal); R41.82 Altered mental status, unspecified; F20.9 Schizophrenia, unspecified; F01.50 Vascular dementia, unspecified severity, without behavioral disturbance, psychotic disturbance, mood disturbance, and anxiety; R45.1 Restlessness and agitation; Z78.1 Physical restraint status; I25.10 Atherosclerotic heart disease of native coronary artery without angina pectoris; E78.00 Pure hypercholesterolemia, unspecified; I10 Essential (primary) hypertension; Z86.14 Personal history of Methicillin resistant Staphylococcus aureus infection
CPT/HCPCS: 99285; 96372; 36415; 80307 ×4; 82550; 85025; 80053; 81001; 80164; A9270 ×5; J0515; J1200; J2794; J3490 ×4

== ENCOUNTER 2017-01-21 20:25 | Emergency (ER) | payer MEDICARE, OTHER, MEDICAID ==
[2017-01-21 20:53] LABS: ABSOLUTE BASOPHILS # (AUTO) 0.1 10^3/uL (0.0-0.2); ABSOLUTE LYMPHOCYTES (AUTO) 2.4 10^3/uL (0.5-4.7); ABSOLUTE MONOCYTES (AUTO) 1.1 10^3/uL (0.1-1.4); ABSOLUTE NEUT (AUTO) 5.1 10^3/uL (1.7-8.2); HEMATOCRIT 28.5 % (36.0-47.0); HEMOGLOBIN 9.5 g/dL (12.0-15.5); LYMPHOCYTES % (AUTO) 27.8 % (13-45); MEAN CORPUSCULAR HEMOGLOBIN 28.5 pg (27.0-33.4); MEAN CORPUSCULAR HGB CONC 33.5 g/dL (32.0-36.0); MEAN CORPUSCULAR VOLUME 85 fl (80-97); MONOCYTES % (AUTO) 12.9 % (3-13); RED BLOOD COUNT 3.35 10^6/uL (3.72-5.28); RED CELL DISTRIBUTION WIDTH 15.6 % (11.5-14.0); SEGMENTED NEUTROPHILS % (AUTO) 58.3 % (42-78); WHITE BLOOD COUNT 8.7 10^3/uL (4.0-10.5)
--- NOTE | 2017-01-21 21:05 | ER Document Report ---
ED General - General Chief Complaint: Altered Mental Status Stated Complaint: ALTERED MENTAL STATUS Time Seen by Provider: 01/21/17 20:43 TRAVEL OUTSIDE OF THE [place] IN LAST 30 DAYS: No - HPI Notes: Patient with a h/o schizophrenia and dementia presents to the ED via EMS with the report of AMS and "not acting like herself." Report from EMS/Facility stated that she was not as talkative as she normally is and was trying to use the couch as a toilet. She was brought to the ED for further evaluation. Pt is a poor historian but did state that "I am feeling much better." Pt was ambulatory on scene. The nurse in the ED stated that she knew her name and age and was communicating; although, some of her statements were not on topic. Pt does not complain of any pain or discomfort at this time. Her PCM is Dr. Malave. - Related Data Allergies/Adverse Reactions: Benzodiazepines Adverse Reaction (Verified 01/21/17 21:02) anti-psychotics Adverse Reaction (Uncoded 01/21/17 21:02) Abnormal behavior Past Medical History - General Information source: Patient Cannot obtain history due to: Dementia - Social History Smoking Status: Unknown if Ever Smoked Family History: Reviewed & Not Pertinent - Past Medical History Cardiac Medical History: Reports: Hx Coronary Artery Disease, Hx Hypercholesterolemia, Hx Hypertension Denies: Hx Heart Attack Pulmonary Medical History: Denies: Hx Asthma, Hx Bronchitis, Hx COPD, Hx Pneumonia Neurological Medical History: Reports: Hx Seizures Renal/ Medical History: Denies: Hx Peritoneal Dialysis Musculoskeltal Medical History: Denies Hx Arthritis Skin Medical History: Reports Hx Eczema, Reports Hx MRSA Psychiatric Medical History: Reports: Hx Anxiety, Hx Dementia, Hx Obsessive Compulsive Disorder, Hx Schizoaffective Disorder, 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 Limited interview. -: Yes ROS unobtainable due to patient's medical condition Physical Exam - Vital signs Vitals: BP Pulse Ox 119/70 98 01/21/17 20:28 01/21/17 20:28 Notes: PHYSICAL EXAMINATION: GENERAL: Well-appearing, well-nourished and in no acute distress. Alert and talkative; although, most statements are unclear and off topic. Pt knows she is in a hospital. HEAD: Atraumatic, normocephalic. Non-tender. EYES: Pupils equal round and reactive to light, extraocular movements intact, sclera anicteric, conjunctiva are normal. ENT: EAC clear b/l. TM's intact b/l without erythema, fluid, or perforation. Nares patent and without discharge. oropharynx clear without exudates. No tonsilar hypertrophy or erythema. Moist mucous membranes. No sinus tenderness. NECK: Normal range of motion, supple without lymphadenopathy. No rigidity/ meningismus. LUNGS: Breath sounds clear to auscultation bilaterally and equal. No wheezes rales or rhonchi. HEART: Regular rate and rhythm without murmurs, rubs, gallops. ABDOMEN: Soft, nontender, nondistended abdomen. No guarding, no rebound. No masses appreciated. Normal bowel sounds present. No CVA tenderness bilaterally. Musculoskeletal: Ext b/l: FROM to passive/active. Strength 5+/5. No obvious focal deficit noted. Pt moving all 4 extremities without difficulty. Extremities: No cyanosis, clubbing, or edema b/l. Peripheral pulses 2+. Capillary refill less than 3 seconds. NEUROLOGICAL: Cranial nerves grossly intact. Normal sensory, motor exams PSYCH: Normal mood, normal affect. SKIN: Warm, Dry, normal turgor, no rashes or lesions noted. Course - Re-evaluation Re-evalutation: 01/21/17 22:07 Patient is an afebrile, well-hydrated, 61-year-old female who presents the ED with reported altered mental status. Vitals are stable. PE otherwise unremarkable for any focal neurological deficits at this time. CBC, CMP, urinalysis, EKG, chest x-ray were unremarkable for any acute pathology at this time. Low suspicion for any acute glaucoma, temporal arteritis, meningitis, intracranial hemorrhage, ischemic stroke, or fracture at this time. Patient is aware that his condition can change from initial presentation and that he needs to monitor symptoms closely for any acute changes. Conservative measures for symptoms with close monitoring recommended. Recheck with her PCM in 2-3 days. Return to the ED with any worsening/concerning symptoms otherwise as reviewed discharge. Patient is in agreement. reviewed case with Dr. Cai who is in agreement with discharge/plan. - Vital Signs Vital signs: Temp Pulse Resp BP Pulse Ox 18 119/70 97 01/21/17 22:00 01/21/17 20:28 01/21/17 22:00 - Laboratory Result Diagrams: 01/21/17 20:30 01/21/17 20:30 Laboratory results interpreted by me: 01/21/17 01/21/17 01/21/17 20:30 20:30 20:30 RBC 3.35 L Hgb 9.5 L Hct 28.5 L RDW 15.6 H BUN 27 H Glucose 120 H AST 13 L Creatine Kinase Total Protein 9.0 H Urine Protein 100 H Urine Urobilinogen 2.0 H Ur Leukocyte Esterase TRACE H Urine Ascorbic Acid 20 H 01/21/17 20:30 RBC Hgb Hct RDW BUN Glucose AST Creatine Kinase 22 L Total Protein Urine Protein Urine Urobilinogen Ur Leukocyte Esterase Urine Ascorbic Acid Discharge - Discharge Clinical Impression: Altered mental status, unspecified Qualifiers: Altered mental status type: unspecified Qualified Code(s): R41.82 - Altered mental status, unspecified Schizophrenia Qualifiers: Schizophrenia type: unspecified Qualified Code(s): F20.9 - Schizophrenia, unspecified Dementia Qualifiers: Dementia type: unspecified type Dementia behavioral disturbance: without behavioral disturbance Qualified Code(s): F03.90 - Unspecified dementia without behavioral disturbance Condition: Stable Disposition: HOME, SELF-CARE Instructions: Altered Mental Status ([facility]) Additional Instructions: Maintain adequate fluid and food intake Take medications at home as directed Monitor symptoms closely for any acute changes Recheck with your PCM in 2-3 days Return to the ED with any worsening symptoms and/or development of fever, changes in mentation/vision/behavior/speech, headache, chest pain, palpitations , syncope, shortness of breath, trouble breathing, abdominal pain, n/v/d, blood in stool/urine, loss of control of bowel/bladder, urinary retention, muscle weakness/paralysis, saddle anesthesia, numbness/tingling, or other worsening symptoms that are concerning to you. Referrals: JUAN M LE MD [Primary Care Provider] - 01/23/17
[2017-01-21 21:06] LABS: ALANINE AMINOTRANSFERASE 16 U/L (9-52); ALBUMIN 4.8 g/dL (3.5-5.0); ALKALINE PHOSPHATASE 76 U/L (38-126); ANION GAP 13 (5-19); APPEARANCE,URINE CLEAR; ASPARTATE AMINO TRANSFERASE 13 U/L (14-36); BILIRUBIN,DIRECT 0.4 mg/dL (0.0-0.4); BILIRUBIN,TOTAL 0.6 mg/dL (0.2-1.3); BILIRUBIN,URINE NEGATIVE (NEGATIVE); BLOOD UREA NITROGEN 27 mg/dL (7-20); CALCIUM 9.9 mg/dL (8.4-10.2); CARBON DIOXIDE 25 mmol/L (22-30); CHLORIDE 100 mmol/L (98-107); CREATININE RESULT 0.75 mg/dL (0.52-1.25); GLUCOSE 120 mg/dL (75-110); GLUCOSE, URINE NEGATIVE (NEGATIVE); KETONES,URINE NEGATIVE (NEGATIVE); LEUKOCYTE ESTERASE,URINE TRACE (NEGATIVE); MAGNESIUM 2.1 mg/dL (1.6-2.3); NITRITE,URINE NEGATIVE (NEGATIVE); POTASSIUM 3.6 mmol/L (3.6-5.0); PROTEIN,URINE 100 mg/dL (NEGATIVE); SODIUM 137.6 mmol/L (137-145); URINE SPECIFIC GRAVITY 1.027
[2017-01-21 21:29] LABS: TROPONIN I < 0.012 ng/mL
--- NOTE | 2017-01-21 21:31 | RADIOLOGY REPORT (SQ) ---
EXAM DESCRIPTION: CHEST SINGLE VIEW COMPLETED DATE/TIME: 01/21/2017 9:19 pm REASON FOR STUDY: AMS COMPARISON: 07/31/2016 EXAM PARAMETERS: NUMBER OF VIEWS: One view. TECHNIQUE: Single frontal radiographic view of the chest acquired. RADIATION DOSE: NA LIMITATIONS: None. FINDINGS: LUNGS AND PLEURA: No opacities, masses or pneumothorax. No pleural effusion. MEDIASTINUM AND HILAR STRUCTURES: No masses. Contour normal. HEART AND VASCULAR STRUCTURES: Heart normal in size. Normal vasculature. BONES: Old healed bilateral rib fractures. HARDWARE: None in the chest. OTHER: No other significant finding. IMPRESSION: NO ACUTE RADIOGRAPHIC FINDING IN THE CHEST. TECHNICAL DOCUMENTATION: JOB ID: [id number]
[2017-01-22 01:41] VITALS: BP 122/77
--- NOTE | 2017-01-22 07:43 | EKG REPORT ---
SEVERITY:- ABNORMAL ECG - A-FLUTTER W/ PREDOM 3:1 AV BLOCK, A-RATE 333 CANNOT RULE OUT BASELINE ARTEFACT WITH SINUS TACHYCARDIA . LVH : Confirmed by: Get Hand MD 22-Jan-2017 07:43:31
== END 2017-01-22 01:40 | disposition home or self-care (01) ==
LOC: ER 20:25
DX: R41.82 Altered mental status, unspecified (principal); F20.9 Schizophrenia, unspecified; F03.90 Unspecified dementia, unspecified severity, without behavioral disturbance, psychotic disturbance, mood disturbance, and anxiety
CPT/HCPCS: 36415; 71010; 80053; 81001; 82550; 82553; 83735; 84484; 85025; 93005; 93010; 99285

== ENCOUNTER 2019-04-22 19:24 | Emergency (ER) | payer MEDICARE, MEDICAID ==
--- NOTE | 2019-04-22 20:08 | ER Document Report ---
ED Medical Screen (RME) - General Stated Complaint: FALL,LEFT LEG PAIN,BACK PAIN Time Seen by Provider: 04/22/19 20:00 Primary Care Provider: JUAN M LE MD [Primary Care Provider] - Follow up as needed Mode of Arrival: Medic Information source: Patient, Emergency Med Personnel, Outside Facility Records Notes: This 63-year-old female presents from [facility] after a fall from the chair. Patient has hard cervical collar on. Complains of neck pain. Also complains of chest pain and left knee pain. Patient knows her name and birthdate confused as to where she lives. Unsure if this is normal for patient. No complaints of abdominal pain. EMS reports notes back pain and leg pain. Patient complains of chest pain. Denies pain with palpation to her chest reports her chest is hurting. I have greeted and performed a rapid initial assessment of this patient. A comprehensive ED assessment and evaluation of the patient, analysis of test results and completion of the medical decision making process will be conducted by additional ED providers. Dictation of this chart was performed using voice recognition software; therefore, there may be some unintended grammatical errors. TRAVEL OUTSIDE OF THE [place] IN LAST 30 DAYS: No - Related Data Allergies/Adverse Reactions: Benzodiazepines Adverse Reaction (Verified 01/21/17 21:02) anti-psychotics Adverse Reaction (Uncoded 01/21/17 21:02) Abnormal behavior Past Medical History - Past Medical History Cardiac Medical History: Reports: Hx Coronary Artery Disease, Hx Hypercholesterolemia, Hx Hypertension Denies: Hx Heart Attack Pulmonary Medical History: Denies: Hx Asthma, Hx Bronchitis, Hx COPD, Hx Pneumonia Neurological Medical History: Reports: Hx Seizures Renal/ Medical History: Denies: Hx Peritoneal Dialysis Musculoskeltal Medical History: Denies Hx Arthritis Skin Medical History: Reports Hx Eczema, Reports Hx MRSA Psychiatric Medical History: Reports: Hx Anxiety, Hx Dementia, Hx Obsessive Compulsive Disorder, Hx Schizoaffective Disorder, 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
--- NOTE | 2019-04-22 21:16 | RADIOLOGY REPORT (SQ) ---
EXAM DESCRIPTION: CT CERVICAL SPINE WITHOUT IV CONTRAST COMPLETED DATE/TME: 04/22/2019 20:04 CLINICAL HISTORY: 63 years, Female, fall pain COMPARISON: None. TECHNIQUE: Noncontrast CT of the cervical spine was acquired. Coronal and sagittal reformations were created. Images stored on PACS. All CT scanners at this facility use dose modulation, iterative reconstruction, and/or weight based dosing when appropriate to reduce radiation dose to as low as reasonably achievable (ALARA). [facility]: Dose Right [facility]: CareDose [facility]: Dose Right [facility]: Teradose 4D [facility]: [employer] LIMITATIONS: None. FINDINGS: Limited evaluation of the posterior fossa structures reveals no suspicious anomaly. Occipital condyles are normal. Lateral masses of C1 and C2 align properly. Base and tip of the dens are intact. Craniocervical alignment is maintained. Cervical vertebral body heights and alignments are maintained. Mild multilevel cervical spondylosis is evident, designated primarily by multilevel hypertrophic endplate spurring and facet hypertrophy. No definite acute fracture or malalignment is appreciated. Visualized lung apices are clear. Paravertebral soft tissues show no suspicious finding. However, there are calcifications about the bilateral carotid bulbs extending into the proximal ICAs. IMPRESSION: No acute fracture or malalignment. TECHNICAL DOCUMENTATION: Quality ID # 436: Final reports with documentation of one or more dose reduction techniques (e.g., Automated exposure control, adjustment of the mA and/or kV according to patient size, use of iterative reconstruction technique) copyright 2010 [employer]- All Rights Reserved
--- NOTE | 2019-04-22 21:19 | RADIOLOGY REPORT (SQ) ---
EXAM DESCRIPTION: XR CHEST 2 VIEWS COMPLETED DATE/TME: 04/22/2019 20:07 CLINICAL HISTORY: 63 years, Female, chest pain COMPARISON: Prior study from 01/21/2017 NUMBER OF VIEWS: Two TECHNIQUE: Frontal and lateral radiographs were obtained LIMITATIONS: None. FINDINGS: Cardiac and mediastinal contours are stable. Lungs are clear. No pleural effusion or pneumothorax. Old healed bilateral rib fracture deformities are noted. IMPRESSION: No acute disease. copyright 2010 [email or web address]- All Rights Reserved
--- NOTE | 2019-04-22 21:27 | RADIOLOGY REPORT (SQ) ---
XR KNEE 4 OR MORE VIEWS CLINICAL STATEMENT: fall pain COMPARISON: None FINDINGS: Bony alignment is anatomic. There is no fracture or dislocation. The soft tissues are unremarkable. Bones are osteopenic. IMPRESSION: No fracture.
[2019-04-22 22:23] LABS: ABSOLUTE LYMPHOCYTES (AUTO) 1.8 10^3/uL (0.5-4.7); ABSOLUTE MONOCYTES (AUTO) 0.7 10^3/uL (0.1-1.4); ABSOLUTE NEUT (AUTO) 3.5 10^3/uL (1.7-8.2); TOTAL CELLS COUNTED % (AUTO) 100 %
[2019-04-22 22:29] LABS: BASOPHILS % (AUTO) 0.2 % (0-2); HEMATOCRIT 32.8 % (36.0-47.0); LYMPHOCYTES % (AUTO) 29.5 % (13-45); MEAN CORPUSCULAR HEMOGLOBIN 27.5 pg (27.0-33.4); MEAN CORPUSCULAR HGB CONC 33.5 g/dL (32.0-36.0); MEAN CORPUSCULAR VOLUME 82 fl (80-97); MONOCYTES % (AUTO) 12.1 % (3-13); PLATELET COUNT 219 10^3/uL (150-450); RED BLOOD COUNT 3.99 10^6/uL (3.72-5.28); RED CELL DISTRIBUTION WIDTH 14.5 % (11.5-14.0); SEGMENTED NEUTROPHILS % (AUTO) 58.2 % (42-78)
[2019-04-22 22:44] LABS: ALBUMIN 4.6 g/dL (3.5-5.0); ALKALINE PHOSPHATASE 93 U/L (38-126); ANION GAP 13 (5-19); ASPARTATE AMINO TRANSFERASE 16 U/L (14-36); BILIRUBIN,DIRECT 0.1 mg/dL (0.0-0.4); BILIRUBIN,TOTAL 0.3 mg/dL (0.2-1.3); BLOOD UREA NITROGEN 14 mg/dL (7-20); CALCIUM 9.7 mg/dL (8.4-10.2); CARBON DIOXIDE 24 mmol/L (22-30); CHLORIDE 101 mmol/L (98-107); GLUCOSE 110 mg/dL (75-110); POTASSIUM 4.3 mmol/L (3.6-5.0); TOTAL PROTEIN 8.7 g/dL (6.3-8.2)
--- NOTE | 2019-04-23 01:51 | ER Document Report ---
ED General - General Chief Complaint: Fall Stated Complaint: FALL,LEFT LEG PAIN,BACK PAIN Time Seen by Provider: 04/22/19 20:00 Primary Care Provider: JUAN M LE MD [Primary Care Provider] - Follow up as needed Mode of Arrival: Medic TRAVEL OUTSIDE OF THE [place] IN LAST 30 DAYS: No - HPI Notes: Patient is a very pleasant 63-year-old female who presents to the emergency department for evaluation after a fall. She was sitting in a chair, in the chair leg broke. She fell down. She complained of pain in her chest, her neck, her right knee. She really cannot describe any of the pain for me. Prior to me seeing her in the room, the patient was ambulating around, took herself to the bathroom. When I went to evaluate the patient, she states she has no pain whatsoever except from the c-collar which is been in place for some time. She denies any numbness or tingling. She does not believe she hit her head. She is not on blood thinners. She states she feels ready to go back home. - Related Data Allergies/Adverse Reactions: Benzodiazepines Adverse Reaction (Verified 01/21/17 21:02) anti-psychotics Adverse Reaction (Uncoded 01/21/17 21:02) Abnormal behavior Home Medications: cogentin. Calcium. Ferrous Sulfate. Haldol. Motrin. Zantac. Risperadol. Depakene. Ativan. Robitussin Past Medical History - General Information source: Patient, Emergency Med Personnel, Outside Facility Records - Social History Smoking Status: Never Smoker Family History: Reviewed & Not Pertinent Patient has suicidal ideation: No Patient has homicidal ideation: No - Past Medical History Cardiac Medical History: Reports: Hx Coronary Artery Disease, Hx Hy percholesterolemia, Hx Hypertension Denies: Hx Heart Attack Pulmonary Medical History: Denies: Hx Asthma, Hx Bronchitis, Hx COPD, Hx Pneumonia Neurological Medical History: Reports: Hx Seizures Renal/ Medical History: Denies: Hx Peritoneal Dialysis Musculoskeletal Medical History: Denies Hx Arthritis Skin Medical History: Reports Hx Eczema, Reports Hx MRSA Psychiatric Medical History: Reports: Hx Anxiety, Hx Dementia, Hx Obsessive Compulsive Disorder, Hx Schizoaffective Disorder, 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 Past Surgical History: Reports: Hx Orthopedic Surgery - right index amputation, left index area removal - Immunizations Hx Diphtheria, Pertussis, Tetanus Vaccination: Yes Review of Systems - Review of Systems Constitutional: No symptoms reported EENT: No symptoms reported Cardiovascular: See HPI Respiratory: No symptoms reported Gastrointestinal: No symptoms reported Genitourinary: No symptoms reported Musculoskeletal: See HPI Skin: No symptoms reported Neurological/Psychological: No symptoms reported Physical Exam - Vital signs Vitals: Temp Pulse BP Pulse Ox 98.4 F 88 136/64 H 95 04/22/19 19:51 04/22/19 19:51 04/22/19 19:51 04/22/19 19:51 - Notes Notes: Vital signs reviewed, please refer to chart. Head is normocephalic, atraumatic. Pupils equal round, reactive to light. No facial bone tenderness. Patient has c-collar in place originally. It was removed, she has no midline tenderness or step-off. She has no paraspinal musculature tenderness appreciated. No pain with range of motion. C-spine is able to be cleared and collar is removed. Heart is regular rate and rhythm. Lungs are clear to auscultation bilaterally. Abdomen is soft, nontender, normoactive bowel sounds throughout. Extremities without cyanosis, clubbing. Posterior calves are nontender. Peripheral pulses are equal. Skin is warm and dry. Patient is awake, alert, oriented to place but disoriented to time. Cranial nerves II through XII are grossly intact witho ut focal neurological deficits. Strength is 4+ out of 5 bilateral upper and lower extremities. Reflexes are symmetrical. Sensation is intact. Intact ariacr-[id number], rapid altering movements, [id number]. Course - Re-evaluation Re-evalutation: 04/23/19 01:51 Patient presents emergency department for evaluation after a fall from a chair. She is complaining of right knee pain, chest pain, neck pain. The patient is a terrible historian, cannot really tell me anything other than her pain started after her fall. She had a work-up here including cardiac evaluation, chest x- ray, CT scan of the neck, plain film of the right knee. These were all found to be unremarkable. When I wanted to evaluate the patient she stated she had absolutely no pain whatsoever. She was anxious to be discharged. Given her lack of objective findings, I am amenable to this plan. She is to follow-up with primary care, return to the ED with worsening. - Vital Signs Vital signs: Temp Pulse Resp BP Pulse Ox 98.7 F 66 16 143/71 H 96 04/23/19 00:41 04/23/19 00:41 04/23/19 00:41 04/23/19 00:41 04/23/19 00:41 - Laboratory Result Diagrams: 04/22/19 22:09 04/22/19 22:09 Laboratory results interpreted by me: 04/22/19 04/22/19 22:09 22:09 Hgb 11.0 L Hct 32.8 L RDW 14.5 H Total Protein 8.7 H - Diagnostic Test Radiology reviewed: Image reviewed, Reports reviewed Radiology results interpreted by me: 04/23/19 01:51 04/22/19 22:09 04/22/19 22:09 MCV 82 fl (80-97) 04/22/19 22:09 MCH 27.5 pg (27.0-33.4) 04/22/19 22:09 MCHC 33.5 g/dL (32.0-36.0) 04/22/19 22:09 RDW 14.5 % (11.5-14.0) H 04/22/19 22:09 Seg Neutrophils % 58.2 % (42-78) 04/22/19 22:09 Chloride 101 mmol/L (98-107) 04/22/19 22:09 Carbon Dioxide 24 mmol/L (22-30) 04/22/19 22:09 Anion Gap 13 (5-19) 04/22/19 22:09 Est GFR ( Amer) > 60 (>60) 04/22/19 22:09 Glucose 110 mg/dL (75-110) 04/22/19 22:09 Calcium 9.7 mg/dL (8.4-10.2) 04/22/19 22:09 Total Bilirubin 0.3 mg/dL (0.2-1.3) 04/22/19 22:09 AST 16 U/L (14-36) 04/22/19 22:09 Alkaline Phosphatase 93 U/L (38-126) 04/22/19 22:09 Total Protein 8.7 g/dL (6.3-8.2) H 04/22/19 22:09 Albumin 4.6 g/dL (3.5-5.0) 04/22/19 22:09 04/22/19 22:09 Troponin I < 0.[address] 04/22/19 20:04 IMPRESSION: No acute fracture or malalignment. TECHNICAL DOCUMENTATION: Quality ID # 436: Final reports with documentation of one or more dose reduction techniques (e.g., Automated exposure control, adjustment of the mA and/or kV according to patient size, use of iterative reconstruction technique) copyright 2010 [employer]- All Rights Reserved Knee X-Ray 04/22/19 20:04 IMPRESSION: No fracture. Chest X-Ray 04/22/19 20:07 IMPRESSION: No acute disease. copyright 2010 [employer]- All Rights Reserved - EKG Interpretation by Me Additional EKG results interpreted by me: 04/23/19 01:52 Sinus mechanism with rate of 77 bpm. Normal axis and intervals. Nonspecific ST changes, but no acute changes concerning for acute infarction. Discharge - Discharge Clinical Impression: Fall Qualifiers: Encounter type: initial encounter Qualified Code(s): W19.XXXA - Unspecified fall, initial encounter Cervical strain Qualifiers: Encounter type: initial encounter Qualified Code(s): S16.1XXA - Strain of muscle, fascia and tendon at neck level, initial encounter Contusion of right knee Qualifiers: Encounter type: initial encounter Qualified Code(s): S80.01XA - Contusion of right knee, initial encounter Condition: Stable Disposition: HOME-SNF (ED ONLY) Instructions: Contusion ([facility]), Chest Pain of Unclear Cause ([facility]) Additional Instructions: Work-up here was negative, including scans of your neck, imaging of your chest and knee, and blood work. Follow-up with your primary care provider this week. Return to the emergency department with worsening or new concerning symptoms of any sort. Referrals: JUAN M LE MD [Primary Care Provider] - Follow up as needed
--- NOTE | 2019-04-23 07:35 | EKG REPORT ---
SEVERITY:- BORDERLINE ECG - SINUS RHYTHM BORDERLINE T ABNORMALITIES, INFERIOR LEADS : Confirmed by: Get Hand MD 23-Apr-2019 07:34:55
[2019-04-23 09:44] VITALS: BP 172/89
== END 2019-04-23 09:44 ==
LOC: ER 19:24
DX: S16.1XXA Strain of muscle, fascia and tendon at neck level, initial encounter (principal); S80.01XA Contusion of right knee, initial encounter; R07.9 Chest pain, unspecified; W07.XXXA Fall from chair, initial encounter; I25.10 Atherosclerotic heart disease of native coronary artery without angina pectoris; E78.00 Pure hypercholesterolemia, unspecified; I10 Essential (primary) hypertension; Z86.14 Personal history of Methicillin resistant Staphylococcus aureus infection
CPT/HCPCS: 36415; 71046; 72125; 80053; 84484; 85025; 93005; 93010; 99285

== ENCOUNTER 2019-06-20 20:38 | Emergency (ER) | payer MEDICARE, MEDICAID ==
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
[2019-06-21 00:42] VITALS: BP 144/90
== END 2019-06-21 00:42 | disposition home or self-care (01) ==
LOC: ER 20:38
DX: Z04.89 Encounter for examination and observation for other specified reasons (principal); I25.10 Atherosclerotic heart disease of native coronary artery without angina pectoris; I10 Essential (primary) hypertension
CPT/HCPCS: 99284